=== PATIENT | female | born 1960 | race Caucasian/White ===

== ENCOUNTER → 2017-05-03 | Outpatient (REF) | payer OTHER ==
[~2017-05-03] MED LIST: ACET65TA; BACL10TA2; BACT800T; CIPR500T19; COLA100C2; FLAG500T; GLUC850T; LOPRESS50 PO; MAXIDEX; MAXZ75TA2; MAXZIDE25 PO; MAXZTAB; MELOPOW; OCEAN NASAL SPRAY; PERC5TAB8; VIBR100C
[2017-05-03 11:41] LABS: MEAN CORPUSCULAR HEMOGLOBIN 29.8 pg (27.0-33.0); MEAN CORPUSCULAR HGB CONC 32.4 g/dl (32.0-36.5); MEAN CORPUSCULAR VOLUME 91.8 fl (80.0-96.0); WHITE BLOOD COUNT 18.8 K/mm3 (4.0-10.0)
[2017-05-03 12:01] LABS: ANION GAP 10 MEQ/L (8-16); BLOOD UREA NITROGEN 11 MG/DL (7-18); CALCIUM LEVEL 8.9 MG/DL (8.5-10.1); CARBON DIOXIDE LEVEL 25 MEQ/L (21-32); CHLORIDE LEVEL 104 MEQ/L (98-107); CREATININE FOR GFR 0.58 MG/DL (0.55-1.02); GLOMERULAR FILTRATION RATE > 60.0 (>51); GLUCOSE, FASTING 158 MG/DL (70-105); MAGNESIUM LEVEL 2.2 MG/DL (1.8-2.4); POTASSIUM SERUM 4.5 MEQ/L (3.5-5.1); SODIUM LEVEL 139 MEQ/L (136-145)
== END ==
LOC: M LAB REF 09:30
PROVIDERS: ATTEND Internal Medicine
DX: D64.9 Anemia, unspecified (principal); I12.9 Hypertensive chronic kidney disease with stage 1 through stage 4 chronic kidney disease, or unspecified chronic kidney disease; R00.0 Tachycardia, unspecified

== ENCOUNTER → 2017-05-11 | Outpatient (CLI) | payer OTHER ==
[2017-05-11 19:15] LABS: MEAN CORPUSCULAR HEMOGLOBIN 29.8 pg (27.0-33.0); MEAN CORPUSCULAR HGB CONC 32.5 g/dl (32.0-36.5); MEAN CORPUSCULAR VOLUME 91.6 fl (80.0-96.0); RED CELL DISTRIBUTION WIDTH 13.5 % (11.5-14.5); WHITE BLOOD COUNT 14.9 K/mm3 (4.0-10.0)
[2017-05-11 20:13] LABS: ANION GAP 11 MEQ/L (8-16); BLOOD UREA NITROGEN 17 MG/DL (7-18); CARBON DIOXIDE LEVEL 29 MEQ/L (21-32); CHLORIDE LEVEL 103 MEQ/L (98-107); GLOMERULAR FILTRATION RATE > 60.0 (>51); GLUCOSE, FASTING 79 MG/DL (70-105); POTASSIUM SERUM 4.5 MEQ/L (3.5-5.1); SODIUM LEVEL 143 MEQ/L (136-145)
== END ==
LOC: M WUC 11:51
PROVIDERS: ATTEND Orthopaedic Surgery
DX: Z47.89 Encounter for other orthopedic aftercare (principal)

== ENCOUNTER → 2017-05-27 | Outpatient (REF) | payer OTHER | LOC: M LAB REF 16:40 | PROVIDERS: ATTEND Internal Medicine | DX: D72.829 Elevated white blood cell count, unspecified (principal) ==

== ENCOUNTER → 2018-01-14 | Outpatient (REF) | payer OTHER ==
[2018-01-14 18:24] LABS: INR 0.88
[2018-01-14 18:25] LABS: PARTIAL THROMBOPLASTIN TIME 27.9 SECONDS (26.8-37.9)
== END ==
LOC: M LAB REF 16:43
DX: M54.6 Pain in thoracic spine (principal); Z00.00 Encounter for general adult medical examination without abnormal findings; M54.5 Low back pain

== ENCOUNTER → 2018-01-20 | Outpatient (CLI) | payer OTHER ==
[~2018-01-20] MED LIST changes: -ACET65TA; +ACETAMINOPHEN 325 MG TAB As Ordered; -BACL10TA2; -BACT800T; -CIPR500T19; -COLA100C2; -FLAG500T; -GLUC850T; +ISOVUE-M 300 61% 15ML VIAL (Q9967) As Ordered; +LIDOCAINE 1% MDV 20ML VIAL As Ordered; -LOPRESS50 PO; -MAXIDEX; -MAXZ75TA2; -MAXZIDE25 PO; -MAXZTAB; -MELOPOW; -OCEAN NASAL SPRAY; -PERC5TAB8; -VIBR100C
== END ==
LOC: M RADPRO 07:23
DX: M51.04 Intervertebral disc disorders with myelopathy, thoracic region (principal); M51.06 Intervertebral disc disorders with myelopathy, lumbar region; M54.5 Low back pain; M48.061 Spinal stenosis, lumbar region without neurogenic claudication; I10 Essential (primary) hypertension; R01.1 Cardiac murmur, unspecified; N83.209 Unspecified ovarian cyst, unspecified side; M79.7 Fibromyalgia; Z79.899 Other long term (current) drug therapy; Z88.0 Allergy status to penicillin; Z88.8 Allergy status to other drugs, medicaments and biological substances
CPT/HCPCS: 62284

== ENCOUNTER → 2018-04-08 | Outpatient (REF) | payer OTHER | LOC: M LAB REF 12:03 | DX: R60.0 Localized edema (principal); M19.90 Unspecified osteoarthritis, unspecified site ==

== ENCOUNTER → 2018-04-24 | Outpatient (REF) | payer OTHER ==
[2018-04-24 13:46] LABS: C REACTIVE PROTEIN QUANTITATIV 1.27 MG/DL (0.00-0.30)
== END ==
LOC: M LAB REF 12:10
DX: M79.7 Fibromyalgia (principal)
CPT/HCPCS: 86140

== ENCOUNTER → 2018-11-10 | Outpatient (REF) | payer OTHER ==
[~2018-11-10] MED LIST changes: +ACET65TA; -ACETAMINOPHEN 325 MG TAB As Ordered; +BACL10TA2; +BACT800T; +CARD120C3 PO; +CARD40TA PO; +CIPR500T19; +COLA100C2; +CYCL10TA PO; +CYMB1CAP4 PO; +FLAG500T; +GLUC850T; -ISOVUE-M 300 61% 15ML VIAL (Q9967) As Ordered; -LIDOCAINE 1% MDV 20ML VIAL As Ordered; +LISI-542 PO; +LOPRESS50 PO; +MAXIDEX; +MAXZ75TA2; +MAXZIDE25 PO; +MAXZTAB; +MELA3TAB49 PO; +MELOPOW; +MIRA3350 PO; +OCEAN NASAL SPRAY; +PERC5TAB8; +VIBR100C; +[UNRECOGNIZED DRUG - OTHER]
[2018-11-13 00:06] LABS: Lyme Disease IgG/IgM Antibodie <0.91 ISR (0.00-0.90); Lyme Disease IgM Ab Quantitati <0.80 index (0.00-0.79)
== END ==
LOC: M LAB REF 17:51
PROVIDERS: ATTEND Internal Medicine
DX: M25.50 Pain in unspecified joint (principal)

== ENCOUNTER → 2018-11-17 | Outpatient (REF) | payer OTHER | LOC: M LAB REF 12:33 | PROVIDERS: ATTEND Internal Medicine | DX: I10 Essential (primary) hypertension (principal) ==

== ENCOUNTER 2019-04-20 10:57 | Emergency (ER) | payer OTHER ==
[~2019-04-20] VITALS: Ht 165.1 cm; Wt 103.6 kg
[2019-04-20 12:32] VITALS: BP 145/74
--- NOTE | 2019-04-20 13:51 | REP ---
REASON FOR EXAM: Pain after trauma. The examination consists of AP pelvis and two-view liver function test hip. A single AP view of the pelvis was performed. The hip joint spaces are symmetric and relatively well maintained. There is no acute fracture or destructive osseous lesion. Spinal fixation is noted including sacroiliac fixation. Two views of the left hip show the hip joint space to be symmetric and relatively well maintained with no acute fracture, dislocation, or subluxation. Electronically Signed by Gene Calabrese DO 04/20/2019 04:45 P
== END 2019-04-20 12:55 | disposition home or self-care (01) ==
LOC: M ED 10:57
DX: S70.02XA Contusion of left hip, initial encounter (principal); W19.XXXA Unspecified fall, initial encounter; Y92.099 Unspecified place in other non-institutional residence as the place of occurrence of the external cause; Y93.9 Activity, unspecified; Y99.9 Unspecified external cause status; J30.2 Other seasonal allergic rhinitis; Z79.84 Long term (current) use of oral hypoglycemic drugs; Z79.899 Other long term (current) drug therapy; Z91.013 Allergy to seafood; Z91.010 Allergy to peanuts; Z91.89 Other specified personal risk factors, not elsewhere classified; Z88.0 Allergy status to penicillin; Z88.8 Allergy status to other drugs, medicaments and biological substances

== ENCOUNTER → 2020-04-04 | Outpatient (CLI) | payer OTHER ==
[~2020-04-04] MED LIST changes: +ALBU8.5H; +BUPR15TASR; +CYCL-707 PO; -CYCL10TA PO; +E-Z-GAS II EFFERVESCENT PACKET (SODIUM BICARB./CITRIC ACID/SIMETHICONE) As Ordered ONE; +E-Z-GAS II EFFERVESCENT PACKET (SODIUM BICARB./CITRIC ACID/SIMETHICONE) ONE; +E-Z-HD 98% w/w 340GM SUSP BTL As Ordered ONE; +E-Z-HD 98% w/w 340GM SUSP BTL ONE; +E-Z-PAQUE 96% w/w SUSP 176GM BTL As Ordered ONE; +E-Z-PAQUE 96% w/w SUSP 176GM BTL ONE; +ESSE250T PO; +GNP650TA8 PO; +HYDR12.55; +HYDR200T3; +LISI-538; +METO1TAB33; +OMEP-218 PO; +ORPH100T; +SPIR-10; +TRAM50TA2
--- NOTE | 2020-05-30 08:19 | REP ---
AIR CONTRAST ESOPHAGRAM: The procedure was performed under the direct supervision of Dr. Galloway. The images were reviewed with Dr. Galloway. FINDINGS: A single view PA chest x-ray is submitted as a cattle broker film. The superior mediastinal structures are midline. The heart size is within normal limits. The lungs are clear. Liquid barium and gas-producing granules were given in the erect position as well as liquid barium in the prone oblique positions in order to perform a double contrast esophagram examination. The oral and pharyngeal stages of deglutition are unremarkable. During esophageal transport, there are tertiary waves demonstrated. There is a feline esophagus appearance which may represent early esophagitis. There is a large, fixed hiatal hernia. There is gastroesophageal reflux demonstrated to the level of the thoracic inlet. IMPRESSION: 1. There are tertiary waves demonstrated. 2. There is a feline esophagus appearance which may represent early esophagitis. There is no hilario ulcer identified. 3. There is a large fixed hiatal hernia. There is gastroesophageal reflux demonstrated to the level of the thoracic inlet. 0.8 minutes of fluoroscopy time was utilized for this procedure. [facility]
== END ==
LOC: M RAD 08:26
PROVIDERS: ATTEND Internal Medicine Gastroenterology
DX: R13.12 Dysphagia, oropharyngeal phase (principal); K44.9 Diaphragmatic hernia without obstruction or gangrene

== ENCOUNTER → 2020-06-05 | Outpatient (CLI) | payer OTHER ==
[~2020-06-05] MED LIST changes: -E-Z-GAS II EFFERVESCENT PACKET (SODIUM BICARB./CITRIC ACID/SIMETHICONE) As Ordered ONE; -E-Z-GAS II EFFERVESCENT PACKET (SODIUM BICARB./CITRIC ACID/SIMETHICONE) ONE; -E-Z-HD 98% w/w 340GM SUSP BTL As Ordered ONE; -E-Z-HD 98% w/w 340GM SUSP BTL ONE; -E-Z-PAQUE 96% w/w SUSP 176GM BTL As Ordered ONE; -E-Z-PAQUE 96% w/w SUSP 176GM BTL ONE
== END ==
LOC: M LABSMTC 09:40
PROVIDERS: ATTEND Anesthesiology
DX: Z01.812 Encounter for preprocedural laboratory examination (principal); Z20.828 Contact with and (suspected) exposure to other viral communicable diseases
CPT/HCPCS: C9803; U0003

== ENCOUNTER 2020-06-10 10:33 | Day surgery (SDC) | payer OTHER ==
[~2020-06-10] VITALS: Ht 162.6 cm; Wt 99.7 kg
[~2020-06-10 10:33] MED LIST changes: -ESSE250T PO; +NS 1,000 ML IV ONE; -OMEP-218 PO
[2020-06-10] MEDS ORDERED: ESSE250T PO (11:01)
[2020-06-10] MEDS ORDERED: OMEP-218 PO (11:01)
[2020-06-10] MEDS ORDERED: CYCL-707 PO (11:01)
[2020-06-10] MEDS ORDERED: propofoL 200 MG/20 ML VIAL As Ordered ONE (11:18)
[2020-06-10] MEDS ORDERED: LIDOCAINE 2% 100MG/5ML SDV (FOR ANES.) As Ordered ONE (11:18)
[2020-06-10] MEDS ORDERED: fentaNYL 100 MCG/2 ML INJECTION (J3010) As Ordered ONE (12:31)
--- NOTE | 2020-06-10 12:49 | ROOR ---
Patient Name: Brenda Ramirez Procedure Date: 06/10/2020 12:32 PM Date of : 1960 Age: 59 Gender: Female Note Status: Finalized Procedure: Upper GI endoscopy Indications: Oropharyngeal phase dysphagia Providers: Celestino HAMPTON MD Referring MD: Barbra HOOVER MD Requesting Provider: Medicines: Monitored Anesthesia Care Complications: No immediate complications. Procedure: Pre-Anesthesia Assessment: - The heart rate, respiratory rate, oxygen saturations, blood pressure, adequacy of pulmonary ventilation, and response to care were monitored throughout the procedure. The Endoscope was introduced through the mouth, and advanced to the second part of duodenum. The upper GI endoscopy was accomplished without difficulty. The patient tolerated the procedure well. Findings: A web was found at the cricopharyngeus. The scope was withdrawn. Dilation was performed with a Rocha dilator with mild resistance at 54 Fr. The dilation site was examined following endoscope reinsertion and showed complete resolution of luminal narrowing. A large hiatal hernia was present. A single 5 mm semi-sessile polyp was found on the anterior wall of the stomach. The polyp was removed with a cold snare. Resection and retrieval were complete. Two non-bleeding gastric ulcers with no stigmata of bleeding were found in the prepyloric region of the stomach. The largest lesion was 7 mm in largest dimension. Biopsies were taken with a cold forceps for histology. The exam was otherwise without abnormality. 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 Dilated. - Large hiatal hernia. - A single gastric polyp. Resected and retrieved. - Non-bleeding gastric ulcers with no stigmata of bleeding. Biopsied. - The examination was otherwise normal. Recommendation: - Use Prilosec (omeprazole) 40 mg PO daily. - (the script was sent to your pharmacy on file) - Telephone endoscopist for pathology results in 2 weeks. - Repeat upper endoscopy in 3 months to check healing. - My office will call you to reschedule the procedure. Celestino Hampton MD Celestino HAMPTON MD 06/10/2020 12:49:03 PM Electronically signed by Celestino HAMPTON MD Number of Addenda: 0 Note Initiated On: 06/10/2020 12:32 PM Estimated Blood Loss: Estimated blood loss: none.
[2020-06-10 13:10] VITALS: BP 125/73
== END 2020-06-10 13:19 | disposition home or self-care (01) ==
LOC: M OPP 10:33
PROVIDERS: ATTEND Internal Medicine Gastroenterology
DX: Q39.4 Esophageal web (principal); K44.9 Diaphragmatic hernia without obstruction or gangrene; K31.7 Polyp of stomach and duodenum; K25.9 Gastric ulcer, unspecified as acute or chronic, without hemorrhage or perforation; R13.12 Dysphagia, oropharyngeal phase; K57.30 Diverticulosis of large intestine without perforation or abscess without bleeding; M79.7 Fibromyalgia; Z79.891 Long term (current) use of opiate analgesic; Z79.899 Other long term (current) drug therapy; Z88.0 Allergy status to penicillin; Z88.6 Allergy status to analgesic agent; Z91.013 Allergy to seafood; Z91.018 Allergy to other foods; Z91.048 Other nonmedicinal substance allergy status
CPT/HCPCS: 43239; 43251; 43450; 88305; J3010

== ENCOUNTER → 2020-10-02 | Outpatient (CLI) | payer OTHER ==
[~2020-10-02] MED LIST changes: +BACL10TA2 PO; -BUPR15TASR; +BUPR15TASR PO; +ESSE250T PO; -HYDR12.55; +HYDR12.55 PO; -HYDR200T3; +HYDR200T3 PO; -LISI-538; -LISI-542 PO; +LISI-898 PO; +LISI20TA33 PO; -METO1TAB33; +METO1TAB33 PO; +NORT50CA PO; -NS 1,000 ML IV ONE; +OMEP-218 PO; -SPIR-10; +SPIR-10 PO; -TRAM50TA2; +TRAM50TA2 PO
== END ==
LOC: M LABSMTC 09:04
PROVIDERS: ATTEND Anesthesiology
DX: Z01.812 Encounter for preprocedural laboratory examination (principal); Z20.822 Contact with and (suspected) exposure to COVID-19

== ENCOUNTER 2020-10-07 12:47 | Day surgery (SDC) | payer OTHER ==
[~2020-10-07] VITALS: Ht 160 cm; Wt 96.1 kg
[~2020-10-07 12:47] MED LIST changes: +LIDOCAINE 2% 100MG/5ML SDV (FOR ANES.) As Ordered ONE; +LISI-538 PO; +LISI-542 PO; -LISI-898 PO; -LISI20TA33 PO; +NS 1,000 ML IV ONE; +propofoL 200 MG/20 ML VIAL As Ordered ONE
--- OUTSIDE RECORDS SUMMARY | 2020-10-07 12:53 | CCD | Continuity of Care Document ---
Author Author [facility] Organization [facility] Address Unknown Phone Unavailable Care Team Providers Care Human Resource Assistant Name Role Phone Juju Dominguez MD Unavailable Unavailable Allergies, Adverse Reactions, Alerts Substance Reaction Status Criticality tree nut Active No Information Fish Containing Products Active No Information Penicillins Active No Information aspirin Active No Information Medications Medication Instructions Dosage Effective Dates (start - stop) Sta tus Comments Plaquenil 200 mg tablet TAKE TWO TABLETS BY MOUTH EVERY DAY - Active DX: M06.09 nortriptyline 10 mg capsule take 1 - 3 Capsule by oral route ev david bedtime - Active tramadol 50 mg tablet take 1 - 2 Tablet by oral ro brigida 4 times every day as needed 50 MG - Active MDD = 6 (SIX) Lidoderm 5 % topical patch apply 1 patch by transderma l route every day (May wear up to 12hours.) 1.00 patch - Active omeprazole 40 mg capsule,delayed release take 1 capsul e by oral route every day before a meal 40 MG - Active bupropion HCl XL 150 mg 24 hr tablet, extended release take 1 tablet by oral route every day 150 MG - Active spironolactone 25 mg tablet take 0.5 tablet by oral route every day 12.5 MG - Active metoprolol succinate ER 100 mg tablet,extended release 24 hr take 1 tablet by oral route every day 100 MG - Active hydrochlorothiazide 12.5 mg capsule take 1 capsule by oral r oute every day 12.5 MG - Active Tumersaid 100 mg-100 mg-100 mg-125 mg tablet - Active lisinopril 20 mg tablet take 1 tablet by oral route every day 20 MG - Active magnesium 64 mg (magnesium chloride) tablet,delayed release 5 ti mes a week - Active vitamin B complex capsule one po every day - Acti ve flaxseed oil 1,300 mg-omega 3,6,9 845 mg-117 mg-117 mg capsu le one po every day - Active melatonin 10 mg tablet one po every hs as needed - Active Miralax 17 gram/dose Oral Powder take (17G) by oral r oute every day mixed with 8 oz. water, juice, soda, coffee or tea 17 G - Active EpiPen 0.3 mg/0.3 mL (1:1,000) IM Injector inject (0.3 MG) by intramuscular route once as needed for anaphylaxis - Active Problems Condition Type Effective Dates (start - stop) Clinical S tatus Comments Fibromyalgia Diagnosis interpretation (observable entity) Rheumatoid arthritis without rheumatoid factor, multip le sites Diagnosis interpretation (observable entity) Rheumatoid arthritis w/o rheumatoid factor, multiple s ites Diagnosis interpretation (observable entity) Fibromyalgia Diagnosis interpretation (observable entity) Rheumatoid arthritis w/o rheumatoid factor, multiple s ites Diagnosis interpretation (observable entity) - Rheumatoid arthritis w/o rheumatoid factor, multiple s ites Diagnosis interpretation (observable entity) Fibromyalgia Diagnosis interpretation (observable entity) Primary generalized (osteo)arthritis Diagnosis interpr etation (observable entity) Rheumatoid arthritis w/o rheumatoid factor, multiple s ites Diagnosis interpretation (observable entity) Fibromyalgia Diagnosis interpretation (observable entity) Rheumatoid arthritis w/o rheumatoid factor, multiple s ites Diagnosis interpretation (observable entity) Fibromyalgia Diagnosis interpretation (observable entity) Rheumatoid arthritis w/o rheumatoid factor of multiple sites Diagnosis interpretation (observable entity) Other mcfp drug therapy Diagnosis interpretation (observable e ntity) Fibromyalgia Diagnosis interpretation (observable entity) Polymyalgia rheumatica Diagnosis interpretation (observable entity) Fibromyalgia Diagnosis interpretation (observable entity) Fibromyalgia Diagnosis interpretation (observable entity) Fibromyalgia Diagnosis interpretation (observable entity) Fibromyalgia Diagnosis interpretation (observable entity) Spinal stenosis, lumbar region Diagnosis interpretation (observable entity) Fibromyalgia Diagnosis interpretation (observable entity) Primary generalized (osteo)arthritis Diagnosis interpr etation (observable entity) Fibromyalgia Diagnosis interpretation (observable entity) Primary generalized (osteo)arthritis Diagnosis interpr etation (observable entity) Fibromyositis Problem (finding) - Active Mapped from [employer] Chronic Conditions table on 12/31/2014 by the ICD9 to SNOMED Bulk Mapping Utility. The mapped diagnosis code was Fibromyalgia / Myalgia, 729.1, added by Chaka Bermudez MD, with responsible provider Chaka Bermudez MD. Onset date 11/11/2012; last addressed on 05/22/2013. Degenerative joint disease involving multiple joints Problem (finding) - Active Mapped from [facility] Chronic Cond itions table on 11/16/2014 by the ICD9 to SNOMED Bulk Mapping Utility. The mapped diagnosis code was Osteoarthritis - multiple sites, 715.09, added by Chaka Bermudez MD, with res ponsible provider Chaka Bermudez MD. Onset date 11/11/2012; last addressed on 11/11/2012. Procedures Procedure Date No Information Results Test Name Date and Time Measure Units Reference Range Abnormal Flag St atus Comments No Information Advance Directives Directive Yes / No Effective Date File Name No Information Encounters Encounter Description Practice Location Reason(s) For Visit Diagnose s Date Provider Providers Copied on Encounter [facility], [address] [place] [address], [id number], tel:[phone] [facility] No Information Alberto Matute. [address] [place] [address], [id number], [place]. tel:[phone] [facility], [address] [place] [address], [id number], [place] tel:[phone] [facility] No Information Lara Null. [address] [place] [address], [id number], [place]. tel:[phone] [facility], [address] [place] [address], [id number], [place] tel:[phone] [facility] FibromyalgiaRheumatoid arthritis without rheumatoid factor, multiple sites Lara Null. [address] [place] [address], [id number], [place]. tel:[phone] Consulting Provider: Ferny Jiménez MD, [address] [place] [address], [address]. tel:[phone] Provider: Celestino Hu, [address] [facility] [address], [place], [address]. tel:[phone] Consulting Provider: Annmarie Winchester [facility], [address] [facility] [address], [place], [address]. tel:[phone] Provider: Barbra Wilson MD, [address] [address], [place], [address]. tel:[phone] [facility], [address] [place] [address], [id number], [place] tel:[phone] [facility] No Information Lara Null. [address] [place] [address], [id number], [place]. tel:[phone] [facility], [address] [place] [address], [id number], [place] tel:[phone] [facility] Rheumatoid arthritis w/o rheumatoid factor, multiple sitesFibromyalgia Lara Null. [address] [place] [address], [id number], [place]. tel:[phone] Consulting Provider: Ferny Jiménez MD, [address] [place], [address]. tel:[phone] Provider: Celestino Hu, [address] [address], [place], [address]. tel:[phone] Provider: Barbra Wilson MD, [address], [address]. tel:[phone] [facility], [address] [place] [address], [id number], [place] tel:[phone] [facility] No Information Lara Null. [address] [place] [address], [id number], [place]. tel:[phone] [facility], [address] [place] [address], [id number], [place] tel:[phone] [facility] Rheumatoid arthritis w/o rheumatoid factor, multiple sites Lara negron. [address] [place] [address], [id number], [place]. tel:[phone] Referring Provider: Barbra Wilson MD, [address], [address]. tel:[phone] [facility], [address] [place] [address], [id number], [place] tel:[phone] [facility] Rheumatoid arthritis w/o rheumatoid factor, multiple sitesFibromyalgiaPrimary generalized (osteo)arthritis Lara Null. [address] [place] [address], [id number], [place]. tel:[phone] Consulting Provider: Ferny Jiménez MD, [address] [place] [address], [id number]. tel:[phone] Provider: Celestino Hu, [address] [place] [address], [place], [address]. tel:[phone] Provider: Barbra Wilson MD, [address], [address]. tel:[phone] [facility], [address] [place] [address], [id number], [place] tel:[phone] [facility] Rheumatoid arthritis w/o rheumatoid factor, multiple sitesFibromyalgia Lara Null. [address] [place] [address], [id number], [place]. tel:[phone] Consulting Provider: Ferny Jiménez MD, [address] [place] [address], [address]. tel:[phone] Provider: Celestino Hu, [address] [address], [place], [address]. tel:[phone] Provider: Barbra Wilson MD, [address], [address]. tel:[phone] [facility], [address] [place] [address], [id number], tel:[phone] [facility] Rheumatoid arthritis w/o rheumatoid factor, multiple sitesFibromyalgia Lara Null. [address] [place] [address], [id number], . tel:[phone] Consulting Provider: Ferny Jiménez MD, [address] [place] [address], [address]. tel:[phone] Provider: Celestino Hu, [address] [place] [address], [place], [address]. tel:[phone] Provider: Barbra Wilson MD, [address], [address]. tel:[phone] [facility], [address] [place] [address], [id number], tel:[phone] [facility] Rheumatoid arthritis w/o rheumatoid factor of multiple sitesOther mcfp drug therapy Lara Null. [address] [place] [address], [id number], . tel:[phone] Consulting Provider: Ferny Jiménez MD, [address] [place] [address], [address]. tel:[phone] Provider: Celestino Hu, [address] [place] [address], [address]. tel:[phone] Referring Provider: Barbra Wilson MD, [address], [address]. tel:[phone] [facility], [address] [place] [address], [id number], tel:[phone] [facility] FibromyalgiaPolymyalgia rheumatica Lara Null. [address] [place] [address], [id number], [place]. tel:[phone] Consulting Provider: Ferny Jiménez MD, [address] [place], [address]. tel:[phone] Provider: Barbra Wilson MD, [address] [address], [place], [address]. tel:[phone] [facility], [address] [place] [address], [id number], [place] tel:[phone] [facility] Fibromyalgia Lara Null. [address] [place], [place], [id number], [place]. tel:[phone] Consulting Provider: Ferny Jiménez MD, [address] [place], [address]. tel:[phone] Provider: Barbra Wilson MD, [address], [address]. tel:[phone] [facility], [address] [place] [address], [id number], [place] tel:[phone] [facility] Fibromyalgia Lara Null. [address] [place] [address], [id number], [place]. tel:[phone] Consulting Provider: Ferny Jiménez MD, [address] [place], [address]. tel:[phone] Provider: Barbra Wilson MD, [address], [address]. tel:[phone] [facility], [address] [place] [address], [id number], [place] tel:[phone] [facility] Fibromyalgia Lara Null. [address] [place], [place], [id number], [place]. tel:[phone] Consulting Provider: Ferny Jiménez MD, [address] [place], [address]. tel:[phone] Provider: Barbra Wilson MD, [address], [address]. tel:[phone] [facility], [address] [place] [address], [id number], [place] tel:[phone] [facility] FibromyalgiaSpinal stenosis, lumbar region Lara Null. [address] [place] [address], [id number], [place]. tel:[phone] Consulting Provider: Ferny Jiménez MD, [address] [place] [address], [address]. tel:[phone] Provider: Barbra Wilson MD, [address], [address]. tel:[phone] [facility], [address] [place] [address], [id number], [place] tel:[phone] [facility] FibromyalgiaPrimary generalized (osteo)arthritis Lara Null. [address] [place] [address], [id number], [place]. tel:[phone] Referring Provider: Barbra Wilson MD, [address], [address]. tel:[phone] [facility], [address] [place] [address], [id number], [place] tel:[phone] [facility] FibromyalgiaPrimary generalized (osteo)arthritis Lara Null. [address] [place] [address], [id number], [place]. tel:[phone] Referring Provider: Barbra Wilson MD, [address], [address]. tel:[phone] [facility], [address] [place] [address], [id number], [place] tel:[phone] [facility] No Information Lara Null. [address] [place], [place], [id number], . tel:[phone] Referring Provider: Barbra Wilson MD, [address] [address], [place], [address]. tel:[phone] Family History Family Member Type Diagnosis Age At Onset Father Problem (finding) Gout Maternal grandmother Problem (finding) arthritis Immunizations Vaccine Date Status Comments Historical Influenza Vaccine administered Not e: approx ; Source: Other Provider Influenza, injectable, MDCK, preservativ e free, 0.5 mL dosage, Flucelvax Quad administered Note: patient evie jasso ; Source: Other Provider Influenza, injectable, quadrivalent, spl it virus, 18 years or older Afluria Quad administered Note: patient evie alig e ; Source: Other Provider Influenza, injectable, trivalent, split virus, 4 years and older, Fluvirin administered Note: patient evie jasso ; Source: Other Provider Never had a PPV23 administered Source: New Im munization Record Payers Payer name Insurance type Covered alliance party ID Authorization(s ) [employer] No Referral Required [id number] Social History Type Description Quantity Date Captured Comments Sex Female Smoking Status No Information Vital Signs Date / Time: Height Weight BMI Pulse Rate Blood Pressure Temperatu re Respiratory Rate Body Surface Area Head Circumference BMI percentile Pulse Ox In haled Ox No Information Chief Complaint And Reason For Visit No Information Reason For Referral Reason For Referral No Information Plan Of Treatment Date Type Action Status Referral Referred To: [facility] Ordered: Referrals: Dermatology. [facility]. Location: [place], [place]. Evaluate and treat Appointment date/timeframe: 08/18/2020 ordered Referral Ordered: Celestino Ramos -[facility] : Ophthalmology (related to Rheumatoid arthritis w/o rheumatoid factor, multiple sites) ordered Referral Referred To: Celestino Ramos [address] [facility] [address] [place], [phone] Ordered: Referrals: [facility] Physicians : Ophthalmology. Celestino Ramos ordered Appointment Brenda Ramirez BOOKED History Of Present Illness Encounter Date Complaint History Of Present I llness No Information Functional Status Date Functional Assessment No Information Medications Administered Medication Instructions Dosage Effective Dates (start - stop) Sta tus Comments No Information Instructions Date Instruction Additional Informati on I will refer you to Saurabh FLEMING. Call if problems develop with the feet. Call if problems develop. Call if problems develop.It needs to stop getting worse before it improves. If we don't call you about the test resu lts, call us. Risks/benefits of medications discussed, handout given on DMARDs [facility] handout provided and discussed on Polymyalgia Rheumatica, Rheumatoid Arthritis Call if problems develop. Call if problems develop. Call if problems develop. Physical Examination Exam Findings Details No Information
--- OUTSIDE RECORDS SUMMARY | 2020-10-07 12:54 | CCD | Continuity of Care Document ---
Author Author Brenda RIVERA MD Organization Unknown Address [address] [place] [address] Phone [phone] Problems Active Problems Provider Date Excessive and frequent menstruation Ronna Rivera MD Onse t: 12/26/2011 Social History Type Date Description Comments Sex Unknown Tobacco Use Start: Unknown Never Smoked Cigarettes Tobacco Use Start: Unknown Non-Smoker, Non-Drinker, Non-Luis Fernando g User Smoking Status Reviewed: 08/26/20 Non-Smoker, Non-Drinker, Non- Drug User Tobacco Use Start: Unknown Patient has never smoked Exercise Type/Frequency Exercises regularly Allergies, Adverse Reactions, Alerts Active Allergies Reaction Severity Comments Date Aspirin 09/05/2007 PCN 09/05/2007 Nuts 09/05/2007 Fish 09/05/2007 Medications Active Medications SIG Qnty Indications Ordering Provide r Date Vitamin D 32638Vyaj Capsules weekly Ronna Rivera MD 03/07/2012 Lisinopril 10mg Tablets Ronna Rivera MD 02/21/2011 Tramadol HCL 50mg Tablets Unknown Melatonin 3mg Tablets 3 at hs Unknown Miralax 3350NF Powder Unknown Plaquenil 200mg Tablets Unknown Metoprolol Succinate ER 100mg Tablets ER 24HR Unknown Magnesium 400mg Tablets Unknown Prilosec 40mg Capsules DR Unknown Hydrochlorothiazide 12.5mg Capsule s 1 by mouth every morning Unknown Spironolactone 25mg Tablets one by mouth twice daily Unknown Nortriptyline 30MG AT hs Unknown Bupropion HCL ER (SR) 150mg Tablets ER 12HR 1 by mouth daily Unknown Immunizations Description No Information Available Vital Signs Date Vital Result Comment 08/26/2020 8:07am BP Systolic 128 mmHg BP Diastolic 76 mmHg Height 63.25 inches 5'3.25" Weight 207.00 lb BMI (Body Mass Index) 36.4 kg/m2 BSA (Body Surface Area) 1.97 m2 08/21/2019 2:46pm BP Systolic 128 mmHg BP Diastolic 66 mmHg Height 63.5 inches 5'3.50" Weight 225.00 lb BMI (Body Mass Index) 39.2 kg/m2 BSA (Body Surface Area) 2.04 m2 Results Test Acquired Date Facility Test Result H/L Range Note Thinprep W/Reflex HR HPV If Asc-US 08/26/2020 Propa th TP Reflex HPV ASCUS Normal Normal 1 TP Reflex HPV ASCUS SEE IMAGE 1 SPECIME N PART A. Cervical, Endocervical, ThinPrep Pap (Walking Dragline Operator) CYTOLOGY HX-------- Other Information:Previous Normal Pap: 08/21/19 Post-menopausal FINAL DIAGNOSIS---- INTERPRETATION: Negative for Intraepithelial Lesion or Malignancy. SPECIMEN ADEQUACY:Satisfactory for evaluation. Endocervical/transformation zone component present. Procedures Date Code Description Status 09/17/2018 [id number] Mammogram Completed 08/26/2015 [id number] Mammogram Completed Medical Devices Description No Information Available Encounters Type Date Location Provider Dx Diagnosis Office Visit 08/26/2020 9:00a [facility] tu[facility] hand Ronna Rivera MD Z0 1.419 Encntr for sweet dough mixer exam (general) (routine) w/o abn findings Z12.4 Encounter for screening for malignant neoplasm of cervix Z12.39 Encounter for oth screening for malignant neoplasm of breast Assessments Date Code Description Provider 08/26/2020 Z01.419 Encounter for gyneco logical examination (general) (routine) without abnormal findings Ronna Rivera MD 08/26/2020 Z12.4 Encounter for screening for vicky gnant neoplasm of cervix Ronna Rivera MD 08/26/2020 Z12.39 Encounter for other screening for malignant neoplasm of breast Ronna Rivera MD Plan of Treatment Future Appointment(s):* 09/08/2021 8:45 am - Ronna Rivera MD at [facility] tufter hand 08/26/2020 - Ronna Rivera MD* Z01.419 Encounter for gynecological examination (general) (routine) without abnormal findings * Z12.4 Encounter for screening for malignant neoplasm of cervix * Z12.39 Encounter for other screening for malignant neoplasm of breast Functional Status Description No Information Available Mental Status Description No Information Available Referrals Description No Information Available
--- OUTSIDE RECORDS SUMMARY | 2020-10-07 12:54 | CCD | Continuity of Care Document ---
Author Author Brenda RIVERA MD Organization Unknown Address [address] [place] [address] Phone [phone] Problems Active Problems Provider Date Excessive and [...] Indications Ordering Provide r Date Vitamin D 21275Nqym Capsules weekly Ronna Rivera MD 03/07/2012 Lisinopril [...] BSA (Body Surface Area) 2.04 m2 Results Description No Information Available Procedures Date Code Description Status 09/17/2018 [id number] Mammogram Completed 08/26/2015 [id number] Mammogram Completed Medical Devices Description No Information Available Encounters Type Date Location Provider Dx Diagnosis Office Visit 08/26/2020 9:00a [facility] insulation mechanic Ronna Rivera MD Z0 1.419 Encntr for roofer applicator exam (general) (routine) w/o abn findings Z12.4 [...] 8:45 am - Ronna Rivera MD at [facility] insulation mechanic 08/26/2020 - Ronna Rivera MD* Z01.419 Encounter for gynecological examination (general) (routine) without abnormal findings * Z12.4 Encounter for screening for malignant neoplasm of cervix* New Labs:* Thinprep W/Reflex HR HPV If Asc-US, Ordered: 08/26/20 * Z12.39 Encounter for other screening for malignant neoplasm of breast Functional Status Description No Information Available Mental Status Description No Information Available Referrals Description No Information Available
--- OUTSIDE RECORDS SUMMARY | 2020-10-07 12:54 | CCD | Continuity of Care Document ---
Author Author [facility] Organization [facility] Address Unknown Phone Unavailable Care Team Providers Care Compressed Air Pile Driver Operator Name Role Phone Chaka Bermudez MD Unavailable Unavailable Allergies, Adverse Reactions, Alerts [...] 1 - 2 Tablet by oral ro grindstone 4 times every day as needed 50 [...] once as needed for anaphylaxis - Active Plaquenil 200 mg tablet TAKE TWO TABLETS BY MOUTH EVERY DAY - No Longer Active Problems Condition Type Effective Dates (start [...] multiple sites Diagnosis interpretation (observable entity) Other custodial drug therapy Diagnosis interpretation (observable e ntity) [...] Fibromyositis Problem (finding) - Active Mapped from [facility] Chronic Conditions table on 12/31/2014 by the ICD9 to SNOMED Bulk Mapping Utility. The mapped diagnosis code was Fibromyalgia / Myalgia, 729.1, added by Chaka Bermudez MD, with responsible provider Chaka Bermudez MD. Onset date 11/11/2012; last addressed on 05/22/2013. Degenerative joint disease involving multiple joints Problem (finding) - Active Mapped from [facility] Chronic Cond itions table on [...] s Date Provider Providers Copied on Encounter Critical access hospital, [address] [place] [address], [id number], tel:[phone] [facility] No Information Lara Null. [address] [place] [address], [id number], [place]. tel:[phone] Critical access hospital, [address] [place] [address], [id number], [place] tel:[phone] Critical access hospital No Information Lara Null. [address] [place] [address], [id number], [place]. tel:[phone] Critical access hospital, [address] [place] [address], [id number], [place] tel:[phone] [facility] FibromyalgiaRheumatoid arthritis without rheumatoid factor, multiple sites Lara Null. [address] [place] [address], [id number], [place]. tel:[phone] Consulting Provider: Ferny Jiménez MD, [address] [place] [address], [address]. tel:[phone] Provider: Celestino Hu, [address] [facility] [address], [place], [address]. tel:[phone] Consulting Provider: Annmarie KINNEYP, [address] [facility] [address], [place], [address]. tel:[phone] Provider: Barbra Wilson MD, [address] [address], [place], [address]. tel:[phone] [facility], [address] [place] [address], [id number], [place] tel:[phone] [facility] No Information Hycalin Null. [address] [place] [address], [id number], [place]. tel:[phone] [facility], [address] [place] [address], [id number], [place] tel:[phone] [facility] No Information Hycalin Null. [address] [place] [address], [id number], [place]. tel:[phone] [facility], [address] [place] [address], [id number], [place] tel:[phone] [facility] Rheumatoid arthritis w/o rheumatoid factor, multiple sitesFibromyalgia Lara Null. [address] [place] [address], [id number], [place]. tel:[phone] Consulting Provider: Ferny Jiménez MD, [address] [facility], [place], [address]. tel:[phone] Provider: Celestino Hu, [address] [facility] [address], [place], [address]. tel:[phone] Provider: Barbra Wilson MD, [address] [facility] [address], [place], [address]. tel:[phone] [facility], [address] [place] [address], [id number], [place] tel:[phone] Critical access hospital No Information Lara Null. [address] [place] [address], [id number], [place]. tel:[phone] Critical access hospital, [address] [place] [address], [id number], [place] tel:[phone] Critical access hospital Rheumatoid arthritis w/o rheumatoid factor, multiple sites Lara negron. [address] [place] [address], [id number], [place]. tel:[phone] Referring Provider: Barbra Wilson MD, [address], [address]. tel:[phone] Critical access hospital, [address] [place] [address], [id number], [place] tel:[phone] Critical access hospital Rheumatoid arthritis w/o rheumatoid factor, multiple sitesFibromyalgiaPrimary generalized (osteo)arthritis Lara Null. [address] [place] [address], [id number], [place]. tel:[phone] Consulting Provider: Ferny Jiménez MD, [address] [facility], [place], [address]. tel:[phone] Provider: Celestino Hu, [address] [facility] [address], [place], [address]. tel:[phone] Provider: Barbra Wilson MD, [address], [address]. tel:[phone] Critical access hospital, [address] [place] [address], [id number], [place] tel:[phone] Critical access hospital Rheumatoid arthritis w/o rheumatoid factor, multiple sitesFibromyalgia Lara Null. [address] [place] [address], [id number], [place]. tel:[phone] Consulting Provider: Ferny Jiménez MD, [address] [place], [address]. tel:[phone] Provider: Celestino Hu, [address] [facility] [address], [place], [address]. tel:[phone] Provider: Barbra Wilson MD, [address] [address], [place], [address]. tel:[phone] [facility], [address] [place] [address], [id number], [place] tel:[phone] Critical access hospital Rheumatoid arthritis w/o rheumatoid factor, multiple sitesFibromyalgia Lara Null. [address] [place] [address], [id number], [place]. tel:[phone] Consulting Provider: Ferny Jiménez MD, [address] [place], [address]. tel:[phone] Provider: Celestino Hu, [address] [address], [place], [address]. tel:[phone] Provider: Barbra Wilson MD, [address] [address], [place], [address]. tel:[phone] Critical access hospital, [address] [place] [address], [id number], [place] tel:[phone] Critical access hospital Rheumatoid arthritis w/o rheumatoid factor of multiple sitesOther custodial drug therapy Lara Null. [address] [place] [address], [id number], [place]. tel:[phone] Consulting Provider: Ferny Jiménez MD, [address] [place] [address], [address]. tel:[phone] Provider: Celestino Hu, [address] [facility] [address], [place], [address]. tel:[phone] Referring Provider: Barbra Wilson MD, [address], [address]. tel:[phone] [facility], [address] [place] [address], [id number], [place] tel:[phone] Critical access hospital FibromyalgiaPolymyalgia rheumatica Lara Null. [address] [place], [place], [id number], [place]. tel:[phone] Consulting Provider: Ferny Jiménez MD, [address] [place], [address]. tel:[phone] Provider: Barbra Wilson MD, [address], [address]. tel:[phone] Critical access hospital, [address] [place] [address], [id number], [place] tel:[phone] Critical access hospital Fibromyalgia Lara Null. [address] [place], [place], [id number], [place]. tel:[phone] Consulting Provider: Ferny Jiménez MD, [address] [place], [address]. tel:[phone] Provider: Barbra Wilson MD, [address], [address]. tel:[phone] [facility], [address] [place] [address], [id number], [place] tel:[phone] Critical access hospital Fibromyalgia Lara Null. [address] [place] [address], [id number], [place]. tel:[phone] Consulting Provider: Ferny Jiménez MD, [address] [place], [address]. tel:[phone] Provider: Barbra Wilson MD, [address], [address]. tel:[phone] [facility], [address] [place] [address], [id number], [place] tel:[phone] Critical access hospital Fibromyalgia Lara Null. [address] [place] [address], [id number], [place]. tel:[phone] Consulting Provider: Ferny Jiménez MD, [address] [place], [address]. tel:[phone] Provider: Barbra Wilson MD, [address] [facility] [place] [address] [place] [address], [address]. tel:[phone] [facility], [address] [place] [address], [id number], [place] tel:[phone] Critical access hospital FibromyalgiaSpinal stenosis, lumbar region Lara Null. [address] [place] [address], [id number], [place]. tel:[phone] Consulting Provider: Ferny Jiménez MD, [address] [place], [address]. tel:[phone] Provider: Barbra Wilson MD, [address], [address]. tel:[phone] [facility], [address] [place] [address], [id number], [place] tel:[phone] [facility] FibromyalgiaPrimary generalized (osteo)arthritis Lara Null. [address] [place] [address], [id number], [place]. tel:[phone] Referring Provider: Barbra Wilson MD, [address] [facility] [place] [address] [place] [address], [address]. tel:[phone] [facility], [address] [place] [address], [id number], [place] tel:[phone] [facility] FibromyalgiaPrimary generalized (osteo)arthritis Lara Null. [address] [place], [place], [id number], [place]. tel:[phone] Referring Provider: Barbra Wilson MD, [address], [address]. tel:[phone] [facility], [address] [place], [place], [id number], [place] tel:[phone] [facility] No Information Lloydcalin Chaka. [address] [place], [place], [id number], [place]. tel:[phone] Referring Provider: Barbra Wilson MD, [address], [address]. tel:[phone] Family History Family Member Type Diagnosis Age [...] older Afluria Quad administered Note: patient evie laig e ; Source: Other Provider Influenza, injectable, trivalent, split virus, 4 years and older, Fluvirin administered Note: patient evie jasso ; Source: Other Provider Never had a PPV23 administered Source: New Im munization Record Payers Payer name Insurance type Covered democrat ID Authorization(s ) [employer] No Referral Required CI [id number] Social History Type Description Quantity Date Captured [...] Date Type Action Status Referral Referred To: [facility] Nurse [facility]ractioners Ordered: Referrals: Dermatology. [facility]. Location: [place], [place]. Evaluate and treat Appointment date/timeframe: 08/18/2020 ordered Referral Ordered: Celestino Ramos -[facility] Phys[facility] : Ophthalmology (related to Rheumatoid arthritis w/o rheumatoid factor, multiple sites) ordered Referral Referred To: Celestino Ramos [address] [facility] [address] [place], [phone] Ordered: Referrals: [facility] Physicians : Ophthalmology. Celestino Ramos ordered Appointment Brenda Ramirez BOOKED History Of Present Illness Encounter Date Complaint History Of Present I llness No Information Functional Status Date Functional Assessment No Information Medications Administered Medication Instructions Dosage Effective Dates (start - stop) Sta tus Comments No Information Instructions Date Instruction Additional Informati on I will refer you to Saurabh PUTTIER. Call if problems develop with the feet. Call if problems develop. Call if problems develop.It needs to stop getting worse before it improves. Risks/benefits of medications discussed, handout given on DMARDs If we don't call you about the test resu lts, call us. [facility] handout provided and discussed on Polymyalgia Rheumatica, Rheumatoid Arthritis Call if problems develop. Call if problems develop. Call if problems develop. Physical Examination Exam Findings Details No Information
--- OUTSIDE RECORDS SUMMARY | 2020-10-07 12:54 | CCD | Continuity of Care Document ---
Author Author [facility] Organization [facility] Address Unknown Phone Unavailable Care Team Providers Care Web Programmer Name Role Phone Luis [employer]AL [employer], Lester Unavailable Unavailable Allergies, Adverse Reactions, Alerts Substance Reaction Status Criticality tree nut Active No Information Fish Containing Products Active No Information Penicillins Active No Information aspirin Active No Information Medications Medication Instructions Dosage Effective Dates (start - stop) Sta tus Comments nortriptyline 10 mg capsule take 1 - 3 Capsule by oral route ev david bedtime - Active tramadol 50 mg tablet take 1 - 2 Tablet by oral ro pyramid [place] 4 times every day as needed 50 MG - Active MDD = 6 (SIX) Plaquenil 200 mg tablet TAKE TWO TABLETS BY MOUTH EVERY DAY - Active Lidoderm 5 % topical patch apply 1 [...] multiple sites Diagnosis interpretation (observable entity) Other terminal carman drug therapy Diagnosis interpretation (observable e ntity) [...] joints Problem (finding) - Active Mapped from [facility] Chronic Cond itions table on 11/16/2014 by [...] s Date Provider Providers Copied on Encounter [facility], [address] [place] [address], [id number], tel:[phone] [facility] No Information Luis Batista. [address] [place] [address], [id number], [place]. tel:[phone] [facility], [address] [place] [address], [id number], [place] tel:[phone] [facility] FibromyalgiaRheumatoid arthritis without rheumatoid factor, multiple sites Lara Null. [address] [place] [address], [id number], [place]. tel:[phone] Consulting Provider: Ferny Jiménez MD, [address] [facility], [place], [address]. tel:[phone] Provider: Celestino Hu, [address] [facility] [address], [place], [address]. tel:[phone] Consulting Provider: Annmarie REIS, [address] [facility] [address], [place], [address]. tel:[phone] Provider: Barbra Wilson MD, [address] [facility] [address], [place], [address]. tel:[phone] [facility], [address] [place] [address], [id number], [place] tel:[phone] [facility] No Information Lloydcalin Null. [address] [place] [address], [id number], [place]. tel:[phone] [facility], [address] [place] [address], [id number], [place] tel:[phone] [facility] No Information Lara Null. [address] [place] [address], [id number], [place]. tel:[phone] [facility], [address] [place] [address], [id number], [place] tel:[phone] [facility] Rheumatoid arthritis w/o rheumatoid factor, multiple sitesFibromyalgia Lara Null. [address] [place] [address], [id number], [place]. tel:[phone] Consulting Provider: Ferny Jiménez MD, [address] [place], [address]. tel:[phone] Provider: Celestino Hu, [address] [facility] [address], [place], [address]. tel:[phone] Provider: Barbra Wilson MD, [address] [address], [place], [address]. tel:[phone] [facility], [address] [place] [address], [id number], [place] tel:[phone] [facility] No Information Lara Null. [address] [place] [address], [id number], [place]. tel:[phone] [facility], [address] [place] [address], [id number], [place] tel:[phone] [facility] Rheumatoid arthritis w/o rheumatoid factor, multiple sites Lara negron. [address] [place] [address], [id number], [place]. tel:[phone] Referring Provider: Barbra Wilson MD, [address] [address], [place], [address]. tel:[phone] [facility], [address] [place] [address], [id number], [place] tel:[phone] [facility] Rheumatoid arthritis w/o rheumatoid factor, multiple sitesFibromyalgiaPrimary generalized (osteo)arthritis Lara Null. [address] [place] [address], [id number], [place]. tel:[phone] Consulting Provider: Ferny Jiménez MD, [address] [place] [address], [address]. tel:[phone] Provider: Celestino Hu, [address] [place] [address], [place], [address]. tel:[phone] Provider: Barbra Wilson MD, [address], [address]. tel:[phone] [facility], [address] [place] [address], [id number], [place] tel:[phone] [facility] Rheumatoid arthritis w/o rheumatoid factor, multiple sitesFibromyalgia Lara Null. [address] [place] [address], [id number], [place]. tel:[phone] Consulting Provider: Ferny Jiménez MD, [address] [place] [address], [address]. tel:[phone] Provider: Celestino Hu, [address] [address], [place], [address]. tel:[phone] Provider: Barbra Wilson MD, [address], [address]. [phone] [facility], [address] [place] [address], [id number], [place] tel:[phone] [facility] Rheumatoid arthritis w/o rheumatoid factor, multiple sitesFibromyalgia Lara Null. [address] [place], [place], [id number], [place]. tel:[phone] Consulting Provider: Ferny Jiménez MD, [address] [place] [address], [address]. tel:[phone] Provider: Celestino Hu, [address] [address], [place], [address]. tel:[phone] Provider: Barbra Wilson MD, [address], [address]. tel:[phone] [facility], [address] [place] [address], [id number], [place] tel:[phone] [facility] Rheumatoid arthritis w/o rheumatoid factor of multiple sitesOther [facility] drug therapy Lara Null. [address] [place] [address], [id number], [place]. tel:[phone] Consulting Provider: Ferny Jiménez MD, [address] [place] [address], [address]. tel:[phone] Provider: Celestino Hu, [address] [address], [place], [address]. tel:[phone] Referring Provider: Barbra Wilson MD, [address], [address]. tel:[phone] [facility], [address] [place] [address], [id number], [place] tel:[phone] [facility] FibromyalgiaPolymyalgia rheumatica Lara Null. [address] [place] [address], [id number], [place]. tel:[phone] Consulting Provider: Ferny Jiménez MD, [address] [place], [address]. tel:[phone] Provider: Barbra Wilson MD, [address], [address]. tel:[phone] [facility], [address] [place] [address], [id number], [place] tel:[phone] [facility] Fibromyalgia Lara Null. [address] [place], [place], [id number], [place]. tel:[phone] Consulting Provider: Ferny Jiménez MD, [address] [place], [address]. tel:[phone] Provider: Barbra Wilson MD, [address], [address]. tel:[phone] [facility], [address] [place] [address], [id number], [place] tel:[phone] [facility] Fibromyalgia Lara Null. [address] [place] [address], [id number], [place]. tel:[phone] Consulting Provider: Ferny Jiménez MD, [address] [place], [address]. tel:[phone] Provider: Barbra Wilson MD, [address], [address]. tel:[phone] [facility], [address] [place] [address], [id number], [place] tel:[phone] [facility] Fibromyalgia Lara Null. [address] [place] [address], [id number], [place]. tel:[phone] Consulting Provider: Ferny Jiménez MD, [address] [place], [address]. tel:[phone] Provider: Barbra Wilson MD, [address], [address]. tel:[phone] [facility], [address] [place] [address], [id number], [place] tel:[phone] [facility] FibromyalgiaSpinal stenosis, lumbar region Lara Null. [address] [place] [address], [id number], [place]. tel:[phone] Consulting Provider: Ferny Jiménez MD, [address] [place], [address]. tel:[phone] Provider: Barbra Wilson MD, [address], [address]. tel:[phone] [facility], [address] [place] [address], [id number], [place] tel:[phone] [facility] FibromyalgiaPrimary generalized (osteo)arthritis Lara Null. [address] [place] [address], [id number], [place]. tel:[phone] Referring Provider: Barbra Wilson MD, [address], [address]. tel:[phone] [facility], [address] [place] [address], [id number], [place] tel:[phone] [facility] FibromyalgiaPrimary generalized (osteo)arthritis Lara Null. [address] [place] [address], [id number], [place]. tel:[phone] Referring Provider: Barbra Wilson MD, [address], [address]. tel:[phone] [facility], [address] [place] [address], [id number], [place] tel:[phone] [facility] No Information Lara Null. [address] [place], [place], [id number], . tel:[phone] Referring Provider: Barbra Wilson MD, [address] [address], [place], [address]. tel:[phone] Family History Family Member Type Diagnosis Age [...] Record Payers Payer name Insurance type Covered constitution party ID Authorization(s ) [employer] No Referral Required CI [id number] Social History Type Description Quantity Date Captured Comments Alcohol Use Details Unknown Caffeine Use Details Unknown Tobacco Use Status No Information Smoking Status No Information Sex Female Vital Signs Date / Time: Height Weight BMI Pulse Rate Blood Pressure Temperatu re Respiratory Rate Body Surface Area Head Circumference BMI percentile Pulse Ox In haled Ox No Information Chief Complaint And Reason For Visit No Information Reason For Referral Reason For Referral No Information Plan Of Treatment Date Type Action Status Referral Referred To: [facility] Ordered: Referrals: Dermatology. [facility]. Location: [place], [place]. Evaluate and treat Appointment date/timeframe: 08/18/2020 ordered Referral Ordered: Celestino Ramos -[facility] : Ophthalmology (related to Rheumatoid arthritis w/o rheumatoid factor, multiple sites) ordered Referral Referred To: Celestino Ramos [address] [facility] [address] [place], [phone] Ordered: Referrals: [facility] : [...]
--- OUTSIDE RECORDS SUMMARY | 2020-10-07 12:54 | CCD | Continuity of Care Document ---
Author Author Brenda HAMPTON MD Organization Unknown Address [address] [place] [address] Phone [phone] Care Team Providers Care Offline Cutter Name Role Phone [facility] Cosby M.D. [facility] [phone] Problems Description No Information Available Social History Type Date Description Comments Sex Unknown ETOH Use Never used alcohol Tobacco Use Start: Unknown No Allergies, Adverse Reactions, Alerts Active Allergies Reaction Severity Comments Date Aspirin anaphylactic shoke 0 Penicillin 04/19/2010 Nuts 04/19/2010 Fish-derived Products 2009 Medications Active Medications SIG Qnty Indications Ordering Provide r Date Omeprazole 40mg Capsules DR 1 by mouth every day (gastric ulcer, gerd,difficult swallowing) 30caps Celestino Hampton MD 06/10/2020 Miralax 3350NF Powder 17 g m bid 510gm 564.00 Celestino Hampton MD 04/24/2010 Hydroxychloroquine Sulfate 200mg T ablets 400 mg od Unknown Spironolactone 25mg Tablets 1 2.5 OD Unknown Bupropion Hydrochloride ER (SR) 150mg Tablets ER 12HR 1 tab by mouth daily for first 3 days, t hen increase to twice a day and maintain that dose Unknown 0 Lisinopril 20mg Tablets daily Unknown Hydrochlorothiazide 12.5mg Tablets Unknown Metoprolol Succinate ER 100mg Tablets ER 24HR Unknown Magnesium Oxide 400 240mg Packet Unknown Melatonin 10mg Capsules as ne eded. Unknown Tramadol HCL 50mg Tablets 1-2 every 6 hours as needed for pain after surgery Unknown Nortriptyline HCL 25mg Capsules 30 mg hs Unknown Immunizations Description No Information Available Vital Signs Date Vital Result Comment 08/11/2020 10:01am BP Systolic 150 mmHg BP Diastolic 100 mmHg Height 65 inches 5'5" Weight 210.00 lb BMI (Body Mass Index) 34.9 kg/m2 [place] Body Weight 125 lb Weight 95.256 kg BSA (Body Surface Area) 2.02 m2 03/23/2020 10:07am BP Systolic 128 mmHg BP Diastolic 80 mmHg Height 65 inches 5'5" Weight 216.00 lb BMI (Body Mass Index) 35.9 kg/m2 [place] Body Weight 125 lb Weight 97.978 kg BSA (Body Surface Area) 2.04 m2 Results Test Acquired Date Facility Test Result H/L Range Note Laboratory test finding 06/10/2020 [facility] [address] [place] [address] [phone] Pathology Request For Service (SEE NOTE) 1 1 FINAL DIAGNOSIS A - Gastric ulcer, biopsy: Gastric mucosa with focal superficial erosion and scattered neutrophils. No H. pylori is noted. B - Gastric polyp, polypectomy: Hyperplastic polyp. 06/13/2020 - 1310 CLINICAL DIAGNOSIS Dysphagia, difficulty swallowing 06/10/2020 - 1435 GROSS DIAGNOSIS A - Received in formalin labeled "gastric ulcer biopsy" is a 0.6 x 0.2 cm. aggregate of mucosal fragments. All in one. B - Received in formalin labeled "gastric polyp" is a 0.7 x 0.3 x 0.2 cm. polypoid portion of mucosa as well as a 0.5 x 0.2 x 0.2 cm. portion of normal looking mucosa. All in one. - 06/10/2020 - 1435 Signed Lamar Alamo MD 06/13/2020 1315 Procedures Date Code Description Status 06/10/2020 98662 Dilate Esophagus Unguided Sound Or Bougie Completed 06/10/2020 45595 Endoscopy Upper GI Remove Tumor/ Polyp/Lesion Snare Technique Completed 06/10/2020 34727 Endoscopy Upper GI Biopsy Comple [facility] [employer] Description No Information Available Encounters Type Date Location Provider Dx Diagnosis Office Visit 08/11/2020 10:15a [facility] Celestino Hampton MD K25.9 Gastric ulcer, unsp as acute or chronic, w/o hemor or perf K44.9 Diaphragmatic hernia without obstruction or gangrene K22.4 Dyskinesia of esophagus K21.9 Gastro-esophageal reflux dis ease without esophagitis Office Visit 03/23/2020 10:00a [facility] Celestino dodge MD R13.12 Dysphagia, oropharyngeal phase Assessments Date Code Description Provider 08/11/2020 K25.9 Gastric ulcer, unspe cified as acute or chronic, without hemorrhage or perforation Celestino Hampton MD 08/11/2020 K44.9 Diaphragmatic hernia without obs truction or gangrene Celestino Hampton MD 08/11/2020 K22.4 Dyskinesia of esophagus Celestino curry MD 08/11/2020 K21.9 Gastro-esophageal reflux disease without esophagitis Celestino Hampton MD 06/10/2020 K31.7 Polyp of stomach and duodenum Da jorge Hampton MD 06/10/2020 K25.9 Gastric ulcer, unspe cified as acute or chronic, without hemorrhage or perforation Celestino Hampton MD 06/10/2020 K22.2 Esophageal obstruction Celestino christina MD 03/23/2020 R13.12 Dysphagia, oropharyngeal phase D chantal Hampton MD Plan of Treatment 08/11/2020 - Celestino Hampton MD* K25.9 Gastric ulcer, unspecified as acute or chronic, without hemorrhage or perforation * K44.9 Diaphragmatic hernia without obstruction or gangrene * K22.4 Dyskinesia of esophagus * K21.9 Gastro-esophageal reflux disease without esophagitis * * New Orders:* EGD/Surveillance, Ordered: 08/11/20 * Comments:* dysphagia is occasional and intermittent. 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 this dilations has not really improved symptoms. Taking PPI meds has improved her symptoms.I suspect her sx mainly related to GERD/Dyskinesia and her large HH. * Recommendations:* cont PPI meds indefinitely for now. surgical correction may be an option as well if PPI meds not acceptable fci. risks/benefits discussed We incidentally fouind shallow in ther stomach-path neg. needs repeat EGD to assure healing. Functional Status Description No Information Available Mental Status Description No Information Available Referrals Description No Information Available
--- OUTSIDE RECORDS SUMMARY | 2020-10-07 12:54 | CCD | Continuity of Care Document ---
Author Author Brenda Wilson M.D. Organization Unknown Address [address] [place] [address] Phone [phone] Care Team Providers Care Carton Packaging Machine Operator Name Role Phone Feed [employer] Jimmy Fairly, [employer] AUTM [phone] Duran Downing MD AUTM [phone] Barbra Wilson MD AUTM [phone] Problems Active Problems Provider Date Myalgia & Myositis Unspecified Barbra Wilson M.D. Onset : 07/01/2011 Polycystic ovaries Barbra Wilson M.D. Onset: 1 Osteoarthritis Barbra Wilson M.D. Onset: 1 Brachial neuritis Barbra Wilson M.D. Onset: 1 Diverticular disease of colon Barbra Wilson M.D. Onset: 07/01/2011 Constipation Barbra Wilson M.D. Onset: 1 Abnormal glucose level Barbra Wilson M.D. Onset: 2010 Social History Type Date Description Comments Sex Unknown Tobacco Use Start: Unknown Never Smoked Cigarettes ETOH Use Denies alcohol use Tobacco Use Start: Unknown Patient has never smoked Exercise Type/Frequency Exercises regularly Allergies, Adverse Reactions, Alerts Active Allergies Reaction Severity Comments Date Penicillin ANAPHYLAXIS 2010 Aspirin ANAPHYLAXIS 2010 Nuts ANAPHYLAXIS 09/18/2010 Fish ANAPHYLAXIS 09/18/2010 Tape bandaid ok 09/24/2014 Medications Active Medications SIG Qnty Indications Ordering Provide r Date Omeprazole 40mg Capsules DR 1 by qaelise Wilson M.D. 08/30/2020 Biotin 1000mcg Tablets 1-3/d Barbra Wilson M.D. 08/30/2020 Baclofen 10mg Tablets 1-2 po qhs 60tabs Barbra Wilson M.D. 08/30/2020 Nortriptyline HCL 50mg Capsules take one capsule by mouth every evening at bedtime 30caps Barbra Wilson M.D. 08/30/2020 Tylenol 8 Hour 650mg Tablets ER 2 po bid Barbra Wilson M.D. 12/31/2019 Vitamin D3 Ultra Strength 125mcg (5000 Ut) Capsules 1 by mouth every day Elise Waller 12/31/2019 Bupropion Hydrochloride ER (SR) 150mg Tablets ER 12HR 1 by mouth every day 30tabs Elise Waller 11/03/2019 Spironolactone 25mg Tablets 1/2 by mouth every day 45tabs Barbra Wilson M.D. 11/02/19 20 Albuterol Sulfate HFA 108(90Base) mcg/Act Aerosol inhale 2 puffs by mouth four times daily as needed 17gm Barbra Wilson M.D. 10/21/2019 Hydrochlorothiazide 12.5mg Tablets 1 by mouth every day 90tabs Lucy Islas,CHATO 10/09/2019 Metoprolol Succinate ER 100mg Tablets ER 24HR take 1 tablet at bedtime 90tabs Barbra whitney M.D. 09/23/2019 Lisinopril 20mg Tablets 1 by mouth qhs 90tabs Barbra Wilson M.D. 05/14/2019 Lidoderm 5% Patches apply 1-2 patches 12 hours on and 12 hours off as needed 180units Barbra dolan M.D. 01/23/2018 B Complex Formula 1 Form 1 Tablets qd Barbra Wilson M.D. 11/25/2017 [place] Wheels/5 Adjustment Holes/ -09/16" -09/16" Misc Use as Directed WGT 198LBS HGT 64.5 In 1units M54.16 Barbra Wilson M.D. 06/12/2017 Tramadol HCL 50mg Tablets 1 by mouth qam & twice a day as needed pain 60tabs Flavio Waller 06/12/2017 L-Lysine HCL 1000mg Tablets 1 twice a day by mouth prn Barbra Wilson M.D. 10/30/19 17 Melatonin 10mg Capsules 1 every night at bedtime as needed Barbra Wilson M.D. 2015 Miralax [id number] Packet 17 grams in liquid as directed 2x aday 1Mo Barbra Wilson M.D. 02/2011 [facility] Cervicle Unit [facility] Barbra Wilson M.D. 10/31/2010 Epipen 2-Gus 0.3mg/0 .3ML Solution Auto-Inject as directed as needed 1unblanca Wilson M.D. Calcium/Vitamin D [id number]-Iewq T ablets 1 po qd Unknown Hydroxychloroquine Sulfate 200mg T ablets 2 po qd Barbra Wilson M.D. 00 Medications Administered in Office Medication SIG Qnty Indications Ordering Provider Date Immunization Adminstration,1 Vaccine/Tox oid Injection ANN-MARIE Griffin JR Immunization Adminstration,1 Vaccine/Tox oid Injection Barbra Wilson M.D. 04/2019 Immunizations CPT Code Status Date Vaccine Lot # [id number] Given 06/30/2020 Influenza Vaccin e Quadrivalent Preser/Antibiotic Free Im Use [id number] Given 06/16/2019 Influenza Vaccin e Quadrivalent Preser/Antibiotic Free Im Use [id number] 78143 Given 06/12/2017 Influenza Vaccin e Quadrivalent Preser/Antibiotic Free Im Use [id number] Q2037 Given 07/09/2016 Fluvirin Virus Vaccine 06279 01 Q2037 Given 06/22/2013 Fluvirin Virus Vaccine 34291 01 83564 Given 12/15/2012 PPD [id number] Q2037 Given 07/02/2011 Fluvirin Virus Vaccine Vital Signs Date Vital Result Comment 08/30/2020 3:04pm BP Systolic 136 mmHg RT Arm BP Diastolic 80 mmHg RT Arm Heart Rate 76 /min Height 63.75 inches 5'3.75" Weight 208.50 lb BMI (Body Mass Index) 36.1 kg/m2 06/30/2020 8:32am BP Systolic 128 mmHg BP Diastolic 74 mmHg Heart Rate 76 /min Weight 213.00 lb O2 % BldC Oximetry 97 % Results Test Acquired Date Facility Test Result H/L Range Note Laboratory test finding 08/30/2020 [facility] Spiral Binder: Dr Pierre [place], [place] [id number] [phone] TSH <pending> Basic Metabolic Panel 04/07/2020 [facility] Spiral Binder: Dr i[place] [address] [phone] Glucose 91 mg/dL 74 - 99 1 BUN 15 mg/dL 7 - 18 Creatinine 1.0 mg/dL 0.6 - 1.3 Sodium 144 mEq/L 136 - 145 Potassium 4.9 mEq/L 3.5 - 5.1 Chloride 105 mEq/L 98 - 107 Carbon Dioxide 27 mEq/L 21 - 32 Calcium 9.1 mg/dL 8.5 - 10.1 GFR 57 mL/min Low >60 GFR >= 60 mL/min >60 2 1 100-125 mg/dL PRE-DIABET ES/FASTING >126 mg/dL DIABETES/FASTING 2 CHRONIC KIDNEY DISEASE STAGI NG PER NKF STAGE I & II GFR >= 60 NORMAL TO MILDLY DECREASED STAGE III GFR 30-59 MODERATELY DECREASED STAGE IV GFR 15-29 SEVERELY DECREASED STAGE V GFR <15 VERY LITTLE GFR LEFT ESRD GFR <15 ON PROJECT DEVELOPMENT COORDINATOR Procedures Date Code Description Status 05/12/2020 [id number] Diabetic Foot Exam Completed 09/17/2019 [id number] Mammogram Completed 09/17/2018 [id number] Mammogram Completed 08/26/2015 [id number] Mammogram Completed 06/24/2014 [id number] Mammogram Completed 08/15/2012 [id number] Mammogram Completed 02/14/2012 [id number] Colonoscopy Completed 10/10/2010 [id number] Mammogram Completed Medical Devices Description No Information Available Encounters Type Date Location Provider Dx Diagnosis [facility]2020 [facility] S80.862A Insect bite (nonvenomous), l eft lower leg, initial encounter Z23 Encounter for immunization Office Visit 04/07/2020 8:[facility]a [facility] M06.9 Rheumatoid arthritis, unspec ified M79.7 Fibromyalgia M19.90 Unspecified osteoarthritis, unspecified site I10 Essential (primary) hyperten caitlin R73.09 Other abnormal glucose F34.1 Dysthymic disorder R13.10 Dysphagia, unspecified E66.09 Other obesity due to excess calories Z68.36 Body mass index (BMI) 36.0-3 6.9, adult Assessments Date Code Description Provider 06/30/2020 S80.862A Insect bite (nonveno mous), left lower leg, initial encounter ANN-MARIE Griffin JR 06/30/2020 Z23 Encounter for immunization ANN-MARIE Cope JR 04/07/2020 M06.9 Rheumatoid arthritis, unspecifie d Barbra Wilson M.D. 04/07/2020 M79.7 Fibromyalgia Barbra whitney M.D. 04/07/2020 M19.90 Unspecified osteoarthritis, unsp ecified site Barbra Wilson M.D. 04/07/2020 I10 Essential (primary) hypertension Barbra Wilson M.D. 04/07/2020 R73.09 Other abnormal glucose Barbra Wilson M.D. 04/07/2020 F34.1 Dysthymic disorder Barbra carlson M.D. 04/07/2020 R13.10 Dysphagia, unspecified Barbra Wilson M.D. 04/07/2020 E66.09 Other obesity due to excess cecily kelley Barbra Wilson M.D. 04/07/2020 Z68.36 Body mass index (BMI) 36.0-36.9, adult Barbra Wilson M.D. Plan of Treatment No Information Available Functional Status Description No Information Available Mental Status Description No Information Available Referrals Refer to Reason for Referral Status Appt Date Chaka De Los Santos DPM CONSULT FOR DORSAL FOOT PAIN Closed 05/12/2020 [id number] [facility] [address] [place], [place] [address] [phone]
--- OUTSIDE RECORDS SUMMARY | 2020-10-07 12:54 | CCD | Continuity of Care Document ---
Author Author Brenda Wilson M.D. Organization Unknown Address [address] [place] [address] Phone [phone] Care Team Providers Care Polygraph Operator Name Role Phone Feed [employer] AUTM Duran Downing MD AUTM [phone] Barbra Wilson MD AUTM [phone] Problems Active Problems Provider Date Myalgia & [...] Hour 650mg Tablets ER 2 po bid aBrbra Wilson M.D. 12/31/2019 Vitamin D3 Ultra Strength 125mcg (5000 Ut) Capsules 1 by mouth every day Elise Waller 12/31/2019 Bupropion Hydrochloride ER (SR) 150mg Tablets ER 12HR 1 by mouth every day 30tabs Elise Waller 11/03/2019 Spironolactone 25mg Tablets 1/2 by mouth every day 45tabs Babrra Wilson M.D. 11/02/19 20 Albuterol Sulfate HFA [...] Tablets qd Barbra Wilson M.D. 11/25/2017 [place] Wheels/5 Adjustment Holes/ -09/16" -09/16" Misc Use [...] 02/2011 [facility] Cervicle [facility] Barbra Wilson M.D. 10/31/2010 Epipen 2-Gus 0.3mg/0 .3ML Solution Auto-Inject as directed as needed 1unblanca Wilson M.D. Calcium/Vitamin D [id number]-Uibt T ablets 1 po qd Unknown Hydroxychloroquine Sulfate 200mg T ablets 2 po qd Barbra Wilson M.D. 00 Medications Administered in Office Medication SIG Qnty Indications Ordering Provider Date Immunization Adminstration,1 Vaccine/Tox oid Injection ANN-MARIE Griffin JR Immunization Adminstration,1 Vaccine/Tox oid Injection Barbra Wilson M.D. 04/2019 Immunizations CPT Code Status Date Vaccine Lot # 82057 Given 06/30/2020 Influenza Vaccin e Quadrivalent Preser/Antibiotic Free Im Use [id number] 84453 Given 06/16/2019 Influenza Vaccin e Quadrivalent Preser/Antibiotic Free Im Use 249496 47231 Given 06/12/2017 Influenza Vaccin e Quadrivalent Preser/Antibiotic Free Im Use [id number] Q2037 Given 07/09/2016 Fluvirin Virus Vaccine 06714 01 Q2037 Given 06/22/2013 Fluvirin Virus Vaccine 03252 01 03078 Given 12/15/2012 PPD [id number] Q2037 Given 07/02/2011 Fluvirin Virus Vaccine Vital [...] Date Facility Test Result H/L Range Note Complete Blood Count 08/30/2020 [facility] Parts Washer: [place] [address] [phone] WBC 12.4 x10*3/UL High 4.1 - 10.9 1 RBC 4.62 x10*6/UL 4.20 - 6.30 Hemoglobin 12.6 g/dL 12.0 - 18.0 Hematocrit 37.2 % 37.0 - 51.0 MCV 80.4 fL 80.0 - 97.0 MCH 27.4 pg 26.0 - 32.0 MCHC 34.1 g/dL 31.0 - 38.0 RDW 13.1 % 11.6 - 13.7 PLT 422 x10*3/UL 140 - 440 MPV 7.1 FL Low 7.8 - 11.0 Lymph % 16.4 % 10.0 - 58.5 Mid % 5.0 % 1.7 - 9.3 Neut % 78.6 % 37.0 - 92.0 Lymph # 2.1 x10*3/UL 0.6 - 4.1 Mid # 0.7 x10*3/UL High 0.1 - 0.6 Neut # 10.1 x10*3/UL High 2.0 - 7.8 Comprehensive Chem Profile 08/30/2020 [facility] Parts Washer: [place] [address] [phone] Glucose 88 mg/dL 74 - 99 2 BUN 16 mg/dL 7 - 18 Creatinine 1.0 mg/dL 0.6 - 1.3 Sodium 134 mEq/L Low 136 - 145 Potassium 3.8 mEq/L 3.5 - 5.1 Chloride 96 mEq/L Low 98 - 107 Carbon Dioxide 31 mEq/L 21 - 32 Calcium 9.0 mg/dL 8.5 - 10.1 Alk. Phosphatase 84 mg/dL 46 - 116 Total Bilirubin 0.2 mg/dL 0.2 - 1.0 Ast (Sgot) 18 U/L 15 - 37 Alt (SGPT) 22 U/L 12 - 78 Albumin 3.5 g/dL 3.4 - 5.0 Total Protein 7.8 g/dL 6.4 - 8.2 A/G Ratio 0.81 CALC Low 1.00 - 1.90 GFR 57 mL/min Low >60 GFR >= 60 mL/min >60 3 Laboratory test finding 08/30/2020 [place] [facility] Parts Washer: [place] [address] [phone] Thyroid Stimulating Hormone 1.64 uIU/mL 0.3 6 - 3.74 Basic Metabolic Panel 04/07/2020 [facility] Parts Washer: Dr Pierre [place] [address] [phone] Glucose 91 mg/dL 74 - 99 4 BUN 15 mg/dL 7 - 18 Creatinine 1.0 mg/dL 0.6 - 1.3 Sodium 144 mEq/L 136 - 145 Potassium 4.9 mEq/L 3.5 - 5.1 Chloride 105 mEq/L 98 - 107 Carbon Dioxide 27 mEq/L 21 - 32 Calcium 9.1 mg/dL 8.5 - 10.1 GFR 57 mL/min Low >60 GFR >= 60 mL/min >60 5 1 NOTE: RESULT VERIFIED. 2 100-125 mg/dL PRE-DIABET ES/FASTING >126 mg/dL DIABETES/FASTING 3 CHRONIC KIDNEY DISEASE STAGI NG PER NKF STAGE I & II GFR >= 60 NORMAL TO MILDLY DECREASED STAGE III GFR 30-59 MODERATELY DECREASED STAGE IV GFR 15-29 SEVERELY DECREASED STAGE V GFR <15 VERY LITTLE GFR LEFT ESRD GFR <15 ON BIOINFORMATICIAN 4 100-125 mg/dL PRE-DIABET ES/FASTING >126 mg/dL DIABETES/FASTING 5 CHRONIC KIDNEY DISEASE STAGI NG PER NKF STAGE I & II GFR >= 60 NORMAL TO MILDLY DECREASED STAGE III GFR 30-59 MODERATELY DECREASED STAGE IV GFR 15-29 SEVERELY DECREASED STAGE V GFR <15 VERY LITTLE GFR LEFT ESRD GFR <15 ON BIOINFORMATICIAN Procedures Date Code Description Status 05/12/2020 [id number] Diabetic Foot Exam Completed 09/17/2019 [id number] Mammogram Completed 09/17/2018 [id number] Mammogram Completed 08/26/2015 [id number] Mammogram Completed 06/24/2014 [id number] Mammogram Completed 08/15/2012 [id number] Mammogram Completed 02/14/2012 [id number] Colonoscopy Completed 10/10/2010 [id number] Mammogram Completed Medical Devices Description No Information Available Encounters Type Date Location Provider Dx Diagnosis Office Visit 06/30/2020 8:40a [facility] S80.862A Insect bite (nonvenomous), l eft lower leg, initial encounter Z23 Encounter for immunization Office Visit 04/07/2020 8:45a [facility] M.[facility] M06.9 Rheumatoid [...] adult Barbra Wilson M.D. Plan of Treatment Future Appointment(s):* 10/20/2020 8:30 am - Barbra Wilson M.D. at [facility] 06/30/2020 - Alonzo Pittman JR, PA* S80.862A Insect bite (nonvenomous), left lower leg, initial encounter * Z23 Encounter for immunization Functional Status Description No Information Available Mental Status Description No Information Available Referrals Refer to Reason for Referral Status Appt Date Chaka De Los Santos DPElise CONSULT FOR DORSAL FOOT PAIN Closed 05/12/2020 [id number] [address] [place] [address] [phone]
--- OUTSIDE RECORDS SUMMARY | 2020-10-07 12:54 | CCD | Continuity of Care Document ---
Author Author Brenda RIVERA MD Organization Unknown Address [address] [place] [address] Phone [phone] Problems Active Problems Provider Date Excessive and [...] Indications Ordering Provide r Date Vitamin D 96377Huss Capsules weekly Ronna Rivera MD 03/07/2012 Lisinopril [...] Available Procedures Date Code Description Status 09/17/2018 [id number] Mammogram Completed 08/26/2015 [id number] Mammogram Completed Medical Devices Description No Information Available Encounters Type Date Location Provider Dx Diagnosis Office Visit 08/26/2020 9:00a [facility] wirer Ronna Rivera MD Z0 1.419 Encntr for financial reporting accountant exam (general) (routine) w/o abn findings Z12.4 [...] 8:45 am - Ronna Rivera MD at [facility] inside wirer 08/26/2020 - Ronna Rivera MD* Z01.419 Encounter [...]
--- OUTSIDE RECORDS SUMMARY | 2020-10-07 12:55 | CCD ---
Author Author [facility] Organization [facility] Address Unknown Phone Unavailable Care Team Providers Care Scratcher Tender Name Role Phone Boyd Hu, Brunilda Triado MD, FACS Unavailable Unavailable Nix Hu, Brunilda Tirado MD, FACS Unavailable Unavailable Nix Hu, Brunilda Tirado MD, FACS Unavailable Unavailable Nix Hu, Brunilda Tirado MD, FACS Unavailable Unavailable Nix Hu, Brunilda Tirado MD, FACS Unavailable Unavailable Nix Hu, Brunilda Tirado MD, FACS Unavailable Unavailable Nix Hu, Brunilda Tirado MD, FACS Unavailable Unavailable Nix Hu, Brunilda Tirado MD, FACS Unavailable Unavailable Nix Hu, Brunilda Tirado MD, FACS Unavailable Unavailable Nix Hu, Brunilda Tirado MD, FACS Unavailable Unavailable Nix Hu, Brunilda Tirado MD, FACS Unavailable Unavailable Nix Hu, Brunilda Tirado MD, FACS Unavailable Unavailable Nix Hu, Brunilda Tirado MD, FACS Unavailable Unavailable Nix Hu, Brunilda Tirado MD, FACS Unavailable Unavailable Nix Hu, Brunilda Tirado MD, FACS Unavailable Unavailable Nix Hu, Brunilda Tirado MD, FACS Unavailable Unavailable Nix Hu, Brunilda iTrado MD, FACS Unavailable Unavailable Nix Hu, Brunilda Tirado MD, FACS Unavailable Unavailable Nix Hu, Brunilda Tirado MD, FACS Unavailable Unavailable Nix Fritz, Brunilda Tirado MD, FACS Unavailable Unavailable Nix Hu, Brunilda Tirado MD, FACS Unavailable Unavailable Nix Hu, Brunilda Tirado MD, FACS Unavailable Unavailable Nix Hu, Brunilda Tirado MD, FACS Unavailable Unavailable Nix Hu, Brunilda Tirado MD, FACS Unavailable Unavailable Nix Hu, Brunlida Tirado MD, FACS Unavailable Unavailable Nix Hu, Brunilda Tirado MD, FACS Unavailable Unavailable Nix Hu, Brunilda Tirado MD, FACS Unavailable Unavailable Nix Hu, Brunilda Tirado MD, FACS Unavailable Unavailable Nix Hu, Brunilda Tirado MD, FACS Unavailable Unavailable Nix Hu, Brunilda Tirado MD, FACS Unavailable Unavailable Nix Hu, Brunilda Tirado MD, FACS Unavailable Unavailable Nix Hu, Brunilda Tirado MD, FACS Unavailable Unavailable Nix Hu, Brunilda Tirado MD, FACS Unavailable Unavailable Nix Hu, Brunilda Tirado MD, FACS Unavailable Unavailable Jayce Bermudez MD Unavailable Unavailable Jayce Bermudez MD Unavailable Unavailable Jayce Bermudez MD Unavailable Unavailable Jayce Bermudez MD Unavailable Unavailable Jayce Bermudez MD Unavailable Unavailable Jayce Bermudez MD Unavailable Unavailable Jayce Bermudez MD Unavailable Unavailable Jayce Bermudez MD Unavailable Unavailable Jayce Bermudez MD Unavailable Unavailable Jayce Bermudez MD Unavailable Unavailable Jayce Bermudez MD Unavailable Unavailable Jayce Bermudez MD Unavailable Unavailable Jayce Bermudez MD Unavailable Unavailable Jayce Bermudez MD Unavailable Unavailable Jayce Bermudez MD Unavailable Unavailable Jayce Bermudez MD Unavailable Unavailable Jayce Bermudez MD Unavailable Unavailable Jayce Bermudez MD Unavailable Unavailable Jayce Bermudez MD Unavailable Unavailable Jayce Bermudez MD Unavailable Unavailable Jayce Bermudez MD Unavailable Unavailable Jayce Bermudez MD Unavailable Unavailable Jayce Bermudez MD Unavailable Unavailable Jayce Bermudez MD Unavailable Unavailable Jayce Bermudez MD Unavailable Unavailable Jayce Bermudez MD Unavailable Unavailable Jayce Bermudez MD Unavailable Unavailable Jayce Bermudez MD Unavailable Unavailable Jayce Bermudez MD Unavailable Unavailable Jayce Bermudez MD Unavailable Unavailable Jayce Bermudez MD Unavailable Unavailable Jayce Bermudez MD Unavailable Unavailable Jayce Bermudez MD Unavailable Unavailable Jayce Bermudez MD Unavailable Unavailable Jayce Bermudez MD Unavailable Unavailable Jayce Bermudez MD Unavailable Unavailable Jayce Bermudez MD Unavailable Unavailable Jayce Bermudez MD Unavailable Unavailable Jayce Bermudez MD Unavailable Unavailable Jayce Bermudez MD Unavailable Unavailable Jayce Bermudez MD Unavailable Unavailable Jayce Bermudez MD Unavailable Unavailable Jayce Bermudez MD Unavailable Unavailable Jayce Bermudez MD Unavailable Unavailable Jayce Bermudez MD Unavailable Unavailable Jayce Bermudez MD Unavailable Unavailable Jayce Bermudez MD Unavailable Unavailable Jayce Bermudez MD Unavailable Unavailable Jayce Bermudez MD Unavailable Unavailable Jayce Bermudez MD Unavailable Unavailable Jayce Bermudez MD Unavailable Unavailable Jayce Bermudez MD Unavailable Unavailable Jayce Bermudez MD Unavailable Unavailable Jayce Bermudez MD Unavailable Unavailable Jayce Bermudez MD Unavailable Unavailable Jayce Bermudez MD Unavailable Unavailable Jayce Bermudez MD Unavailable Unavailable Jayce Bermudez MD Unavailable Unavailable Jayce Bermudez MD Unavailable Unavailable Jayce Bermudez MD Unavailable Unavailable Jayce Bermudez MD Unavailable Unavailable Jayce Bermudez MD Unavailable Unavailable Jayce Bermudez MD Unavailable Unavailable Jayce Bermudez MD Unavailable Unavailable Jayce Bermudez MD Unavailable Unavailable Jayce Bermudez MD Unavailable Unavailable Jayce Bermudez MD Unavailable Unavailable Jayce Bermudez MD Unavailable Unavailable Jayce Bermudez MD Unavailable Unavailable Jayce Bermudez MD Unavailable Unavailable Jayce Bermudez MD Unavailable Unavailable Jayce Bermudez MD Unavailable Unavailable Jayce Bermudez MD Unavailable Unavailable Jayce Bermudez MD Unavailable Unavailable Jayce Bermudez MD Unavailable Unavailable Jayce Bermudez MD Unavailable Unavailable Jayce Bermudez MD Unavailable Unavailable Jayce Bermudez MD Unavailable Unavailable Jayce Bermudez MD Unavailable Unavailable Jayce Bermudez MD Unavailable Unavailable Jayce Bermudez MD Unavailable Unavailable Jayce Bermudez MD Unavailable Unavailable Jayce Bermudez MD Unavailable Unavailable Jayce Bermudez MD Unavailable Unavailable Jayce Bermudez MD Unavailable Unavailable Jayce Bermudez MD Unavailable Unavailable Jayce Bermudez MD Unavailable Unavailable YAJAIRA MURPHY MD Unavailable Unavailable YAJAIRA MURPHY MD Unavailable Unavailable YAJAIRA MURPHY MD Unavailable Unavailable YAJAIRA MURPHY MD Unavailable Unavailable YAJAIRA MURPHY MD Unavailable Unavailable YAJAIRA MURPHY MD Unavailable Unavailable YAJAIRA MURPHY MD Unavailable Unavailable YAJAIRA MURPHY MD Unavailable Unavailable YAJAIRA MURPHY MD Unavailable Unavailable YAJAIRA MURPHY MD Unavailable Unavailable YAJAIRA MURPHY MD Unavailable Unavailable YAJAIRA MURPHY MD Unavailable Unavailable YAJAIRA MURPHY MD Unavailable Unavailable YAJAIRA MURPHY MD Unavailable Unavailable YAJAIRA MURPHY MD Unavailable Unavailable YAJAIRA MURPHY MD Unavailable Unavailable YAJAIRA MURPHY MD Unavailable Unavailable YAJAIRA MURPHY MD Unavailable Unavailable KHAIRALLAH, RAMZI MD Unavailable Unavailable KHAIRALLAH, RAMZI MD Unavailable Unavailable KHAIRALLAH, RAMZI MD Unavailable Unavailable KHAIRALLAH, RAMZI MD Unavailable Unavailable KHAIRALLAH, RAMZI MD Unavailable Unavailable KHAIRALLAH, RAMZI MD Unavailable Unavailable KHAIRALLAH, RAMZI MD Unavailable Unavailable KHAIRALLAH, RAMZI MD Unavailable Unavailable KHAIRALLAH, RAMZI MD Unavailable Unavailable KHAIRALLAH, RAMZI MD Unavailable Unavailable KHAIRALLAH, RAMZI MD Unavailable Unavailable KHAIRALLAH, RAMZI MD Unavailable Unavailable KHAIRALLAH, RAMZI MD Unavailable Unavailable KHAIRALLAH, RAMZI MD Unavailable Unavailable KHAIRALLAH, RAMZI MD Unavailable Unavailable KHAIRALLAH, RAMZI MD Unavailable Unavailable KHAIRALLAH, RAMZI MD Unavailable Unavailable KHAIRALLAH, RAMZI MD Unavailable Unavailable KHAIRALLAH, RAMZI MD Unavailable Unavailable KHAIRALLAH, RAMZI MD Unavailable Unavailable KHAIRALLAH, RAMZI MD Unavailable Unavailable KHAIRALLAH, RAMZI MD Unavailable Unavailable KHAIRALLAH, RAMZI MD Unavailable Unavailable KHAIRALLAH, RAMZI MD Unavailable Unavailable KHAIRALLAH, RAMZI MD Unavailable Unavailable KHAIRALLAH, RAMZI MD Unavailable Unavailable KHAIRALLAH, RAMZI MD Unavailable Unavailable KHAIRALLAH, RAMZI MD Unavailable Unavailable KHAIRALLAH, RAMZI MD Unavailable Unavailable KHAIRALLAH, RAMZI MD Unavailable Unavailable KHAIRALLAH, RAMZI MD Unavailable Unavailable KHAIRALLAH, RAMZI MD Unavailable Unavailable KHAIRALLAH, RAMZI MD Unavailable Unavailable KHAIRALLAH, RAMZI MD Unavailable Unavailable KHAIRALLAH, RAMZI MD Unavailable Unavailable KHAIRALLAH, RAMZI MD Unavailable Unavailable KHAIRALLAH, RAMZI MD Unavailable Unavailable KHAIRALLAH, RAMZI MD Unavailable Unavailable KHAIRALLAH, RAMZI MD Unavailable Unavailable KHAIRALLAH, RAMZI MD Unavailable Unavailable KHAIRALLAH, RAMZI MD Unavailable Unavailable KHAIRALLAH, RAMZI MD Unavailable Unavailable KHAIRALLAH, RAMZI MD Unavailable Unavailable KHAIRALLAH, RAMZI MD Unavailable Unavailable KHAIRALLAH, RAMZI MD Unavailable Unavailable KHAIRALLAH, RAMZI MD Unavailable Unavailable KHAIRALLAH, RAMZI MD Unavailable Unavailable KHAIRALLAH, RAMZI MD Unavailable Unavailable KHAIRALLAH, RAMZI MD Unavailable Unavailable KHAIRALLAH, RAMZI MD Unavailable Unavailable KHAIRALLAH, RAMZI MD Unavailable Unavailable KHAIRALLAH, RAMZI MD Unavailable Unavailable YAJAIRA MURPHY MD Unavailable Unavailable YAJAIRA MURPHY MD Unavailable Unavailable YAJAIRA MURPHY MD Unavailable Unavailable YAJAIRA MURPHY MD Unavailable Unavailable YAJAIRA MURPHY MD Unavailable Unavailable YAJAIRA MURPHY MD Unavailable Unavailable YAJAIRA MURPHY MD Unavailable Unavailable YAJAIRA MURPHY MD Unavailable Unavailable YAJAIRA MURPHY MD Unavailable Unavailable YAJAIRA MURPHY MD Unavailable Unavailable YAJAIRA MURPHY MD Unavailable Unavailable YAJAIRA MURPHY MD Unavailable Unavailable YAJAIRA MURPHY MD Unavailable Unavailable YAJAIRA MURPHY MD Unavailable Unavailable YAJAIRA MURPHY MD Unavailable Unavailable YAJAIRA MURPHY MD Unavailable Unavailable Steve Wilson MD Unavailable Unavailable Steve Wilson MD Unavailable Unavailable Steve Wilson MD Unavailable Unavailable Steve Wilson MD Unavailable Unavailable Steve Wilson MD Unavailable Unavailable Steve Wilson MD Unavailable Unavailable Steve Wilson MD Unavailable Unavailable Stvee Wilson MD Unavailable Unavailable Steve Wilson MD Unavailable Unavailable Steve Wilson MD Unavailable Unavailable Steve Wilson MD Unavailable Unavailable Steve Wilson MD Unavailable Unavailable Steve Wilson MD Unavailable Unavailable Steve Wilson MD Unavailable Unavailable Steve Wilson MD Unavailable Unavailable Steve Wilson MD Unavailable Unavailable Steve Wilson MD Unavailable Unavailable Steve Wilson MD Unavailable Unavailable Steve Wilson MD Unavailable Unavailable Steve Wilson MD Unavailable Unavailable Steve Wilson MD Unavailable Unavailable Steve Wilson MD Unavailable Unavailable Steve Wilson MD Unavailable Unavailable Steve Wilson MD Unavailable Unavailable Steve Wilson MD Unavailable Unavailable Steve Wilson MD Unavailable Unavailable Steve Wilson MD Unavailable Unavailable Steve Wilson MD Unavailable Unavailable Steve Wilson MD Unavailable Unavailable Steve Wislon MD Unavailable Unavailable Steve Wilson MD Unavailable Unavailable Steve Wilson MD Unavailable Unavailable Steve Wilson MD Unavailable Unavailable SteveSteve MD Unavailable Unavailable SteveSteve MD Unavailable Unavailable SteveSteve MD Unavailable Unavailable SteveSteve MD Unavailable Unavailable SteveSteve MD Unavailable Unavailable SteveSteve MD Unavailable Unavailable SteveSteve MD Unavailable Unavailable SteveSteve dolan MD Unavailable Unavailable SteveSteve MD Unavailable Unavailable Steve Wilson MD Unavailable Unavailable SteveSteve MD Unavailable Unavailable SteveSteve MD Unavailable Unavailable SteveSteve MD Unavailable Unavailable SteveSteve MD Unavailable Unavailable SteveSteve MD Unavailable Unavailable SteveSteve MD Unavailable Unavailable SteveSteve MD Unavailable Unavailable SteveSteve MD Unavailable Unavailable SteveSteve MD Unavailable Unavailable SteveSteve MD Unavailable Unavailable Steve Wilson MD Unavailable Unavailable Steve Wilson MD Unavailable Unavailable Steve Wilson MD Unavailable Unavailable Steve Wilson MD Unavailable Unavailable Steve Wilson MD Unavailable Unavailable Steve Wilson MD Unavailable Unavailable Steve Wilson MD Unavailable Unavailable Steve Wilson MD Unavailable Unavailable Steve Wilson MD Unavailable Unavailable Steve Wilson MD Unavailable Unavailable Steve Wilson MD Unavailable Unavailable Steve Wilson MD Unavailable Unavailable Steve iWlson MD Unavailable Unavailable Steve Wilson MD Unavailable Unavailable Steve Wilson MD Unavailable Unavailable Steve Wilson MD Unavailable Unavailable Steve Wilson MD Unavailable Unavailable Steve Wilson MD Unavailable Unavailable Steve Wilson MD Unavailable Unavailable Steve Wilson MD Unavailable Unavailable Steve Wilson MD Unavailable Unavailable Steve Wilson MD Unavailable Unavailable Steve Wilson MD Unavailable Unavailable Steve Wilson MD Unavailable Unavailable Steve Wilson MD Unavailable Unavailable Wall SURFACING TECHNICIAN, A Lester Unavailable [phone] Wall SURFACING TECHNICIAN, A Lester Unavailable [phone] Wall SURFACING TECHNICIAN, A Lester Unavailable [phone] Wall SURFACING TECHNICIAN, A Lester Unavailable [phone] Wall SURFACING TECHNICIAN, A Lester Unavailable [phone] Willie RIVERA MD Unavailable Unavailable RIVERA, L HANK CARDENAS Unavailable Unavailable RIVERA, L HANK CARDENAS Unavailable Unavailable RIVERA, L HANK CARDENAS Unavailable Unavailable RIVERA, L HANK CARDENAS Unavailable Unavailable RIVERA, L HANK CARDENAS Unavailable Unavailable RIVERA, L HANK CARDENAS Unavailable Unavailable RIVERA, L HANK CARDENAS Unavailable Unavailable RIVERA, L HANK CARDENAS Unavailable Unavailable RIVERA, L HANK CARDENAS Unavailable Unavailable RIVERA, L HANK CARDENAS Unavailable Unavailable RIVERA, L HANK CARDENAS Unavailable Unavailable RIVERA, L HANK CARDENAS Unavailable Unavailable RIVERA, L HANK CARDENAS Unavailable Unavailable RIVERA, L HANK CAREDNAS Unavailable Unavailable RIVERA, L HANK CARDENAS Unavailable Unavailable RIVERA, L HANK CARDENAS Unavailable Unavailable RIVERA, L HANK CARDENAS Unavailable Unavailable RIVERA, L HANK CARDENAS Unavailable Unavailable RIVERA, L HANK CARDENAS Unavailable Unavailable RIVERA, L HANK CARDENAS Unavailable Unavailable RIVERA, L HANK CARDENAS Unavailable Unavailable RIVERA, L HANK CARDENAS Unavailable Unavailable RIVERA, L HANK CARDENAS Unavailable Unavailable RIVERA, L HANK CARDENAS Unavailable Unavailable RIVERA, L AHNK CARDENAS Unavailable Unavailable RIVERA, L HANK CARDENAS Unavailable Unavailable RIVERA, L HANK CARDENAS Unavailable Unavailable RIVERA, L HANK CARDENAS Unavailable Unavailable RIVERA, L HANK CARDENAS Unavailable Unavailable RIVERA, L HANK CARDENAS Unavailable Unavailable RIVERA, L HANK CARDENAS Unavailable Unavailable RIVERA, L HANK CARDENAS Unavailable Unavailable RIVERA, L HANK CARDENAS Unavailable Unavailable RIVERA, L HANK CARDENAS Unavailable Unavailable RIVERA, L HANK CARDENAS Unavailable Unavailable RIVERA, L HANK CARDENAS Unavailable Unavailable RIVERA, L HANK CARDENAS Unavailable Unavailable RIVERA, L HANK CARDENAS Unavailable Unavailable RIVERA, L HANK CARDENAS Unavailable Unavailable RIVERA, L HNAK CARDENAS Unavailable Unavailable RIVERA, L HANK CARDENAS Unavailable Unavailable RIVERA, L HANK CARDENAS Unavailable Unavailable PICKERAL JR, J ALIYAH PA-C Unavailable Unavailable PICKERAL JR, J ALIYAH PA-C Unavailable Unavailable PICKERAL JR, J ALIYAH PA-C Unavailable Unavailable PICKERAL JR, J ALIYAH PA-C Unavailable Unavailable PICKERAL JR, J ALIYAH PA-C Unavailable Unavailable PICKERAL JR, J ALIYAH PA-C Unavailable Unavailable PICKERAL JR, J ALIYAH PA-C Unavailable Unavailable PICKERAL JR, J ALIYAH PA-C Unavailable Unavailable PICKERAL JR, J ALIYAH PA-C Unavailable Unavailable PICKERAL JR, J ALIYAH PA-C Unavailable Unavailable PICKERAL JR, J ALIYAH PA-C Unavailable Unavailable PICKERAL JR, J ALIYAH PA-C Unavailable Unavailable PICKERAL JR, J ALIYAH PA-C Unavailable Unavailable PICKERAL JR, J ALIYAH PA-C Unavailable Unavailable PICKERAL JR, J ALIYAH PA-C Unavailable Unavailable PICKERAL JR, J ALIYAH PA-C Unavailable Unavailable PICKERAL JR, J ALIYAH PA-C Unavailable Unavailable PICKERAL JR, J ALIYAH PA-C Unavailable Unavailable PICKERAL JR, J ALIYAH PA-C Unavailable Unavailable PICKERAL JR, J ALIYAH PA-C Unavailable Unavailable REINDL, REYNA CARDENAS Unavailable Unavailable REINDL, REYNA CARDENAS Unavailable Unavailable REINDL, REYNA CARDENAS Unavailable Unavailable REINDL, REYNA CARDENAS Unavailable Unavailable REINDL, REYNA CARDENAS Unavailable Unavailable REINDL, REYNA CARDENAS Unavailable Unavailable REINDL, REYNA CARDENAS Unavailable Unavailable REINDL, REYNA CARDENAS Unavailable Unavailable REINDL, REYNA CARDENAS Unavailable Unavailable REINDL, REYNA CARDENAS Unavailable Unavailable REINDL, REYNA CARDENAS Unavailable Unavailable REINDL, REYNA CARDENAS Unavailable Unavailable REINDL, REYNA CARDENAS Unavailable Unavailable REINDL, REYNA CARDENAS Unavailable Unavailable REINDL, REYNA CARDENAS Unavailable Unavailable REINDL, REYNA CARDENAS Unavailable Unavailable REINDL, REYNA CARDENAS Unavailable Unavailable REINDL, REYNA CARDENAS Unavailable Unavailable REINDL, REYNA CARDENAS Unavailable Unavailable REINDL, REYNA CARDENAS Unavailable Unavailable REINDL, REYNA CARDENAS Unavailable Unavailable REINDL, REYNA CARDENAS Unavailable Unavailable REINDL, REYNA CARDENAS Unavailable Unavailable REINDL, REYNA CARDENAS Unavailable Unavailable REINDL, REYNA CARDENAS Unavailable Unavailable REINDL, REYNA CARDENAS Unavailable Unavailable REINDL, REYNA CARDENAS Unavailable Unavailable REINDL, REYNA CARDENAS Unavailable Unavailable REINDL, REYNA CARDENAS Unavailable Unavailable REINDL, REYNA CARDENAS Unavailable Unavailable REINDL, REYNA ACRDENAS Unavailable Unavailable REINDL, REYNA CARDENAS Unavailable Unavailable REINDL, REYNA CARDENAS Unavailable Unavailable REINDL, REYNA CARDENAS Unavailable Unavailable REINDL, REYNA CARDENAS Unavailable Unavailable REINDL, REYNA CARDENAS Unavailable Unavailable REINDL, REYNA CARDENAS Unavailable Unavailable REINDL, REYNA CARDENAS Unavailable Unavailable REINDL, REYNA CARDENAS Unavailable Unavailable REINDL, REYNA CARDENAS Unavailable Unavailable REINDL, REYNA CARDENAS Unavailable Unavailable REINDL, REYNA CARDENAS Unavailable Unavailable REINDL, REYNA CARDENAS Unavailable Unavailable REINDL, REYNA CARDENAS Unavailable Unavailable Re-disclosure Warning The records that you are about to access may contain information from federally-assisted alcohol or drug abuse programs. If such information is present, then the following federally mandated warning applies: This information has been disclosed to you from records protected by federal confidentiality rules (42 CFR part 2). The federal rules prohibit you from making any further disclosure of this information unless further disclosure is expressly permitted by the written consent of the person to whom it pertains or as otherwise permitted by 42 CFR part 2. A general authorization for the release of medical or other information is NOT sufficient for this purpose. The Federal rules restrict any use of the information to criminally investigate or prosecute any alcohol or drug abuse patient.The records that you are about to access may contain highly sensitive health information, the redisclosure of which is protected by Article 27-F of the [facility] Public Health law. If you continue you may have access to information: Regarding HIV / AIDS; Provided by facilities licensed or operated by the [facility] Office of Mental Health; or Provided by the [facility] Office for People With Developmental Disabilities. If such information is present, then the following [facility] mandated warning applies: This information has been disclosed to you from confidential records which are protected by state law. State law prohibits you from making any further disclosure of this information without the specific written consent of the person to whom it pertains, or as otherwise permitted by law. Any unauthorized further disclosure in violation of state law may result in a fine or long term sentence or both. A general authorization for the release of medical or other information is NOT sufficient authorization for further disc losure. Family History Family Member Name Family Member Gender Family Member Status Date o f Status Description Data Source(s) Unknown Unknown Problem [facility] ([facility] [employer] [facility]) Unknown Male Problem (finding) 11/11/2012 12:00:00 AM EST [facility] ([facility]) Unknown Female Problem [facility] ([facility]) Encounters Encounter Providers Location Date Indications Data Source(s ) Attender: YAJAIRA MURPHY [facility] 09/20/2020 07:08:00 PM EST - 09/20/2020 07:08:00 PM EST [facility] ( [facility]) Attender: Chaka Bermudez MD [facility] 09/08/2020 10:47:00 AM EST - 09/08/2020 10:47:00 AM EST [facility] ([facility]) Attender: Chaka Bermudez MD [facility] 09/08/2020 10:46:00 AM EST - 09/08/2020 10:46:00 AM EST [facility] ([facility]) Outpatient Attender: HANK RIVERA MD [facility] 08:00:00 AM EST [facility] ([facility]) Attender: Lester KINNEYP [facility] 08/12/2020 11:34:00 AM EST - 08/12/2020 11:34:00 AM EST [facility] ([facility]) Outpatient Attender: REYNA [facility] 08/11/2020 09:15:00 AM EST [facility] ([facility] Attender: Chaka Bermudez MD [facility] 07/26/2020 09:40:00 AM EST - 07/26/2020 09:40:00 AM EST Rheumatoid arthritis without rheumatoid factor, multiple sitesFibromyalgia [facility] ([facility]) Rheumatoid arthritis without rheumatoid factor, multiple sites Fibromyalgia Attender: Chaka Bermudez MD [facility] 07/20/2020 10:32:00 AM EST - 07/20/2020 10:32:00 AM EST [facility] ([facility]) Outpatient Attender: ALIYAH Hines 1 08:40:00 AM EDT [facility] ([facility] ) Attender: Chaka Bermudez MD [facility] 05/24/2020 08:54:00 AM EDT - 05/24/2020 08:54:00 AM EDT [facility] ([facility]) Attender: Chaka Bermudez MD [facility] 04/28/2020 02:46:00 PM EDT - 04/28/2020 02:46:00 PM EDT [facility] ([facility]) OutpatientOFFICE/OUTPATIENT VISIT, EST Attender: Chaka Bermudez MD [facility] 04/26/2020 09:40:00 AM EDT - 04/26/2020 09:40:00 AM ED T FibromyalgiaRheumatoid arthritis w/o rheumatoid factor, multiple sites [facility] ([facility]) Fibromyalgia Rheumatoid arthritis w/o rheumatoid fact or, multiple sites Outpatient Attender: Barbra Hines 08:45:00 AM EDT [facility] ([facility] ) Outpatient Attender: REYNA Cook/Lv[facility] 03/23/2020 10:00:00 AM EDT [facility] ([facility], ) Attender: Chaka Bermudez MD [facility] 02/25/2020 08:29:00 AM EDT - 02/25/2020 08:29:00 AM EDT [facility] ([facility]) Attender: [facility] 01/19/2020 08:05:00 AM EDT - 01/19/2020 08:05:00 AM EDT [facility] ([facility]) PHONE E/M BY PHYS 5-10 MIN Attender: Chaka Bermudez MD [facility] 01/18/2020 11:02:00 AM EDT - 01/18/2020 11:02:00 AM ED T Rheumatoid arthritis w/o rheumatoid factor, multiple sites [facility] ([facility]) Rheumatoid arthritis w/o rheumatoid fact or, multiple sites Outpatient Att[facility]: [facility] 08:00:00 AM EDT [facility] ([facility] ) 11/16/2019 12:45:00 PM EDT - 020 12:45:00 PM EDT [facility] ([facility]) Attender: Chaka Bermudez MD [facility] 11/09/2019 01:12:00 PM EST - 11/09/2019 01:12:00 PM EST [facility] ([facility]) Outpatient<[id number] ID="[id number]">[id number] Month follow up with testing</td><td>Reyna Ramos MD, FACS</td><td>Reyna Ramos MD [facility]</td><td>10/21/2019</td><td><content ID="[email or web address]">Rheumatoid Arthritis Rf Negative</content>, <content ID="encounterDiagnosisID0-1">Mcc Use of Other Medications</content>, <content ID="encounterDiagnosisID0- 2">Retinopathy Hypertensive Both Eyes</content>, <content ID="encounterDiagnosisID0-3">Essential Hypertension</content>, <content ID="encounterDiagnosisID0-4">Dry Eye Syndrome Both Eyes</content></td> Attender: Reyna Hu MD, FACS Reyan Ramos MD [facility] 10/21/2019 09:01:00 AM EST - 10/21/2019 10:34:00 AM EST Dry Eye Syndrome Both EyesEssential HypertensionRetinopathy Hypertensive Both EyesLong Term Use of Other MedicationsRheumatoid Arthritis Rf Negative JESSICA (Reyna Hu MD [facility]) Dry Eye Syndrome Both Eyes Essential Hypertension Retinopathy Hypertensive Both Eyes Mcc Use of Other Medications Rheumatoid Arthritis Rf Negative Outpatient Attender: Barbra Hines 07:30:00 AM EST [facility] ([facility] ) OutpatientOFFICE/OUTPATIENT VISIT, EST Attender: Chaka Bermudez MD [facility] 10/12/2019 11:40:00 AM EST - 10/12/2019 11:40:00 AM ES T Primary generalized (osteo)arthritisFibromyalgiaRheumatoid arthritis w/o rheumatoid factor, multiple sites [facility] ([facility]) Primary generalized (osteo)arthritis Fibromyalgia Rheumatoid arthritis w/o rheumatoid fact or, multiple sites Outpatient Attender: Barbra Hines 07:45:00 AM EST [facility] ([facility] ) Attender: Chaka Bermudez MD [facility] 08/27/2019 09:22:00 AM EST - 08/27/2019 09:22:00 AM EST [facility] ([facility]) Attender: Chaka Bermudez MD [facility] 08/24/2019 11:03:00 AM EST - 08/24/2019 11:03:00 AM EST [facility] ([facility]) Outpatient Attender: HANK [facility] rn transplant 01:45:00 PM EST [facility] ([facility]) Attender: Chaka Bermudez MD [facility] 08/21/2019 08:28:00 AM EST - 08/21/2019 08:28:00 AM EST [facility] ([facility]) Immunizations Vaccine Date Status Description Data Source(s) Influenza, injectable, MDCK, preservative free, oneyda valent 06/30/2020 08:48:00 AM EDT completed [facility]) IIV3. This is one of two codes replacing CVX 15, which is being retired. 06/08/2020 12:00:00 AM EDT completed Historical Influenza Vaccine [facility] ([facility]) Note: approx ; Source: Other Provider Medications Medication Brand Name Start Date Product Form Dose Route Admi nistrative Instructions Pharmacy Instructions Status Indications Reaction Description Data Source(s) 20 mg 09/27/2020 12:00:00 AM EST tablet 30 TAKE ONE TABLET BY MOUTH AT BEDTIME TAKE ONE TABLET BY MOUTH AT BEDTIME SOLD: 09/28/2020 [facility] 24 HR Bupropion Hydrochloride 150 MG Extended Release Oral T ablet BUPROPION HCL 09/23/2020 12:00:00 AM EST tablet extended release 24 hr 30 TAKE ONE TABLET BY MOUTH EVERY DAY TAKE ONE TABLET BY MOUTH EVERY DAY SOLD: 09/26/2020 [facility] Hydroxychloroquine Sulfate 200 MG Oral Tablet HYDROXYCHLOROQ UINE SULFATE 09/12/2020 12:00:00 AM EST tablet 60 TAKE TWO TABLE TS BY MOUTH EVERY DAY TAKE TWO TABLETS BY MOUTH EVERY DAY SOLD: 09/14/2020 [facility] 100 mg 09/12/2020 12:00:00 AM EST tablet extended release 24 hr 30 TAKE ONE TABLET BY MOUTH AT BEDTIME TAKE ONE TABLET BY MOUTH AT BEDTIME SOLD: 09/14/2020 [facility] Hydroxychloroquine Sulfate 200 MG Oral T ablet [Plaquenil] Plaquenil 200 mg tablet Plaquenil 200 mg tablet 09/08/2020 12:00:00 AM EST active hydroxychloroquine sulfate 200 MG Oral Tablet [Plaquenil] [facility] ([facility]) DX: M06.09 Nortriptyline 50 MG Oral Capsule NORTRIPTYLINE HCL 08/31/2020 12 :00:00 AM EST capsule 30 TAKE 1 CAPSULE BY MOUTH EVERY EV ENING AT BEDTIME TAKE 1 CAPSULE BY MOUTH EVERY EVENING AT BEDTIME SOLD: 09/05/2020 [facility] 10 mg 08/31/2020 12:00:00 AM EST tablet 60 TAKE 1-2 TABLETS BY MOUTH AT BEDTIME TAKE 1-2 TABLETS BY MOUTH AT BEDTIME SOLD: 09/05/2020 [facility] Nortriptyline 50 MG Oral Capsule Nortriptyline HCL 08/30/2020 12:00 :00 AM EST ORAL active [facility] ([facility]) Baclofen 10 MG Oral Tablet Baclofen 08/30/2020 12:00:00 AM EST ORAL active [facility] ([facility]) Biotin 1 MG Oral Tablet Biotin 08/30/2020 12:00:00 AM EST active [facility] ([facility]) Omeprazole 40 MG Delayed Release Oral Capsule Omeprazole 08/30/2020 12:00:00 AM EST active [facility] ([facility]) 0.05 % 08/29/2020 12:00:00 AM EST ointment 30 APPLY TO LOWER BACK SPARINGLY TWICE A DAY FOR 2 WEEKS THEN NEEDED FOR FLARES APPLY TO LOWER BACK SPARINGLY TWICE A DAY FOR 2 WEEKS THEN NEEDED FOR FLARES SOLD: 08/30/2020 [facility] 2 % 08/18/2020 12:00:00 AM EST ointment 22 APPLY TO LEFT ANKLE SPARINGLY TWO TIMES A DAY FOR 10 DAYS APPLY TO LEFT ANKLE SPARINGLY TWO TIMES A DAY FOR 10 DAYS SOLD: 08/18/2020 [facility] doxycycline hyclate 100 MG Oral Tablet DOXYCYCLINE HYCLATE 1 10/19/2019 12:00:00 AM EST tablet 28 TAKE ONE TABLET BY MOUTH TWI CE A DAY FOR 14 DAYS TAKE ONE TABLET BY MOUTH TWICE A DAY FOR 14 DAYS SOLD: 08/18/2020 [facility] 10 mg 07/26/2020 12:00:00 AM EST capsule 60 TAKE 1-3 CAPSULES BY MOUTH ONCE DAILY AT BEDTIME TAKE 1-3 CAPSULES BY MOUTH ONCE DAILY AT BEDTIME SOLD: 08/20/2020 [facility] 10 mg 07/26/2020 12:00:00 AM EST capsule 60 TAKE 1-3 CAPSULES BY MOUTH ONCE DAILY AT BEDTIME TAKE 1-3 CAPSULES BY MOUTH ONCE DAILY AT BEDTIME SOLD: 07/28/2020 [facility] Nortriptyline 10 MG Oral Capsule nortriptyline 10 mg c apsule nortriptyline 10 mg capsule 07/26/2020 12:00:00 AM EST active take 1 - 3 Capsule by oral route every bedtime [facility] ([facility]) Cyclobenzaprine hydrochloride 10 MG Oral Tablet CYCLOBENZAPR INE HCL 07/26/2020 12:00:00 AM EST tablet 120 TAKE 3-4 TABLETS BY MOUTH ONCE DAILY AT BEDTIME TAKE 3-4 TABLETS BY MOUTH ONCE DAILY AT BEDTIME SOLD: 07/28/2020 [facility] tramadol hydrochloride 50 MG Oral Tablet tramadol 50 m g tablet tramadol 50 mg tablet 07/20/2020 12:00:00 AM EST 1 {tbl} ORAL active take 1 - 2 Tablet by oral route 4 times every day as needed [facility] ([facility]) MDD = 6 (SIX) 50 mg 07/20/2020 12:00:00 AM EST tablet 60 TAKE 1-2 TABLETS BY MOUTH FOUR TIMES A DAY NEEDED MAXIMUM DAILY DOSE = 6 TABLETS TAKE 1-2 TABLETS BY MOUTH FOUR TIMES A DAY NEEDED MAXIMUM DAILY DOSE = 6 TABLETS SOLD: 07/24/2020 [facility] Immunization Adminstration,1 Vaccine/Toxoid 06/30/2020 12:00 :00 AM EDT completed [facility] ([facility]) Medication administered onsite 40 mg 06/10/2020 12:00:00 AM EDT capsule,delayed release (DR/EC) 30 TAKE ONE CAPSULE BY MOUTH EVERY DAY TAKE ONE CAPSULE BY MOUTH EVERY DAY SOLD: 06/15/2020 [facility] 40 mg 06/10/2020 12:00:00 AM EDT capsule,delayed release (DR/EC) 30 TAKE ONE CAPSULE BY MOUTH EVERY DAY TAKE ONE CAPSULE BY MOUTH EVERY DAY SOLD: 09/14/2020 [facility] 40 mg 06/10/2020 12:00:00 AM EDT capsule,delayed release (DR/EC) 30 TAKE ONE CAPSULE BY MOUTH EVERY DAY TAKE ONE CAPSULE BY MOUTH EVERY DAY SOLD: 08/20/2020 [facility] Omeprazole 40 MG Delayed Release Oral Capsule Omeprazole 06/10/2020 12:00:00 AM EDT ORAL active [facility] ([facility]) 40 mg 06/10/2020 12:00:00 AM EDT capsule,delayed release (DR/EC) 30 TAKE ONE CAPSULE BY MOUTH EVERY DAY TAKE ONE CAPSULE BY MOUTH EVERY DAY SOLD: 07/24/2020 [facility] Hydroxychloroquine Sulfate 200 MG Oral Tablet HYDROXYCHLOROQ UINE SULFATE 05/24/2020 12:00:00 AM EDT tablet 60 TAKE TWO TABLE TS BY MOUTH EVERY DAY TAKE TWO TABLETS BY MOUTH EVERY DAY SOLD: 05/25/2020 [facility] Hydroxychloroquine Sulfate 200 MG Oral Tablet HYDROXYCHLOROQ UINE SULFATE 05/24/2020 12:00:00 AM EDT tablet 60 TAKE TWO TABLE TS BY MOUTH EVERY DAY TAKE TWO TABLETS BY MOUTH EVERY DAY SOLD: 06/25/2020 [facility] Hydroxychloroquine Sulfate 200 MG Oral T ablet [Plaquenil] Plaquenil 200 mg tablet Plaquenil 200 mg tablet 05/24/2020 12:00:00 AM EDT completed hydroxychloroquine sulfate 200 MG Oral Tablet [Plaquen il] [facility] Hydroxychloroquine Sulfate 200 MG Oral Tablet HYDROXYCHLOROQ UINE SULFATE 05/24/2020 12:00:00 AM EDT tablet 60 TAKE TWO TABLE TS BY MOUTH EVERY DAY TAKE TWO TABLETS BY MOUTH EVERY DAY SOLD: 07/24/2020 [facility] Hydroxychloroquine Sulfate 200 MG Oral Tablet HYDROXYCHLOROQ UINE SULFATE 05/24/2020 12:00:00 AM EDT tablet 60 TAKE TWO TABLE TS BY MOUTH EVERY DAY TAKE TWO TABLETS BY MOUTH EVERY DAY SOLD: 08/20/2020 [facility] 50 mg 04/29/2020 12:00:00 AM EDT tablet 60 TAKE 1-2 TABLETS BY MOUTH FOUR TIMES A DAY NEEDED MAXIMUM DAILY DOSE = 6 TAKE 1-2 TABLETS BY MOUTH FOUR TIMES A DAY NEEDED MAXIMUM DAILY DOSE = 6 SOLD: 05/08/2020 [facility] tramadol hydrochloride 50 MG Oral Tablet tramadol 50 m g tablet tramadol 50 mg tablet 04/28/2020 12:00:00 AM EDT 1 {tbl} ORAL active take 1 - 2 Tablet by oral route 4 times every day as needed [facility]) MDD = 6 (SIX) tramadol hydrochloride 50 MG Oral Tablet tramadol 50 m g tablet tramadol 50 mg tablet 04/26/2020 12:00:00 AM EDT 1 {tbl} ORAL completed take 1 - 2 Tablet by oral route 4 times every day as needed [facility]) MDD = 6 (SIX) 100 mg 04/26/2020 12:00:00 AM EDT tablet extended release 60 TAKE 1-2 TABLETS BY MOUTH EVERY NIGHT AT BEDTIME TAKE 1-2 TABLETS BY MOUTH EVERY NIGHT AT BEDTIME SOLD: 04/26/2020 [facility] 12 HR Orphenadrine Citrate 100 MG Extend ed Release Oral Tablet orphenadrine citrate ER 100 mg tablet,extended release orphenadrine citrate ER 100 mg tablet,extended release 04/26/2020 12:00:00 AM EDT ORAL active take 1 - 2 Tablet by oral route every bedtime [facility] ([facility]) 100 mg 04/26/2020 12:00:00 AM EDT tablet extended release 60 TAKE 1-2 TABLETS BY MOUTH EVERY NIGHT AT BEDTIME TAKE 1-2 TABLETS BY MOUTH EVERY NIGHT AT BEDTIME SOLD: 05/25/2020 [facility] 150 mg 04/25/2020 12:00:00 AM EDT tablet extended release 12 hr 30 TAKE ONE TABLET BY MOUTH EVERY DAY TAKE ONE TABLET BY MOUTH EVERY DAY SOLD: 04/26/2020 [facility] 150 mg 04/25/2020 12:00:00 AM EDT tablet extended release 12 hr 30 TAKE ONE TABLET BY MOUTH EVERY DAY TAKE ONE TABLET BY MOUTH EVERY DAY SOLD: 06/25/2020 [facility] 150 mg 04/25/2020 12:00:00 AM EDT tablet extended release 12 hr 30 TAKE ONE TABLET BY MOUTH EVERY DAY TAKE ONE TABLET BY MOUTH EVERY DAY SOLD: 08/20/2020 [facility] 150 mg 04/25/2020 12:00:00 AM EDT tablet extended release 12 hr 30 TAKE ONE TABLET BY MOUTH EVERY DAY TAKE ONE TABLET BY MOUTH EVERY DAY SOLD: 05/25/2020 [facility] 150 mg 04/25/2020 12:00:00 AM EDT tablet extended release 12 hr 30 TAKE ONE TABLET BY MOUTH EVERY DAY TAKE ONE TABLET BY MOUTH EVERY DAY SOLD: 07/24/2020 [facility] 25 mg 04/15/2020 12:00:00 AM EDT tablet 15 TAKE ONE-HALF TABLET BY MOUTH EVERY DAY TAKE ONE-HALF TABLET BY MOUTH EVERY DAY SOLD: 06/25/2020 [facility] 25 mg 04/15/2020 12:00:00 AM EDT tablet 15 TAKE ONE-HALF TABLET BY MOUTH EVERY DAY TAKE ONE-HALF TABLET BY MOUTH EVERY DAY SOLD: 08/20/2020 [facility] 25 mg 04/15/2020 12:00:00 AM EDT tablet 15 TAKE ONE-HALF TABLET BY MOUTH EVERY DAY TAKE ONE-HALF TABLET BY MOUTH EVERY DAY SOLD: 04/21/2020 [facility] 25 mg 04/15/2020 12:00:00 AM EDT tablet 15 TAKE ONE-HALF TABLET BY MOUTH EVERY DAY TAKE ONE-HALF TABLET BY MOUTH EVERY DAY SOLD: 09/14/2020 [facility] 25 mg 04/15/2020 12:00:00 AM EDT tablet 15 TAKE ONE-HALF TABLET BY MOUTH EVERY DAY TAKE ONE-HALF TABLET BY MOUTH EVERY DAY SOLD: 05/25/2020 [facility] 25 mg 04/15/2020 12:00:00 AM EDT tablet 15 TAKE ONE-HALF TABLET BY MOUTH EVERY DAY TAKE ONE-HALF TABLET BY MOUTH EVERY DAY SOLD: 07/24/2020 [facility] 5 % 04/03/2020 12:00:00 AM EDT adhesive patch,medicate d 60 APPLY 1-2 PATCHES 12 HOURS ON 12 HOURS OFF NEEDED APPLY 1-2 PATCHES 12 HOURS ON 12 HOURS O FF NEEDED SOLD: 2020 [facility] 5 % 04/03/2020 12:00:00 AM EDT adhesive patch,medicate d 60 APPLY 1-2 PATCHES 12 HOURS ON 12 HOURS OFF NEEDED APPLY 1-2 PATCHES 12 HOURS ON 12 HOURS O FF NEEDED SOLD: 04/06/2020 [facility] 100 mg 03/17/2020 12:00:00 AM EDT tablet extended release 24 hr 30 TAKE ONE TABLET BY MOUTH AT BEDTIME TAKE ONE TABLET BY MOUTH AT BEDTIME SOLD: 05/25/2020 [facility] 100 mg 03/17/2020 12:00:00 AM EDT tablet extended release 24 hr 30 TAKE ONE TABLET BY MOUTH AT BEDTIME TAKE ONE TABLET BY MOUTH AT BEDTIME SOLD: 04/26/2020 [facility] 100 mg 03/17/2020 12:00:00 AM EDT tablet extended release 24 hr 30 TAKE ONE TABLET BY MOUTH AT BEDTIME TAKE ONE TABLET BY MOUTH AT BEDTIME SOLD: 03/27/2020 [facility] 100 mg 03/17/2020 12:00:00 AM EDT tablet extended release 24 hr 30 TAKE ONE TABLET BY MOUTH AT BEDTIME TAKE ONE TABLET BY MOUTH AT BEDTIME SOLD: 08/20/2020 [facility] 100 mg 03/17/2020 12:00:00 AM EDT tablet extended release 24 hr 30 TAKE ONE TABLET BY MOUTH AT BEDTIME TAKE ONE TABLET BY MOUTH AT BEDTIME SOLD: 07/24/2020 [facility] 100 mg 03/17/2020 12:00:00 AM EDT tablet extended release 24 hr 30 TAKE ONE TABLET BY MOUTH AT BEDTIME TAKE ONE TABLET BY MOUTH AT BEDTIME SOLD: 06/25/2020 [facility] Lidocaine Hydrochloride 0.05 MG/MG Trans dermal Patch [Lidoderm] [facility] 5 % topical patch [facility] 5 % topical patch 02/25/2020 12:00:00 AM EDT 1.00 patch TRANSDERMAL active lidocaine 0.05 MG/MG Medicated Patch [Lidoderm] [facility] ([facility]) 5 % 02/25/2020 12:00:00 AM EDT adhesive patch,medicate d 30 APPLY ONE PATCH TO SKIN ONCE DAILY. MAY WEAR UP TO 12 HOURS APPLY ONE PATCH TO SKIN ONCE DAILY. MAY WEAR UP TO 12 HOURS SOLD: 03/27/2020 [facility] 5 % 02/25/2020 12:00:00 AM EDT adhesive patch,medicate d 30 APPLY ONE PATCH TO SKIN ONCE DAILY. MAY WEAR UP TO 12 HOURS APPLY ONE PATCH TO SKIN ONCE DAILY. MAY WEAR UP TO 12 HOURS SOLD: 02/27/2020 [facility] Cyclobenzaprine hydrochloride 10 MG Oral Tablet CYCLOBENZAPR INE HCL 01/29/2020 12:00:00 AM EDT tablet 120 TAKE 3-4 TABLETS BY MOUTH AT BEDTIME TAKE 3-4 TABLETS BY MOUTH AT BEDTIME SOLD: 06/25/2020 [facility] Cyclobenzaprine hydrochloride 10 MG Oral Tablet CYCLOBENZAPR INE HCL 01/29/2020 12:00:00 AM EDT tablet 120 TAKE 3-4 TABLETS BY MOUTH AT BEDTIME TAKE 3-4 TABLETS BY MOUTH AT BEDTIME SOLD: 04/06/2020 [facility] Cyclobenzaprine hydrochloride 10 MG Oral Tablet CYCLOBENZAPR INE HCL 01/29/2020 12:00:00 AM EDT tablet 120 TAKE 3-4 TABLETS BY MOUTH AT BEDTIME TAKE 3-4 TABLETS BY MOUTH AT BEDTIME SOLD: 03/08/2020 [facility] 10 mg 01/29/2020 12:00:00 AM EDT tablet 120 TAKE 3-4 TABLETS BY MOUTH AT BEDTIME TAKE 3-4 TABLETS BY MOUTH AT BEDTIME SOLD: 02/07/2020 [facility] Hydroxychloroquine Sulfate 200 MG Oral Tablet HYDROXYCHLOROQ UINE SULFATE 01/24/2020 12:00:00 AM EDT tablet 60 TAKE TWO TABLE TS BY MOUTH EVERY DAY TAKE TWO TABLETS BY MOUTH EVERY DAY SOLD: 01/27/2020 [facility] Hydroxychloroquine Sulfate 200 MG Oral Tablet HYDROXYCHLOROQ UINE SULFATE 01/24/2020 12:00:00 AM EDT tablet 60 TAKE TWO TABLE TS BY MOUTH EVERY DAY TAKE TWO TABLETS BY MOUTH EVERY DAY SOLD: 02/21/2020 [facility] Hydroxychloroquine Sulfate 200 MG Oral Tablet HYDROXYCHLOROQ UINE SULFATE 01/24/2020 12:00:00 AM EDT tablet 60 TAKE TWO TABLE TS BY MOUTH EVERY DAY TAKE TWO TABLETS BY MOUTH EVERY DAY SOLD: 03/27/2020 [facility] Hydroxychloroquine Sulfate 200 MG Oral Tablet HYDROXYCHLOROQ UINE SULFATE 01/24/2020 12:00:00 AM EDT tablet 60 TAKE TWO TABLE TS BY MOUTH EVERY DAY TAKE TWO TABLETS BY MOUTH EVERY DAY SOLD: 04/26/2020 [facility] Hydroxychloroquine Sulfate 200 MG Oral T ablet [Plaquenil] Plaquenil 200 mg tablet Plaquenil 200 mg tablet 01/19/2020 12:00:00 AM EDT completed hydroxychloroquine sulfate 200 MG Oral Tablet [Plaquen il] [facility] tramadol hydrochloride 50 MG Oral Tablet TRAMADOL HCL 01/19/2020 12:00:00 AM EDT tablet 60 TAKE 1-2 TABLETS BY MOUTH FOUR TIMES A DAY NEEDED MAXIMUM DAILY DOSE = 6 TAKE 1-2 TABLETS BY MOUTH FOUR TIMES A D AY NEEDED MAXIMUM DAILY DOSE = 6 SOLD: 01/27/2020 [facility] Cyclobenzaprine hydrochloride 10 MG Oral Tablet cyclob enzaprine 10 mg tablet cyclobenzaprine 10 mg tablet 01/19/2020 12:00:00 AM EDT ORAL active take 3 - 4 Tablet by oral route every bedtime [facility] tramadol hydrochloride 50 MG Oral Tablet tramadol 50 m g tablet tramadol 50 mg tablet 01/19/2020 12:00:00 AM EDT 1 {tbl} ORAL completed take 1 - 2 Tablet by oral route 4 times every day as needed [facility] ([facility]) MDD = 6 (SIX) 20 mg 01/01/2020 12:00:00 AM EDT tablet 30 TAKE ONE TABLET BY MOUTH AT BEDTIME TAKE ONE TABLET BY MOUTH AT BEDTIME SOLD: 2020 [facility] 20 mg 01/01/2020 12:00:00 AM EDT tablet 30 TAKE ONE TABLET BY MOUTH AT BEDTIME TAKE ONE TABLET BY MOUTH AT BEDTIME SOLD: 03/27/2020 [facility] 20 mg 01/01/2020 12:00:00 AM EDT tablet 30 TAKE ONE TABLET BY MOUTH AT BEDTIME TAKE ONE TABLET BY MOUTH AT BEDTIME SOLD: 01/27/2020 [facility] 20 mg 01/01/2020 12:00:00 AM EDT tablet 30 TAKE ONE TABLET BY MOUTH AT BEDTIME TAKE ONE TABLET BY MOUTH AT BEDTIME SOLD: 04/21/2020 [facility] 20 mg 01/01/2020 12:00:00 AM EDT tablet 30 TAKE ONE TABLET BY MOUTH AT BEDTIME TAKE ONE TABLET BY MOUTH AT BEDTIME SOLD: 06/15/2020 [facility] 20 mg 01/01/2020 12:00:00 AM EDT tablet 30 TAKE ONE TABLET BY MOUTH AT BEDTIME TAKE ONE TABLET BY MOUTH AT BEDTIME SOLD: 01/01/2020 [facility] [id number] 0.3 ML Epinephrine 1 MG/ML Auto-Injector EPINEPHRI NE 12/31/2019 12:00:00 AM EDT auto-injector 2 INJECT DIRECTED NE EDED INJECT DIRECTED NEEDED SOLD: 01/01/2020 [facility] Cholecalciferol 5000 UNT Oral Capsule Vitamin D3 Ultra Stren gth 12/31/2019 12:00:00 AM EDT ORAL active M EDENT ([facility]) 8 HR Acetaminophen 650 MG Extended Release Oral Tablet [Tyle nol] Tylenol 8 Hour 12/31/2019 12:00:00 AM EDT ORAL active [facility] ([facility]) 50 mg 11/10/2019 12:00:00 AM EST tablet 60 TAKE 1-2 TABLETS BY MOUTH FOUR TIMES A DAY NEEDED MAXIMUM DAILY DOSE = 6 TAKE 1-2 TABLETS BY MOUTH FOUR TIMES A DAY NEEDED MAXIMUM DAILY DOSE = 6 SOLD: 11/14/2019 [facility] 20 mg 11/09/2019 12:00:00 AM EST tablet 30 TAKE ONE TABLET BY MOUTH EVERY DAY TAKE ONE TABLET BY MOUTH EVERY DAY SOLD: 11/14/2019 [facility] 20 mg 11/09/2019 12:00:00 AM EST tablet 30 TAKE ONE TABLET BY MOUTH EVERY DAY TAKE ONE TABLET BY MOUTH EVERY DAY SOLD: 02/21/2020 [facility] 20 mg 11/09/2019 12:00:00 AM EST tablet 30 TAKE ONE TABLET BY MOUTH EVERY DAY TAKE ONE TABLET BY MOUTH EVERY DAY SOLD: 12/10/2019 [facility] 20 mg 11/09/2019 12:00:00 AM EST tablet 30 TAKE ONE TABLET BY MOUTH EVERY DAY TAKE ONE TABLET BY MOUTH EVERY DAY SOLD: 07/10/2020 [facility] tramadol hydrochloride 50 MG Oral Tablet tramadol 50 m g tablet tramadol 50 mg tablet 11/09/2019 12:00:00 AM EST 1 {tbl} ORAL completed take 1 - 2 Tablet by oral route 4 times every day as needed [facility] ([facility]) MDD = 6 (SIX) 20 mg 11/09/2019 12:00:00 AM EST tablet 30 TAKE ONE TABLET BY MOUTH EVERY DAY TAKE ONE TABLET BY MOUTH EVERY DAY SOLD: 08/27/2020 [facility] 20 mg 11/09/2019 12:00:00 AM EST tablet 30 TAKE ONE TABLET BY MOUTH EVERY DAY TAKE ONE TABLET BY MOUTH EVERY DAY SOLD: 05/25/2020 [facility] 150 mg 11/04/2019 12:00:00 AM EST tablet sustained-releas e 12 hr 30 TAKE ONE TABLET BY MOUTH EVERY DAY TAKE ONE TABLET BY MOUTH EVERY DAY SOLD: 11/08/2019 [facility] 150 mg 11/04/2019 12:00:00 AM EST tablet sustained-releas e 12 hr 30 TAKE ONE TABLET BY MOUTH EVERY DAY TAKE ONE TABLET BY MOUTH EVERY DAY SOLD: 01/27/2020 [facility] 150 mg 11/04/2019 12:00:00 AM EST tablet sustained-releas e 12 hr 30 TAKE ONE TABLET BY MOUTH EVERY DAY TAKE ONE TABLET BY MOUTH EVERY DAY SOLD: 03/27/2020 [facility] 150 mg 11/04/2019 12:00:00 AM EST tablet sustained-releas e 12 hr 30 TAKE ONE TABLET BY MOUTH EVERY DAY TAKE ONE TABLET BY MOUTH EVERY DAY SOLD: 01/01/2020 [facility] 150 mg 11/04/2019 12:00:00 AM EST tablet sustained-releas e 12 hr 30 TAKE ONE TABLET BY MOUTH EVERY DAY TAKE ONE TABLET BY MOUTH EVERY DAY SOLD: 12/04/2019 [facility] 150 mg 11/04/2019 12:00:00 AM EST tablet sustained-releas e 12 hr 30 TAKE ONE TABLET BY MOUTH EVERY DAY TAKE ONE TABLET BY MOUTH EVERY DAY SOLD: 02/21/2020 [facility] Bupropion Hydrochloride ER (SR) Bupropion Hydrochloride ER ( SR) 11/03/2019 12:00:00 AM EST ORAL active M DORA ([facility]) 25 mg 11/03/2019 12:00:00 AM EST tablet 15 TAKE ONE-HALF TABLET BY MOUTH EVERY DAY TAKE ONE-HALF TABLET BY MOUTH EVERY DAY SOLD: 02/21/2020 [facility] 25 mg 11/03/2019 12:00:00 AM EST tablet 15 TAKE ONE-HALF TABLET BY MOUTH EVERY DAY TAKE ONE-HALF TABLET BY MOUTH EVERY DAY SOLD: 01/27/2020 [facility] 25 mg 11/03/2019 12:00:00 AM EST tablet 15 TAKE ONE-HALF TABLET BY MOUTH EVERY DAY TAKE ONE-HALF TABLET BY MOUTH EVERY DAY SOLD: 12/01/2019 [facility] 25 mg 11/03/2019 12:00:00 AM EST tablet 15 TAKE ONE-HALF TABLET BY MOUTH EVERY DAY TAKE ONE-HALF TABLET BY MOUTH EVERY DAY SOLD: 03/27/2020 [facility] 25 mg 11/03/2019 12:00:00 AM EST tablet 15 TAKE ONE-HALF TABLET BY MOUTH EVERY DAY TAKE ONE-HALF TABLET BY MOUTH EVERY DAY SOLD: 11/04/2019 [facility] 25 mg 11/03/2019 12:00:00 AM EST tablet 15 TAKE ONE-HALF TABLET BY MOUTH EVERY DAY TAKE ONE-HALF TABLET BY MOUTH EVERY DAY SOLD: 01/01/2020 [facility] Spironolactone 25 MG Oral Tablet Spironolactone 11/02/2019 12:00:00 A M EST ORAL active [facility] ([facility]) 90 mcg/actuation 10/21/2019 12:00:00 AM EST HFA aerosol inha ler 8 INHALE TWO PUFFS BY MOUTH FOUR TIMES A DAY NEEDED INHALE TWO PUFFS BY MOUTH FOUR TIMES A DAY NEEDED SOLD: 10/22/2019 [facility] 60 ACTUAT Albuterol 0.09 MG/ACTUAT Metered Dose Inhaler Albu terol Sulfate HFA 10/21/2019 12:00:00 AM EST ORAL active [facility] ([facility]) 90 mcg/actuation 10/21/2019 12:00:00 AM EST HFA aerosol inha ler 8 INHALE TWO PUFFS BY MOUTH FOUR TIMES A DAY NEEDED INHALE TWO PUFFS BY MOUTH FOUR TIMES A DAY NEEDED SOLD: 01/27/2020 [facility] Cyclobenzaprine hydrochloride 10 MG Oral Tablet cyclob enzaprine 10 mg tablet cyclobenzaprine 10 mg tablet 10/12/2019 12:00:00 AM EST ORAL completed take 3 - 4 Tablet by oral route every b edtime [facility] 10 mg 10/12/2019 12:00:00 AM EST tablet 120 TAKE 3-4 TABLETS BY MOUTH AT BEDTIME TAKE 3-4 TABLETS BY MOUTH AT BEDTIME SOLD: 10/17/2019 [facility] Hydroxychloroquine Sulfate 200 MG Oral T ablet [Plaquenil] Plaquenil 200 mg tablet Plaquenil 200 mg tablet 10/12/2019 12:00:00 AM EST completed Hydroxychloroquine Sulfate 200 MG Oral Tablet [Plaquen il] [facility] ([facility]) 10 mg 10/12/2019 12:00:00 AM EST tablet 120 TAKE 3-4 TABLETS BY MOUTH AT BEDTIME TAKE 3-4 TABLETS BY MOUTH AT BEDTIME SOLD: 12/10/2019 [facility] 200 mg 10/12/2019 12:00:00 AM EST tablet 60 TAKE TWO TABLETS BY MOUTH EVERY DAY TAKE TWO TABLETS BY MOUTH EVERY DAY SOLD: 11/14/2019 [facility] 200 mg 10/12/2019 12:00:00 AM EST tablet 60 TAKE TWO TABLETS BY MOUTH EVERY DAY TAKE TWO TABLETS BY MOUTH EVERY DAY SOLD: 10/17/2019 [facility] 10 mg 10/12/2019 12:00:00 AM EST tablet 120 TAKE 3-4 TABLETS BY MOUTH AT BEDTIME TAKE 3-4 TABLETS BY MOUTH AT BEDTIME SOLD: 01/09/2020 [facility] 200 mg 10/12/2019 12:00:00 AM EST tablet 60 TAKE TWO TABLETS BY MOUTH EVERY DAY TAKE TWO TABLETS BY MOUTH EVERY DAY SOLD: 01/01/2020 [facility] 10 mg 10/12/2019 12:00:00 AM EST tablet 120 TAKE 3-4 TABLETS BY MOUTH AT BEDTIME TAKE 3-4 TABLETS BY MOUTH AT BEDTIME SOLD: 11/14/2019 [facility] Hydroxychloroquine Sulfate 200 MG Oral Tablet HYDROXYCHLOROQ UINE SULFATE 10/12/2019 12:00:00 AM EST tablet 60 TAKE TWO TABLE TS BY MOUTH EVERY DAY TAKE TWO TABLETS BY MOUTH EVERY DAY SOLD: 12/01/2019 [facility] Hydrochlorothiazide 12.5 MG Oral Tablet HYDROCHLOROTHIAZIDE 10/10/2019 12:00:00 AM EST tablet 30 TAKE ONE TABLET BY MOUTH JEFF RY DAY TAKE ONE TABLET BY MOUTH EVERY DAY SOLD: 03/08/2020 [facility] 12.5 mg 10/10/2019 12:00:00 AM EST tablet 30 TAKE ONE TABLET BY MOUTH EVERY DAY TAKE ONE TABLET BY MOUTH EVERY DAY SOLD: 10/10/2019 [facility] Hydrochlorothiazide 12.5 MG Oral Tablet HYDROCHLOROTHIAZIDE 10/10/2019 12:00:00 AM EST tablet 30 TAKE ONE TABLET BY MOUTH JEFF DAY TAKE ONE TABLET BY MOUTH EVERY DAY SOLD: 09/10/2020 [facility] 12.5 mg 10/10/2019 12:00:00 AM EST tablet 30 TAKE ONE TABLET BY MOUTH EVERY DAY TAKE ONE TABLET BY MOUTH EVERY DAY SOLD: 11/08/2019 [facility] Hydrochlorothiazide 12.5 MG Oral Tablet HYDROCHLOROTHIAZIDE 10/10/2019 12:00:00 AM EST tablet 30 TAKE ONE TABLET BY MOUTH JEFF TAKE ONE TABLET BY MOUTH EVERY DAY SOLD: 05/08/2020 [facility] 12.5 mg 10/10/2019 12:00:00 AM EST tablet 30 TAKE ONE TABLET BY MOUTH EVERY DAY TAKE ONE TABLET BY MOUTH EVERY DAY SOLD: 02/07/2020 [facility] 12.5 mg 10/10/2019 12:00:00 AM EST tablet 30 TAKE ONE TABLET BY MOUTH EVERY DAY TAKE ONE TABLET BY MOUTH EVERY DAY SOLD: 12/10/2019 [facility] Hydrochlorothiazide 12.5 MG Oral Tablet HYDROCHLOROTHIAZIDE 10/10/2019 12:00:00 AM EST tablet 30 TAKE ONE TABLET BY MOUTH JEFF TAKE ONE TABLET BY MOUTH EVERY DAY SOLD: 06/08/2020 [facility] 12.5 mg 10/10/2019 12:00:00 AM EST tablet 30 TAKE ONE TABLET BY MOUTH EVERY DAY TAKE ONE TABLET BY MOUTH EVERY DAY SOLD: 01/09/2020 [facility] Hydrochlorothiazide 12.5 MG Oral Tablet HYDROCHLOROTHIAZIDE 10/10/2019 12:00:00 AM EST tablet 30 TAKE ONE TABLET BY MOUTH JEFF TAKE ONE TABLET BY MOUTH EVERY DAY SOLD: 07/10/2020 [facility] Hydrochlorothiazide 12.5 MG Oral Tablet HYDROCHLOROTHIAZIDE 10/10/2019 12:00:00 AM EST tablet 30 TAKE ONE TABLET BY MOUTH JEFF DAY TAKE ONE TABLET BY MOUTH EVERY DAY SOLD: 2020 [facility] Hydrochlorothiazide 12.5 MG Oral Tablet HYDROCHLOROTHIAZIDE 10/10/2019 12:00:00 AM EST tablet 30 TAKE ONE TABLET BY MOUTH JEFF DAY TAKE ONE TABLET BY MOUTH EVERY DAY SOLD: 04/06/2020 [facility] Hydrochlorothiazide 12.5 MG Oral Tablet Hydrochlorothiazide 10/09/2019 12:00:00 AM EST ORAL active [facility] ([facility]) 100 mg 10/07/2019 12:00:00 AM EST tablet extended release 24 hr 30 TAKE ONE TABLET BY MOUTH AT BEDTIME TAKE ONE TABLET BY MOUTH AT BEDTIME SOLD: 10/07/2019 [facility] 100 mg 10/07/2019 12:00:00 AM EST tablet extended release 24 hr 30 TAKE ONE TABLET BY MOUTH AT BEDTIME TAKE ONE TABLET BY MOUTH AT BEDTIME SOLD: 11/08/2019 [facility] 100 mg 10/07/2019 12:00:00 AM EST tablet extended release 24 hr 30 TAKE ONE TABLET BY MOUTH AT BEDTIME TAKE ONE TABLET BY MOUTH AT BEDTIME SOLD: 01/01/2020 [facility] 100 mg 10/07/2019 12:00:00 AM EST tablet extended release 24 hr 30 TAKE ONE TABLET BY MOUTH AT BEDTIME TAKE ONE TABLET BY MOUTH AT BEDTIME SOLD: 02/21/2020 [facility] 100 mg 10/07/2019 12:00:00 AM EST tablet extended release 24 hr 30 TAKE ONE TABLET BY MOUTH AT BEDTIME TAKE ONE TABLET BY MOUTH AT BEDTIME SOLD: 01/27/2020 [facility] 100 mg 10/07/2019 12:00:00 AM EST tablet extended release 24 hr 30 TAKE ONE TABLET BY MOUTH AT BEDTIME TAKE ONE TABLET BY MOUTH AT BEDTIME SOLD: 12/04/2019 [facility] 25 mg 10/06/2019 12:00:00 AM EST tablet 7 TAKE ONE-HALF TABLET BY MOUTH EVERY OTHER DAY TAKE ONE-HALF TABLET BY MOUTH EVERY OTHER DAY SOLD: 10/07/19 20 [facility] Chlorthalidone 25 MG Oral Tablet Chlorthalidone 09/30/2019 12:00:00 A M EST completed [facility] ([facility]) 24 HR metoprolol succinate 100 MG Extended Release Ora l Tablet Metoprolol Succinate ER 09/23/2019 12:00:00 AM EST active [facility] ([facility]) 200 mg 09/11/2019 12:00:00 AM EST tablet 60 TAKE TWO TABLETS BY MOUTH EVERY DAY TAKE TWO TABLETS BY MOUTH EVERY DAY SOLD: 09/16/2019 [facility] 50 mg 09/06/2019 12:00:00 AM EST tablet 60 TAKE 1-2 TABLETS BY MOUTH FOUR TIMES A DAY NEEDED MAXIMUM DAILY DOSE = 6 TAKE 1-2 TABLETS BY MOUTH FOUR TIMES A DAY NEEDED MAXIMUM DAILY DOSE = 6 SOLD: 09/06/2019 [facility] Cyclobenzaprine hydrochloride 10 MG Oral Tablet CYCLOBENZAPR INE HCL 08/24/2019 12:00:00 AM EST tablet 120 TAKE 3-4 TABLETS BY MOUTH AT BEDTIME TAKE 3-4 TABLETS BY MOUTH AT BEDTIME SOLD: 09/06/2019 [facility] Hydroxychloroquine Sulfate 200 MG Oral T ablet [Plaquenil] Plaquenil 200 mg tablet Plaquenil 200 mg tablet 08/24/2019 12:00:00 AM EST completed Hydroxychloroquine Sulfate 200 MG Oral Tablet [Plaquen il] [facility] ([facility]) Hydroxychloroquine Sulfate 200 MG Oral T ablet [Plaquenil] HYDROXYCHLOROQUINE 200 MG TAB HYDROXYCHLOROQUINE 200 MG TAB 08/24/2019 12:00:00 AM EST completed Hydroxychloroquine Sulfate 200 M G Oral Tablet [Plaquenil] [facility] ([facility]) tramadol hydrochloride 50 MG Oral Tablet tramadol 50 m g tablet tramadol 50 mg tablet 08/21/2019 12:00:00 AM EST 1 {tbl} ORAL completed take 1 - 2 Tablet by oral route 4 times every day as needed [facility] ([facility]) MDD = 6 (SIX) 200 mg 07/21/2019 12:00:00 AM EST tablet 60 TAKE TWO TABLETS BY MOUTH EVERY DAY TAKE TWO TABLETS BY MOUTH EVERY DAY SOLD: 08/19/2019 [facility] Hydroxychloroquine Sulfate 200 MG Oral T ablet [Plaquenil] Plaquenil 200 mg tablet Plaquenil 200 mg tablet 07/14/2019 12:00:00 AM EST 2.00 {tbl} OR AL completed Hydroxychloroquine Sulfate 200 M G Oral Tablet [Plaquenil] [facility] ([facility]) Cyclobenzaprine hydrochloride 10 MG Oral Tablet cyclob enzaprine 10 mg tablet cyclobenzaprine 10 mg tablet 07/13/2019 12:00:00 AM EST ORAL completed take 3 - 4 Tablet by oral route every b edtime [facility] ([facility]) 50 mg 07/02/2019 12:00:00 AM EDT tablet extended release 24 hr 45 TAKE ONE AND ONE HALF TABLETS BY MOUTH AT BEDTIME TAKE ONE AND ONE HALF TABLETS BY MOUTH AT BEDTIME SOLD: 09/10/2019 [facility] 50 mg 07/02/2019 12:00:00 AM EDT tablet extended release 24 hr 45 TAKE ONE AND ONE HALF TABLETS BY MOUTH AT BEDTIME TAKE ONE AND ONE HALF TABLETS BY MOUTH AT BEDTIME SOLD: 2019 [facility] 24 HR metoprolol succinate 50 MG Extended Release Oral Tablet Metoprolol Succinate ER 06/30/2019 12:00:00 AM EDT ORAL completed [facility] ([facility]) 50 mg 06/17/2019 12:00:00 AM EDT tablet extended release 24 hr 30 TAKE ONE TABLET BY MOUTH EVERY DAY TAKE ONE TABLET BY MOUTH EVERY DAY SOLD: 03/08/2020 [facility] Escitalopram 5 MG Oral Tablet Escitalopram Oxalate 06/16/2019 12:00 :00 AM EDT ORAL completed [facility] ([facility]) Chlorthalidone 25 MG Oral Tablet Chlorthalidone 06/16/2019 12:00:00 A M EDT ORAL completed [facility] ([facility]) tramadol hydrochloride 50 MG Oral Tablet tramadol 50 m g tablet tramadol 50 mg tablet 06/08/2019 12:00:00 AM EDT 1 {tbl} ORAL completed take 1 - 2 Tablet by oral route 4 times every day as needed [facility] ([facility]) MDD = 6 (SIX) 20 mg 05/14/2019 12:00:00 AM EDT tablet 30 TAKE ONE TABLET BY MOUTH EVERY DAY TAKE ONE TABLET BY MOUTH EVERY DAY SOLD: 08/19/2019 [facility] 20 mg 05/14/2019 12:00:00 AM EDT tablet 30 TAKE ONE TABLET BY MOUTH EVERY DAY TAKE ONE TABLET BY MOUTH EVERY DAY SOLD: 10/17/2019 [facility] 20 mg 05/14/2019 12:00:00 AM EDT tablet 30 TAKE ONE TABLET BY MOUTH EVERY DAY TAKE ONE TABLET BY MOUTH EVERY DAY SOLD: 09/16/2019 [facility] 25 mg 04/21/2019 12:00:00 AM EDT tablet 30 TAKE ONE TABLET BY MOUTH EVERY MORNING TAKE ONE TABLET BY MOUTH EVERY MORNING SOLD: 08/19/2019 [facility] 25 mg 04/21/2019 12:00:00 AM EDT tablet 30 TAKE ONE TABLET BY MOUTH EVERY MORNING TAKE ONE TABLET BY MOUTH EVERY MORNING SOLD: 12/01/2019 [facility] 25 mg 04/21/2019 12:00:00 AM EDT tablet 30 TAKE ONE TABLET BY MOUTH EVERY MORNING TAKE ONE TABLET BY MOUTH EVERY MORNING SOLD: 09/16/2019 [facility] Lidocaine Hydrochloride 0.05 MG/MG Trans dermal Patch [Lidoderm] Lidoderm 5 % topical patch Lidoderm 5 % topical patch 09/30/2017 12:00:00 AM EST 1.00 patch TRANSDERMAL completed Lidocaine 0.05 MG/ MG Medicated Patch [[facility]oderm] [facility] 24 HR Diltiazem Hydrochloride 120 MG Ext ended Release Oral Capsule [Cartia] Cartia XT 120 mg capsule,extended release Cartia XT 120 mg capsule,extended release 1.00 {capsule} ORAL completed 24 HR Diltiazem Hydrochloride 120 MG Extended Release Oral Capsule [Cartia] [facility] ([facility]) Chlorthalidone 25 MG Oral Tablet chlorthalidone 25 mg tablet chlorthalidone 25 mg tablet completed take 1/2 tab let by oral route every day [facility] ([facility]) Escitalopram 5 MG Oral Tablet escitalopram 5 mg tablet escit alopram 5 mg tablet 1.00 {tbl} ORAL completed take 1 tab let by oral route every day [facility] ([facility]) 24 HR metoprolol succinate 50 MG Extende d Release Oral Tablet metoprolol succinate ER 50 mg tablet,extended release 24 hr metoprolol succinate ER 50 mg tablet,extended release 24 hr 1.00 {tbl} ORAL comp leted take 1 tablet by oral route every day [facility]) Insurance Providers Payer name Policy type / Coverage type Policy ID Covered green party ID Covered green party's relationship to hull Policy [place] Plan Information [employer] [place] [id number] HU2 [id number] [employer] HE[employer] [place] O [id number] S [id number] Aetna Other 0 Family Dependent Evaristo Frali ck 0 Aetna Other 0 Family Dependent Evaristo Frali ck 0 [employer] HE[employer]ARE [place] [id number] SP [id number] STATE INSURANCE FUND [id number] SP [id number] [facility] Trad/MX Medigap Part B [id number] Self [id number] [facility] P[facility] Health Maintenance Organization (HMO) [id number] Self [id number] [facility] Trad/MX Medigap Part B [id number] Self [id number] [place] Trad/MX Medigap Part B [id number] Self [id number] State Insurance Fund Workers Compensation [id number] Self [id number] [place] Trad/MX Medigap Part B [id number] Self [id number] [place] Trad/MX Medigap Part B [id number] Self [id number] [employer] Commercial [id number] Family Dependent W [id number] [employer] Healthcare F [id number] SPOUSE [id number] [employer] Commercial [id number] Family Dependent [id number] [employer] HEALTHCARE [place] [id number] HU2 [id number] [employer]ET[employer] HEALTHC[employer] [place] O [id number] P [id number] [employer] F [id number] SPOUSE [id number] [employer] F [id number] SPOUSE [id number] [employer] F [id number] SPOUSE [id number] AETNA [id number] Spo [id number] AETNA PI PI AETNA [id number] Spo [id number] [place] Trad/MX Commercial 802 Self 802 Excell Blue Ppo Health Maintenance Organization (HMO) 802 Self 802 [place] Trad/MX Commercial 802 Self 802 [place] Trad/MX Commercial 802 Self 802 State Insurance Fund Workers Compensation Self [place] Trad/MX Commercial 802 Self 802 [place] Trad/MX Commercial 802 Self 802 [employer]et[employer] Commercial Open Choice Pos II Family Dependent Open Choice Pos II [employer] F [id number] SPOUSE [id number] [employer] F [id number] SPOUSE [id number] AETNA US HEALTHCARE [place] [id number] SP [id number] AETNA US HEALTHCARE [place] O UNAVAILABLE P UNAVAILABLE [place]/307 [id number] SP [id number] EXCELLUS BCBS P [id number] S [id number] [place]/307 [id number] SP [id number] [employer] [place] PPO 302/307 [id number] Surgeries/Procedures Procedure Description Date Indications Data Source(s) Endoscopy Upper GI Biopsy 06/10/2020 12:00:00 AM EDT [facility] ([facility], ) Endoscopy Upper GI Remove Tumor/Polyp/Lesion Snare Technique 06/10/2020 12:00:00 AM EDT [facility] ([facility], ) Dilate Esophagus Unguided Sound Or Bougie 06/10/2020 1 2:00:00 AM EDT [facility] ([facility]) Diabetic Foot Exam 05/12/2020 12:00:00 AM EDT [facility] ([facility]) OFFICE/OUTPATIENT VISIT, EST 04/26/2020 12:00:00 AM EDT - 04/26/2020 12:00:00 AM EDT [facility] ([facility]) PHONE E/M BY PEBBLES 5-10 MIN 01/18/2020 12 :00:00 AM EDT - 01/18/2020 12:00:00 AM EDT [facility] ([facility]) No recent change in medical history No recent change in medi carla history 10/21/2019 12:00:00 AM EST JESSICA (Reyna jimenez MD [facility]) COMPUTERIZED OPHTHALMIC IMAGING RETINA Scodi Retina, w ith interpretation and report ([place]) 10/21/2019 12:00:00 AM EST JESSICA (Samir Hu MD [facility]) Comprehensive eye exam established patient (25) Compre hensive eye exam established patient (25) 10/21/2019 12:00:00 AM EST JESSICA (Reyna Hu MD [facility]) OFFICE/OUTPATIENT VISIT, EST 10/12/2019 12:00:00 AM EST - 10/12/2019 12:00:00 AM EST [facility] ([facility]) Mammogram 09/17/2019 12:00:00 AM EST Steve JOHN ([facility]) Results ID Date Data Source [id number] 10/02/2020 09:00:00 AM EST [facility] Name Value Range Interpretation Code Description Data Bety rce(s) Supporting Document(s) SARS coronavirus 2 RNA Not Detected [facility] This lab was ordered by [facility] and reported by [facility]. ID Date Data Source [id number] 08/30/2020 02:54:00 PM EST [facility] ([facility]) Name Value Range Interpretation Code Description Data Bety rce(s) Supporting Document(s) Thyrotropin [Units/volume] in Serum or Plasma by Detec tion limit <= 0.05 mIU/L 1.64 uIU/mL 0.36-3.74 [facility] ([facility] ) ID Date Data Source [id number] 08/30/2020 02:54:00 PM EST [facility] ([facility]) Name Value Range Interpretation Code Description Data Bety rce(s) Supporting Document(s) Glucose [Mass/volume] in Serum or Plasma 88 mg/dL 74-99 [facility] ([facility]) 100-125 mg/dL PRE-DIABETES/FASTING >126 mg/dL DIABETES/FASTING Urea nitrogen [Mass/volume] in Serum or Plasma 16 mg/dL 7-18 [facility] ([facility]) Potassium [Moles/volume] in Serum or Plasma 3.8 meq/L 3.5-5.1 [facility] ([facility]) Sodium [Moles/volume] in Serum or Plasma 134 meq/L 136-145 [facility] ([facility]) Creatinine 1.0 mg/dL 0.6-1.3 [facility] ([facility]) Chloride [Moles/volume] in Serum or Plasma 96 meq/L 98-107 [facility] ([facility]) Calcium [Mass/volume] in Serum or Plasma 9.0 mg/dL 8.5-10.1 [facility] ([facility]) Carbon dioxide, total [Moles/volume] in Serum or Plasma 31 meq/L 21 -32 [facility] ([facility]) Alkaline phosphatase isoenzyme [Units/volume] in Serum or Pl asma 84 mg/dL 46-116 [facility] ([facility]) Total Bilirubin 0.2 mg/dL 0.2-1.0 [facility] ([facility]) Aspartate aminotransferase [Enzymatic activity/volume] in Serum or Plasma 18 U/L 15-37 [facility] Proteinase 3 Ab [Units/volume] in Serum 7.8 g/dL 6.4-8.2 [facility] ([facility]) Albumin [Mass/volume] in Serum or Plasma 3.5 g/dL 3.4-5.0 [facility] Alanine aminotransferase [Enzymatic activity/volume] in Seru m or Plasma 22 U/L 12-78 [facility] A/G Ratio 0.81 CALC 1.00-1.90 [facility] Glomerular filtration rate/1.73 sq M pre dicted among blacks [Volume Rate/Area] in Serum or Plasma by Creatinine-based formula (MDRD) Laboratory test result [facility] ([facility]) <content>CHRONIC KIDNEY DISEASE STAGING PER NKF</content>
<content></content>
<content>STAGE I & II GFR >= 60 NORMAL TO MILDLY DECREASED</content>
<content>STAGE III GFR 30-59 MODERATELY DECREASED</content>
<content>STAGE IV GFR 15-29 SEVERELY DECREASED</content>
<content>STAGE V GFR <15 VERY LITTLE GFR LEFT</content>
<content>ESRD GFR <15 ON CUSTODIAL LABORER</content>
<content></content> Glomerular filtration rate/1.73 sq M pre dicted among non-blacks [Volume Rate/Area] in Serum or Plasma by Creatinine-based formula (MDRD) 57 mL/min [facility] ID Date Data Source [id number] 08/30/2020 02:54:00 PM EST [facility] Name Value Range Interpretation Code Description Data Bety rce(s) Supporting Document(s) Leukocytes [#/volume] in Blood by Automated count 12.4 x10*3/UL 4.1-1 0.9 [facility] NOTE: RESULT VERIFIED. Hemoglobin [Mass/volume] in Blood 12.6 g/dL 12.0-18.0 [facility] Hematocrit [Volume Fraction] of Blood by Automated count 37.2 % 3 7.0-51.0 [facility] ([facility]) Erythrocytes [#/volume] in Blood by Automated count 4.62 x10*6/UL 4.2 0-6.30 [facility] ([facility]) MCHC 34.1 g/dL 31.0-38.0 [facility] MCH 27.4 pg 26.0-32.0 [facility] MCV 80.4 fL 80.0-97.0 [facility]) Platelets [#/volume] in Blood by Automated count 422 x10*3/UL 140-440 [facility] ([facility]) Erythrocyte distribution width [Ratio] by Automated count 13.1 % 11.6-13.7 [facility] ([facility]) MPV 7.1 FL 7.8-11.0 [facility] ([facility]) Lymph % 16.4 % 10.0-58.5 [facility] ([facility]) Mid % 5.0 % 1.7-9.3 [facility] Neut % 78.6 % 37.0-92.0 [facility] Lymph # 2.1 x10*3/UL 0.6-4.1 [facility] ([facility]) Mid # 0.7 x10*3/UL 0.1-0.6 [facility] ([facility]) Neut # 10.1 x10*3/UL 2.0-7.8 [facility] ([facility]) ID Date Data Source [id number] 08/26/2020 12:00:00 PM EST [facility] ([facility] Name Value Range Interpretation Code Description Data Bety rce(s) Supporting Document(s) TP Reflex HPV ASCUS Laboratory test result [facility] ([facility]) SPECIMEN PART------ A. Cervical, Endocervical, ThinPrep Pap ([employer]) CYTOLOGY HX-------- Other Information:Previous Normal Pap: 08/21/19 Post-menopausal FINAL DIAGNOSIS---- INTERPRETATION: Negative for Intraepithelial Lesion or Malignancy. SPECIMEN ADEQUACY:Satisfactory for evaluation. Endocervical/transformation zone component present. TP Reflex HPV ASCUS Laboratory test result [facility] ([facility]) ID Date Data Source [id number] 06/10/2020 12:43:00 PM EDT [facility]) Name Value Range Interpretation Code Description Data Bety rce(s) Supporting Document(s) Surgical pathology study Laboratory test result [facility] ([facility]) FINAL DIAGNOSIS A - Gastric ulcer, biopsy: Gastric mucosa with focal superficial erosion and scattered neutrophils. No H. pylori is noted. B - Gastric polyp, polypectomy: Hyperplastic polyp. 06/13/2020 - 1309 CLINICAL DIAGNOSIS Dysphagia, difficulty swallowing 06/10/2020 - 1434 GROSS DIAGNOSIS A - Received in formalin labeled "gastric ulcer biopsy" is a 0.6 x 0.2 cm. aggregate of mucosal fragments. All in one. B - Received in formalin labeled "gastric polyp" is a 0.7 x 0.3 x 0.2 cm. polypoid portion of mucosa as well as a 0.5 x 0.2 x 0.2 cm. portion of normal looking mucosa. All in one. -CRISTO 06/10/20201434 Signed Lamar Alamo MD 06/13/2020 1315 ID Date Data Source [id number] 06/05/2020 10:00:00 AM EDT [facility] Name Value Range Interpretation Code Description Data Bety rce(s) Supporting Document(s) SARS coronavirus 2 RNA [facility] This lab was ordered by [facility] and reported by [facility]. ID Date Data Source [id number] 04/07/2020 08:01:00 AM EDT [facility] ([facility]) Name Value Range Interpretation Code Description Data Bety rce(s) Supporting Document(s) Glucose [Mass/volume] in Serum or Plasma 91 mg/dL 74-99 [facility] ([facility]) 100-125 mg/dL PRE-DIABETES/FASTING >126 mg/dL DIABETES/FASTING Creatinine 1.0 mg/dL 0.6-1.3 [facility] ([facility]) Urea nitrogen [Mass/volume] in Serum or Plasma 15 mg/dL 7-18 [facility] ([facility]) Potassium [Moles/volume] in Serum or Plasma 4.9 meq/L 3.5-5.1 [facility] ([facility]) Sodium [Moles/volume] in Serum or Plasma 144 meq/L 136-145 [facility] ([facility]) Chloride [Moles/volume] in Serum or Plasma 105 meq/L 98-107 [facility] ([facility]) Calcium [Mass/volume] in Serum or Plasma 9.1 mg/dL 8.5-10.1 [facility] ([facility]) Carbon dioxide, total [Moles/volume] in Serum or Plasma 27 meq/L 21 -32 [facility] Glomerular filtration rate/1.73 sq M pre dicted among non-blacks [Volume Rate/Area] in Serum or Plasma by Creatinine-based formula (MDRD) 57 mL/min [facility] Glomerular filtration rate/1.73 sq M pre dicted among blacks [Volume Rate/Area] in Serum or Plasma by Creatinine-based formula (MDRD) Laboratory test result [facility] <content>CHRONIC KIDNEY DISEASE STAGING PER NKF</content>
<content></content>
<content>STAGE I & II GFR >= 60 NORMAL TO MILDLY DECREASED</content>
<content>STAGE III GFR 30-59 MODERATELY DECREASED</content>
<content>STAGE IV GFR 15-29 SEVERELY DECREASED</content>
<content>STAGE V GFR <15 VERY LITTLE GFR LEFT</content>
<content>ESRD GFR <15 ON CUSTODIAL LABORER</content>
<content></content> ID Date Data Source [id number] 12/31/2019 07:54:00 AM EDT [facility] ([facility]) Name Value Range Interpretation Code Description Data Bety rce(s) Supporting Document(s) Urine Color Laboratory test result [facility] Specific gravity of Urine 1.010 1.005-1.030 [facility] Urine Appearance Laboratory test result Abnormal (applies to non-numeric results) [facility] ([facility]) Urine PH 7.5 units 5.0-9.0 [facility]) Urine Leukocytes Laboratory test result Abnormal (applies to non-numeric results) [facility] ([facility]) Urine Blood Laboratory test result [facility] ([facility]) Urine Protein Laboratory test result 0-0 [facility] ([facility]) Urine Ketone Laboratory test result [facility] Urine Nitrite Laboratory test result [facility] Glucose [Presence] in Urine [facility] Urine Urobilinogen 0.2 mg/dL 0.2-1.0 [facility] ([facility]) Bilirubin.total [Mass/volume] in Serum or Plasma Laboratory test resu lt [facility] ([facility]) ID Date Data Source [id number] 12/31/2019 07:54:00 AM EDT [facility] ([facility]) Name Value Range Interpretation Code Description Data Bety rce(s) Supporting Document(s) Thyrotropin [Units/volume] in Serum or Plasma by Detec tion limit <= 0.05 mIU/L 1.93 uIU/mL 0.36-3.74 [facility] ID Date Data Source [id number] 12/31/2019 07:54:00 AM EDT [facility] ([facility]) Name Value Range Interpretation Code Description Data Bety rce(s) Supporting Document(s) Triglyceride [Mass/volume] in Serum or Plasma 40 mg/dL 30-150 [facility] ([facility]) Cholesterol [Mass/volume] in Serum or Plasma 194 mg/dL 131-200 [facility] ([facility]) Cholesterol in LDL [Mass/volume] in Serum or Plasma by calcu lation 109 CALC 50-159 [facility] ([facility]) Cholesterol in HDL [Mass/volume] in Serum or Plasma 77 mg/dL 35-60 [facility] ([facility]) ID Date Data Source [id number] 12/31/2019 07:54:00 AM EDT [facility] ([facility]) Name Value Range Interpretation Code Description Data Bety rce(s) Supporting Document(s) Glucose [Mass/volume] in Serum or Plasma 86 mg/dL 74-99 [facility] ([facility]) 100-125 mg/dL PRE-DIABETES/FASTING >126 mg/dL DIABETES/FASTING Urea nitrogen [Mass/volume] in Serum or Plasma 13 mg/dL 7-18 [facility] ([facility]) Sodium [Moles/volume] in Serum or Plasma 138 meq/L 136-145 [facility] ([facility]) Creatinine 0.8 mg/dL 0.6-1.3 [facility] ([facility]) Potassium [Moles/volume] in Serum or Plasma 4.8 meq/L 3.5-5.1 [facility] ([facility]) Chloride [Moles/volume] in Serum or Plasma 101 meq/L 98-107 [facility] ([facility]) Carbon dioxide, total [Moles/volume] in Serum or Plasma 30 meq/L 21 -32 [facility] ([facility]) Calcium [Mass/volume] in Serum or Plasma 8.9 mg/dL 8.5-10.1 [facility] ([facility]) Alkaline phosphatase isoenzyme [Units/volume] in Serum or Pl asma 96 mg/dL 46-116 [facility] ([facility]) Total Bilirubin 0.2 mg/dL 0.2-1.0 [facility] ([facility]) Aspartate aminotransferase [Enzymatic activity/volume] in Serum or Plasma 12 U/L 15-37 [facility] ([facility] ) Alanine aminotransferase [Enzymatic activity/volume] in Seru m or Plasma 23 U/L 12-78 [facility] ([facility]) Proteinase 3 Ab [Units/volume] in Serum 7.3 g/dL 6.4-8.2 [facility] ([facility]) Albumin [Mass/volume] in Serum or Plasma 3.3 g/dL 3.4-5.0 [facility] NOTE: RESULT VERIFIED. Glomerular filtration rate/1.73 sq M pre dicted among non-blacks [Volume Rate/Area] in Serum or Plasma by Creatinine-based formula (MDRD) Laboratory test result [facility] Glomerular filtration rate/1.73 sq M pre dicted among blacks [Volume Rate/Area] in Serum or Plasma by Creatinine-based formula (MDRD) Laboratory test result [facility] ([facility]) <content>CHRONIC KIDNEY DISEASE STAGING PER NKF</content>
<content></content>
<content>STAGE I & II GFR >= 60 NORMAL TO MILDLY DECREASED</content>
<content>STAGE III GFR 30-59 MODERATELY DECREASED</content>
<content>STAGE IV GFR 15-29 SEVERELY DECREASED</content>
<content>STAGE V GFR <15 VERY LITTLE GFR LEFT</content>
<content>ESRD GFR <15 ON CUSTODIAL LABORER</content>
<content></content> A/G Ratio 0.83 CALC 1.00-1.90 [facility] ([facility]) ID Date Data Source [id number] 12/31/2019 07:54:00 AM EDT [facility] Name Value Range Interpretation Code Description Data Bety rce(s) Supporting Document(s) Creatine kinase [Enzymatic activity/volume] in Serum or Plasma 38 U /L 26-192 [facility] Magnesium 1.9 mg/dL 1.8-2.4 [facility] ([facility]) ID Date Data Source [id number] 12/31/2019 07:54:00 AM EDT [facility] Name Value Range Interpretation Code Description Data Bety rce(s) Supporting Document(s) Leukocytes [#/volume] in Blood by Automated count 9.1 x10*3/UL 4.1-10 .9 [facility] Erythrocytes [#/volume] in Blood by Automated count 4.92 x10*6/UL 4.2 0-6.30 [facility] ([facility]) Hemoglobin [Mass/volume] in Blood 12.8 g/dL 12.0-18.0 [facility] Hematocrit [Volume Fraction] of Blood by Automated count 38.9 % 3 7.0-51.0 [facility] MCV 79.0 fL 80.0-97.0 [facility] MCH 26.0 pg 26.0-32.0 [facility] ([facility]) MCHC 32.9 g/dL 31.0-38.0 [facility] ([facility]) Platelets [#/volume] in Blood by Automated count 411 x10*3/UL 140-440 [facility] MPV 6.8 FL 7.8-11.0 [facility] ([facility]) Erythrocyte distribution width [Ratio] by Automated count 13.5 % 11.6-13.7 [facility] ([facility]) Lymph % 13.9 % 10.0-58.5 [facility] ([facility]) Mid % 4.9 % 1.7-9.3 [facility] ([facility]) Neut % 81.2 % 37.0-92.0 [facility] ([facility]) Neut # 7.4 x10*3/UL 2.0-7.8 [facility] ([facility]) Lymph # 1.2 x10*3/UL 0.6-4.1 [facility] ([facility]) Mid # 0.5 x10*3/UL 0.1-0.6 [facility] ([facility]) ID Date Data Source [id number] 11/23/2019 07:36:00 AM EDT [facility] ([facility]) Name Value Range Interpretation Code Description Data Bety rce(s) Supporting Document(s) Glucose [Mass/volume] in Serum or Plasma 89 mg/dL 74-99 [facility] ([facility]) 100-125 mg/dL PRE-DIABETES/FASTING >126 mg/dL DIABETES/FASTING Urea nitrogen [Mass/volume] in Serum or Plasma 14 mg/dL 7-18 [facility] ([facility]) Creatinine 0.9 mg/dL 0.6-1.3 [facility] ([facility]) Potassium [Moles/volume] in Serum or Plasma 5.2 meq/L 3.5-5.1 [facility] ([facility]) NOTE: RESULT VERIFIED. NO VISIBLE HEMOLYSIS. Chloride [Moles/volume] in Serum or Plasma 100 meq/L 98-107 [facility] ([facility]) Sodium [Moles/volume] in Serum or Plasma 137 meq/L 136-145 [facility] ([facility]) Calcium [Mass/volume] in Serum or Plasma 9.3 mg/dL 8.5-10.1 [facility] Glomerular filtration rate/1.73 sq M pre dicted among non-blacks [Volume Rate/Area] in Serum or Plasma by Creatinine-based formula (MDRD) Laboratory test result [facility] Carbon dioxide, total [Moles/volume] in Serum or Plasma 30 meq/L 21 -32 [facility] Glomerular filtration rate/1.73 sq M pre dicted among blacks [Volume Rate/Area] in Serum or Plasma by Creatinine-based formula (MDRD) Laboratory test result [facility] <content>CHRONIC KIDNEY DISEASE STAGING PER NKF</content>
<content></content>
<content>STAGE I & II GFR >= 60 NORMAL TO MILDLY DECREASED</content>
<content>STAGE III GFR 30-59 MODERATELY DECREASED</content>
<content>STAGE IV GFR 15-29 SEVERELY DECREASED</content>
<content>STAGE V GFR <15 VERY LITTLE GFR LEFT</content>
<content>ESRD GFR <15 ON CUSTODIAL LABORER</content>
<content></content> ID Date Data Source [id number] 11/23/2019 07:36:00 AM EDT [facility] ([facility]) Name Value Range Interpretation Code Description Data Bety rce(s) Supporting Document(s) Magnesium 1.8 mg/dL 1.8-2.4 [facility] ID Date Data Source [id number] 10/21/2019 07:43:00 AM EST [facility] ([facility]) Name Value Range Interpretation Code Description Data Bety rce(s) Supporting Document(s) Glucose [Mass/volume] in Serum or Plasma 88 mg/dL 74-99 [facility] ([facility]) 100-125 mg/dL PRE-DIABETES/FASTING >126 mg/dL DIABETES/FASTING Urea nitrogen [Mass/volume] in Serum or Plasma 12 mg/dL 7-18 [facility] ([facility]) Creatinine 0.8 mg/dL 0.6-1.3 [facility] ([facility]) Sodium [Moles/volume] in Serum or Plasma 138 meq/L 136-145 [facility] ([facility]) Potassium [Moles/volume] in Serum or Plasma 4.8 meq/L 3.5-5.1 [facility] ([facility]) Chloride [Moles/volume] in Serum or Plasma 101 meq/L 98-107 [facility] ([facility]) Calcium [Mass/volume] in Serum or Plasma 9.1 mg/dL 8.5-10.1 [facility] ([facility]) Carbon dioxide, total [Moles/volume] in Serum or Plasma 31 meq/L 21 -32 [facility] ([facility]) Glomerular filtration rate/1.73 sq M pre dicted among blacks [Volume Rate/Area] in Serum or Plasma by Creatinine-based formula (MDRD) Laboratory test result [facility] ([facility]) <content>CHRONIC KIDNEY DISEASE STAGING PER NKF</content>
<content></content>
<content>STAGE I & II GFR >= 60 NORMAL TO MILDLY DECREASED</content>
<content>STAGE III GFR 30-59 MODERATELY DECREASED</content>
<content>STAGE IV GFR 15-29 SEVERELY DECREASED</content>
<content>STAGE V GFR <15 VERY LITTLE GFR LEFT</content>
<content>ESRD GFR <15 ON CUSTODIAL LABORER</content>
<content></content> Glomerular filtration rate/1.73 sq M pre dicted among non-blacks [Volume Rate/Area] in Serum or Plasma by Creatinine-based formula (MDRD) Laboratory test result [facility] ([facility] ) ID Date Data Source [id number] 10/08/2019 07:40:00 AM EST [facility] ([facility]) Name Value Range Interpretation Code Description Data Bety rce(s) Supporting Document(s) Glucose [Mass/volume] in Serum or Plasma 97 mg/dL 74-99 [facility] ([facility]) 100-125 mg/dL PRE-DIABETES/FASTING >126 mg/dL DIABETES/FASTING Urea nitrogen [Mass/volume] in Serum or Plasma 16 mg/dL 7-18 [facility] ([facility]) Creatinine 0.9 mg/dL 0.6-1.3 [facility] ([facility]) Potassium [Moles/volume] in Serum or Plasma 4.5 meq/L 3.5-5.1 [facility] ([facility]) Sodium [Moles/volume] in Serum or Plasma 136 meq/L 136-145 [facility] ([facility]) Chloride [Moles/volume] in Serum or Plasma 100 meq/L 98-107 [facility] ([facility]) Carbon dioxide, total [Moles/volume] in Serum or Plasma 30 meq/L 21 -32 [facility] ([facility]) Calcium [Mass/volume] in Serum or Plasma 9.2 mg/dL 8.5-10.1 [facility] Glomerular filtration rate/1.73 sq M pre dicted among non-blacks [Volume Rate/Area] in Serum or Plasma by Creatinine-based formula (MDRD) Laboratory test result [facility] Glomerular filtration rate/1.73 sq M pre dicted among blacks [Volume Rate/Area] in Serum or Plasma by Creatinine-based formula (MDRD) Laboratory test result [facility] <content>CHRONIC KIDNEY DISEASE STAGING PER NKF</content>
<content></content>
<content>STAGE I & II GFR >= 60 NORMAL TO MILDLY DECREASED</content>
<content>STAGE III GFR 30-59 MODERATELY DECREASED</content>
<content>STAGE IV GFR 15-29 SEVERELY DECREASED</content>
<content>STAGE V GFR <15 VERY LITTLE GFR LEFT</content>
<content>ESRD GFR <15 ON CUSTODIAL LABORER</content>
<content></content> ID Date Data Source [id number] 09/30/2019 07:40:00 AM EST [facility] ([facility]) Name Value Range Interpretation Code Description Data Bety rce(s) Supporting Document(s) Glucose [Mass/volume] in Serum or Plasma 90 mg/dL 74-99 [facility] ([facility]) 100-125 mg/dL PRE-DIABETES/FASTING >126 mg/dL DIABETES/FASTING Sodium [Moles/volume] in Serum or Plasma 139 meq/L 136-145 [facility] ([facility]) Creatinine 0.8 mg/dL 0.6-1.3 [facility] ([facility]) Urea nitrogen [Mass/volume] in Serum or Plasma 10 mg/dL 7-18 [facility] ([facility]) Potassium [Moles/volume] in Serum or Plasma 4.8 meq/L 3.5-5.1 [facility] ([facility]) Chloride [Moles/volume] in Serum or Plasma 103 meq/L 98-107 [facility] ([facility]) Carbon dioxide, total [Moles/volume] in Serum or Plasma 30 meq/L 21 -32 [facility] ([facility]) Glomerular filtration rate/1.73 sq M pre dicted among non-blacks [Volume Rate/Area] in Serum or Plasma by Creatinine-based formula (MDRD) Laboratory test result [facility] ([facility] ) Calcium [Mass/volume] in Serum or Plasma 9.2 mg/dL 8.5-10.1 [facility] ([facility]) Glomerular filtration rate/1.73 sq M pre dicted among blacks [Volume Rate/Area] in Serum or Plasma by Creatinine-based formula (MDRD) Laboratory test result [facility] ([facility]) <content>CHRONIC KIDNEY DISEASE STAGING PER NKF</content>
<content></content>
<content>STAGE I & II GFR >= 60 NORMAL TO MILDLY DECREASED</content>
<content>STAGE III GFR 30-59 MODERATELY DECREASED</content>
<content>STAGE IV GFR 15-29 SEVERELY DECREASED</content>
<content>STAGE V GFR <15 VERY LITTLE GFR LEFT</content>
<content>ESRD GFR <15 ON CUSTODIAL LABORER</content>
<content></content> ID Date Data Source [id number] 09/23/2019 08:11:00 AM EST [facility] ([facility]) Name Value Range Interpretation Code Description Data Bety rce(s) Supporting Document(s) Glucose [Mass/volume] in Serum or Plasma 88 mg/dL 74-99 [facility] ([facility]) 100-125 mg/dL PRE-DIABETES/FASTING >126 mg/dL DIABETES/FASTING Creatinine 0.9 mg/dL 0.6-1.3 [facility] ([facility]) Urea nitrogen [Mass/volume] in Serum or Plasma 11 mg/dL 7-18 [facility] ([facility]) Sodium [Moles/volume] in Serum or Plasma 130 meq/L 136-145 [facility] ([facility]) NOTE: RESULT VERIFIED. Chloride [Moles/volume] in Serum or Plasma 94 meq/L 98-107 [facility] ([facility]) Potassium [Moles/volume] in Serum or Plasma 4.6 meq/L 3.5-5.1 [facility] ([facility]) Carbon dioxide, total [Moles/volume] in Serum or Plasma 31 meq/L 21 -32 [facility] ([facility]) Glomerular filtration rate/1.73 sq M pre dicted among blacks [Volume Rate/Area] in Serum or Plasma by Creatinine-based formula (MDRD) Laboratory test result [facility] <content>CHRONIC KIDNEY DISEASE STAGING PER NKF</content>
<content></content>
<content>STAGE I & II GFR >= 60 NORMAL TO MILDLY DECREASED</content>
<content>STAGE III GFR 30-59 MODERATELY DECREASED</content>
<content>STAGE IV GFR 15-29 SEVERELY DECREASED</content>
<content>STAGE V GFR <15 VERY LITTLE GFR LEFT</content>
<content>ESRD GFR <15 ON CUSTODIAL LABORER</content>
<content></content> Glomerular filtration rate/1.73 sq M pre dicted among non-blacks [Volume Rate/Area] in Serum or Plasma by Creatinine-based formula (MDRD) Laboratory test result [facility] ([facility] ) Calcium [Mass/volume] in Serum or Plasma 9.2 mg/dL 8.5-10.1 [facility] ([facility]) ID Date Data Source [id number] 09/23/2019 08:11:00 AM EST [facility] ([facility]) Name Value Range Interpretation Code Description Data Bety rce(s) Supporting Document(s) Magnesium 1.8 mg/dL 1.8-2.4 [facility] ID Date Data Source [id number] 09/23/2019 08:11:00 AM EST [facility] ([facility]) Name Value Range Interpretation Code Description Data Bety rce(s) Supporting Document(s) Glucose mean value [Mass/volume] in Blood Estimated fr om glycated hemoglobin 134 mg/dL 60-110 [facility] ([facility] ) Hemoglobin A1c/Hemoglobin.total in Blood 6.3 g/dL 4.8-5.6 [facility] Lab Result Notes: Pre-Diabetes 5.7 - 6.4 % Diabetes = or > 6.5% Procedure Social History Code Duration Value Status Description Data Source(s ) Smoking 08/26/2020 12:00:00 AM EST Non-Smoker, Non-Drink er, Non-Drug User completed Non-Smoker, Non-Drinker, Non-Drug User [facility] ([facility]) Caffeine Use Details 08/12/2020 12:00:00 AM EST completed [facility] ([facility]) Smoking 08/12/2020 12:00:00 AM EST Unknown if ever smoked comp leted Unknown if ever smoked [facility] ([facility]) Caffeine Use Details 11/09/2019 12:00:00 AM EST completed coffee, 2 cups [facility] ([facility]) Smoking 10/21/2019 10:37:16 AM EST Never smoked tobacco (findi ng) completed Never smoked tobacco (finding) JESSICA (Reyna Hu MD [facility]) 10/12/2019 12:00:00 AM EST Never smoked tobacco comple andreea Never smoked tobacco [facility] ([facility]) Vital Signs ID Date Data Source [id number] Name Value Range Interpretation Code Description Data Source(s) Body mass index (BMI) [Ratio] 36.1 kg/m2 36.1 k g/m2 [facility] ([facility]) Body weight 208.50 [lb_av] 208.50 [lb_av] [facility] T ([facility]) Body height 63.75 [in_i] 63.75 [in_i] [facility] 5'3.75" Heart rate 76 /min 76 /min [facility] ([facility]) Diastolic blood pressure 80 mm[Hg] 80 mm[Hg] [facility] ([facility]) RT Arm Systolic blood pressure 136 mm[Hg] 136 mm[Hg] M [facility] ([facility]) RT Arm Body surface area Derived from formula 1.97 m2 1.97 m2 [facility] ([place] [facility]) Body mass index (BMI) [Ratio] 36.4 kg/m2 36.4 k g/m2 [facility] ([place] [facility]) Body weight 207.00 [lb_av] 207.00 [lb_av] [facility] ([place] [facility]) Body height 63.25 [in_i] 63.25 [in_i] [facility] ([facility]) 5'3.25" Diastolic blood pressure 76 mm[Hg] 76 mm[Hg] [facility] ([place] [facility]) Systolic blood pressure 128 mm[Hg] 128 [facility]Hg] [facility] [facility]) Body surface area Derived from formula 2.02 m2 2.02 m2 [facility] ([facility], ) Body weight 95.256 kg 95.256 kg [facility] ([facility], ) [place] body weight 125 [lb_av] 125 [lb_av] [facility] ([facility], ) Body mass index (BMI) [Ratio] 34.9 kg/m2 34.9 k g/m2 [facility] ([facility]) Body weight 210.00 [lb_av] 210.00 [lb_av] [facility] ([facility]) Body height 65 [in_i] 65 [in_i] [facility] ([facility]) 5'5" Diastolic blood pressure 100 mm[Hg] 100 mm[Hg] [facility] ([facility]) Systolic blood pressure 150 mm[Hg] 150 mm[Hg] [facility] ([facility]) Oxygen saturation in Arterial blood by Pulse oximetry 97 % 97 % [facility] ([facility]) Body weight 213.00 [lb_av] 213.00 [lb_av] [facility] ([facility]) Heart rate 76 /min 76 /min [facility] ([facility]) Diastolic blood pressure 74 mm[Hg] 74 mm[Hg] [facility] ([facility]) Systolic blood pressure 128 mm[Hg] 128 mm[Hg] [facility] ([facility]) Body mass index (BMI) [Ratio] 35.26 kg/m2 Overweight 35.26 kg/m2 [facility] ([facility]) Diastolic blood pressure 70 mm[Hg] 70 mm[Hg] [facility] ([facility]) Systolic blood pressure 108 mm[Hg] 108 mm[Hg] N [facility] ([facility]) Body weight 90.265 kg 90.265 kg [facility] Body height 159.99 cm 159.99 [facility] Body mass index (BMI) [Ratio] 36.5 kg/m2 36.5 k g/m2 [facility] ([facility]) Body weight 216.00 [lb_av] 216.00 [lb_av] [facility] ([facility]) Body height 64.50 [in_i] 64.50 [in_i] [facility] 5'4.50" Heart rate 80 /min 80 /min [facility] ([facility]) Diastolic blood pressure 80 mm[Hg] 80 mm[Hg] [facility] ([facility]) RT Arm Systolic blood pressure 122 mm[Hg] 122 mm[Hg] [facility] ([facility]) RT Arm Body surface area Derived from formula 2.04 m2 2.04 m2 [facility] ([facility]) Body weight 97.978 kg 97.978 kg [facility] ([facility]) [place] body weight 125 [lb_av] 125 [lb_av] [facility] ([facility]) Body mass index (BMI) [Ratio] 35.9 kg/m2 35.9 k g/m2 [facility] ([facility]) Body weight 216.00 [lb_av] 216.00 [lb_av] [facility] ([facility]) Body height 65 [in_i] 65 [in_i] [facility] ([facility]) 5'5" Diastolic blood pressure 80 mm[Hg] 80 mm[Hg] [facility] ([facility]) Systolic blood pressure 128 mm[Hg] 128 mm[Hg] [facility] ([facility]) Body mass index (BMI) [Ratio] 37.7 kg/m2 37.7 k g/m2 [facility] ([facility]) Body weight 223.00 [lb_av] 223.00 [lb_av] [facility] ([facility]) Body height 64.50 [in_i] 64.50 [in_i] [facility] 5'4.50" Heart rate 76 /min 76 /min [facility] Diastolic blood pressure 82 mm[Hg] 82 mm[Hg] [facility] ([facility]) RT Arm Systolic blood pressure 126 mm[Hg] 126 mm[Hg] [facility] ([facility]) RT Arm Body mass index (BMI) [Ratio] 38.0 kg/m2 38.0 k g/m2 [facility] ([facility]) Body weight 225.00 [lb_av] 225.00 [lb_av] [facility] ([facility]) Body height 64.50 [in_i] 64.50 [in_i] [facility] 5'4.50" Heart rate 88 /min 88 /min [facility] ([facility]) Diastolic blood pressure 78 mm[Hg] 78 mm[Hg] [facility] ([facility]) RT Arm Systolic blood pressure 116 mm[Hg] 116 mm[Hg] M [facility] ([facility]) RT Arm Body mass index (BMI) [Ratio] 39.69 kg/m2 Overweight 39.69 kg/m2 [facility] ([facility]) Diastolic blood pressure 70 mm[Hg] 70 mm[Hg] [facility] ([facility]) Systolic blood pressure 120 mm[Hg] 120 mm[Hg] N [facility] ([facility]) Body weight 101.605 kg 101.605 kg [facility] Body height 159.99 cm 159.99 cm [facility] ([facility] Body mass index (BMI) [Ratio] 37.5 kg/m2 37.5 k g/m2 [facility] ([facility]) Body weight 222.00 [lb_av] 222.00 [lb_av] [facility] ([facility]) Body height 64.50 [in_i] 64.50 [in_i] [facility] 5'4.50" Heart rate 88 /min 88 /min [facility] ([facility]) Diastolic blood pressure 84 mm[Hg] 84 mm[Hg] [facility] ([facility]) RT Arm Systolic blood pressure 122 mm[Hg] 122 mm[Hg] M [facility] ([facility]) RT Arm Body surface area Derived from formula 2.04 m2 2.04 m2 [facility] ([place] [facility]) Body mass index (BMI) [Ratio] 39.2 kg/m2 39.2 k g/m2 [facility] ([place] [facility]) Body weight 225.00 [lb_av] 225.00 [lb_av] [facility] ([place] [facility]) Body height 63.5 [in_i] 63.5 [in_i] [facility] ([facility]) 5'3.50" Diastolic blood pressure 66 mm[Hg] 66 mm[Hg] [facility] ([place] [facility]) Systolic blood pressure 128 mm[Hg] 128 mm[Hg] M [facility] ([place] [facility]) Body surface area 2.04 m2 2.04 m2 [facility] ([place] [facility]) Patient Treatment Plan of Care Planned Activity Planned Date Details Description Data Source (s) Hydroxychloroquine Sulfate 200 MG Oral Tablet [[place]] 09/08/2020 12:00:00 AM EST [facility] Nortriptyline 10 MG Oral Capsule 07/26/2020 12:00:00 AM EST [facility] ([facility]) tramadol hydrochloride 50 MG Oral Tablet 07/20/2020 12:00:00 AM EST [facility] ([facility]) Hydroxychloroquine Sulfate 200 MG Oral Tablet [[place]] 05/24/2020 12:00:00 AM EDT [facility] ([facility]) tramadol hydrochloride 50 MG Oral Tablet 04/28/2020 12:00:00 AM EDT [facility] ([facility]) 12 HR Orphenadrine Citrate 100 MG Extended Release Ora l Tablet 04/26/2020 12:00:00 AM EDT [facility] ([facility]) tramadol hydrochloride 50 MG Oral Tablet 04/26/2020 12:00:00 AM EDT [facility] ([facility]) Lidocaine Hydrochloride 0.05 MG/MG Transdermal Patch [ Lidoderm] 02/25/2020 12:00:00 AM EDT [facility] Hydroxychloroquine Sulfate 200 MG Oral Tablet [[place] [place]] 01/19/2020 12:00:00 AM EDT [facility] ([facility]) Cyclobenzaprine hydrochloride 10 MG Oral Tablet 01/19/2020 12:00:00 AM EDT [facility] ([facility]) tramadol hydrochloride 50 MG Oral Tablet 01/19/2020 12:00:00 AM EDT [facility] ([facility]) tramadol hydrochloride 50 MG Oral Tablet 11/09/2019 12:00:00 AM EST [facility] ([facility]) Cyclobenzaprine hydrochloride 10 MG Oral Tablet 10/12/2019 12:00:00 AM EST [facility] ([facility]) Hydroxychloroquine Sulfate 200 MG Oral Tablet [[place]] 10/12/2019 12:00:00 AM EST [facility] ([facility]) Hydroxychloroquine Sulfate 200 MG Oral Tablet [[place]] 08/24/2019 12:00:00 AM EST [facility] ([facility]) Hydroxychloroquine Sulfate 200 MG Oral Tablet [[place]] 08/24/2019 12:00:00 AM EST [facility] ([facility]) tramadol hydrochloride 50 MG Oral Tablet 08/21/2019 12:00:00 AM EST [facility] ([facility]) Hydroxychloroquine Sulfate 200 MG Oral Tablet [[place]] 07/14/2019 12:00:00 AM EST [facility] ([facility]) Cyclobenzaprine hydrochloride 10 MG Oral Tablet 07/13/2019 12:00:00 AM EST [facility] ([facility]) tramadol hydrochloride 50 MG Oral Tablet 06/08/2019 12:00:00 AM EDT [facility] ([facility]) Lidocaine Hydrochloride 0.05 MG/MG Transdermal Patch [ Lidoderm] 09/30/2017 12:00:00 AM EST [facility] ([facility]) 24 HR Diltiazem Hydrochloride 120 MG Extended Release Oral Capsu le [Cartia] [facility] ([facility]) Escitalopram 5 MG Oral Tablet [facility] ([facility]) 24 HR metoprolol succinate 50 MG Extended Release Oral Tablet [facility] ([facility]) Chlorthalidone 25 MG Oral Tablet [facility] ([facility])
--- NOTE | 2020-10-07 15:12 | ROOR ---
Patient Name: Brenda Ramirez Procedure Date: 10/07/2020 2:54 PM Date of : 1960 Age: 60 Room: [id number] Gender: Female Note Status: Finalized Procedure: Upper GI endoscopy Indications: Follow-up of gastric ulcer Providers: Celestino HAMPTON MD Referring MD: Barbra HOOVER MD Requesting Provider: Medicines: Monitored Anesthesia Care Complications: No immediate complications. Procedure: Pre-Anesthesia Assessment: - The heart rate, respiratory rate, oxygen saturations, blood pressure, adequacy of pulmonary ventilation, and response to care were monitored throughout the procedure. The Endoscope was introduced through the mouth, and advanced to the second part of duodenum. The upper GI endoscopy was accomplished without difficulty. The patient tolerated the procedure well. Findings: The examined esophagus was normal. A large hiatal hernia was present. The entire examined stomach was normal. The examined duodenum was normal. There is no endoscopic evidence of ulceration in the stomach. Impression: - Normal esophagus. - Large hiatal hernia. - Normal stomach. (prepyloric ulcers have healed) - Normal examined duodenum. - No specimens collected. Recommendation: - Continue present medications. - Return to my office PRN. Procedure Code(s): --- Professional --- 53563, Esophagogastroduodenoscopy, flexible, transoral; diagnostic, including collection of specimen(s) by brushing or washing, when performed (separate procedure) Diagnosis Code(s): --- Professional --- K44.9, Diaphragmatic hernia without obstruction or gangrene K25.9, Gastric ulcer, unspecified as acute or chronic, without hemorrhage or perforation CPT copyright 2019 [employer]. All rights reserved. The codes documented in this report are preliminary and upon silversmith apprentice review may be revised to meet current compliance requirements. Celestino Hampton MD Celestino HAMPTON MD 10/07/2020 3:12:10 PM Electronically signed by Celestino HAMPTON MD Number of Addenda: 0 Note Initiated On: 10/07/2020 2:54 PM Estimated Blood Loss: Estimated blood loss: none.
[2020-10-07 15:40] VITALS: BP 129/72
== END 2020-10-07 15:42 | disposition home or self-care (01) ==
LOC: M OPP 12:47
PROVIDERS: ATTEND Internal Medicine Gastroenterology
DX: K25.9 Gastric ulcer, unspecified as acute or chronic, without hemorrhage or perforation (principal); K44.9 Diaphragmatic hernia without obstruction or gangrene; I10 Essential (primary) hypertension; E78.5 Hyperlipidemia, unspecified; R12 Heartburn; M19.90 Unspecified osteoarthritis, unspecified site; L30.9 Dermatitis, unspecified; M79.7 Fibromyalgia; K57.92 Diverticulitis of intestine, part unspecified, without perforation or abscess without bleeding; F41.9 Anxiety disorder, unspecified; Z88.0 Allergy status to penicillin; Z88.6 Allergy status to analgesic agent; Z91.010 Allergy to peanuts; Z91.013 Allergy to seafood; Z91.018 Allergy to other foods; Z91.09 Other allergy status, other than to drugs and biological substances; Z79.899 Other long term (current) drug therapy; Z82.49 Family history of ischemic heart disease and other diseases of the circulatory system; Z80.3 Family history of malignant neoplasm of breast; Z83.3 Family history of diabetes mellitus

== ENCOUNTER → 2021-01-20 | Outpatient (REF) | payer OTHER ==
[~2021-01-20] MED LIST changes: -LIDOCAINE 2% 100MG/5ML SDV (FOR ANES.) As Ordered ONE; -LISI-538 PO; -LISI-542 PO; +LISI-898 PO; +LISI20TA33 PO; -NS 1,000 ML IV ONE; -propofoL 200 MG/20 ML VIAL As Ordered ONE
[2021-01-20 17:50] LABS: INR 0.95; PROTHROMBIN TIME 12.9 SECONDS (12.5-14.3)
[2021-01-20 17:51] LABS: PARTIAL THROMBOPLASTIN TIME 28.5 SECONDS (24.2-38.5)
== END ==
LOC: M LAB REF 16:55
PROVIDERS: ATTEND Internal Medicine
DX: M54.5 Low back pain (principal); M54.6 Pain in thoracic spine

== ENCOUNTER → 2022-01-16 | Outpatient (REF) | payer BC ==
[~2022-01-16] MED LIST changes: -LISI-898 PO; +LISI5TAB11 PO; +OMEP-173 PO; -OMEP-218 PO
== END ==
LOC: M LAB REF 12:11
PROVIDERS: ATTEND Internal Medicine
DX: M06.9 Rheumatoid arthritis, unspecified (principal)

== ENCOUNTER → 2022-03-15 | Outpatient (REF) | payer BC | LOC: M LAB REF 16:05 | PROVIDERS: ATTEND Internal Medicine | DX: M06.9 Rheumatoid arthritis, unspecified (principal) ==

== ENCOUNTER 2023-07-12 09:53 | Day surgery (SDC) | payer BC ==
[~2023-07-12] VITALS: Ht 162.6 cm; Wt 90.4 kg
[~2023-07-12 09:53] MED LIST changes: +FURO20TA2 PO; -HYDR200T3 PO; +HYDR200T46 PO; +NS 1,000 ML IV ONE; -ORPH100T; +ORPH1TAB6
[2023-07-12] MEDS ORDERED: LIDOCAINE 2% 100MG/5ML SDV (FOR ANES.) As Ordered ONE (10:59)
[2023-07-12] MEDS ORDERED: fentaNYL 100 MCG/2 ML INJECTION As Ordered ONE (10:59)
[2023-07-12] MEDS ORDERED: propofoL 200 MG/20 ML VIAL As Ordered ONE ×2 (10:59→11:19)
[2023-07-12 11:29] VITALS: TEMP 97.9
[2023-07-12 11:50] VITALS: BP 103/54; O2SAT 98
== END 2023-07-12 11:57 | disposition home or self-care (01) ==
LOC: M OPP 09:53
PROVIDERS: ATTEND Internal Medicine Gastroenterology
DX: D12.2 Benign neoplasm of ascending colon (principal); K64.8 Other hemorrhoids; K57.30 Diverticulosis of large intestine without perforation or abscess without bleeding; K63.89 Other specified diseases of intestine; D50.9 Iron deficiency anemia, unspecified; K44.9 Diaphragmatic hernia without obstruction or gangrene; Z79.1 Long term (current) use of non-steroidal anti-inflammatories (NSAID); Z79.51 Long term (current) use of inhaled steroids; Z79.891 Long term (current) use of opiate analgesic; Z79.899 Other long term (current) drug therapy; Z91.013 Allergy to seafood; Z91.048 Other nonmedicinal substance allergy status
CPT/HCPCS: 43239; 45380; 88305; J3010

== ENCOUNTER → 2023-09-11 | Outpatient (REF) | payer BC ==
[~2023-09-11] MED LIST changes: -NS 1,000 ML IV ONE
== END ==
LOC: M LAB REF 16:31
PROVIDERS: ATTEND Internal Medicine
DX: N39.0 Urinary tract infection, site not specified (principal)

== ENCOUNTER → 2023-10-03 | Outpatient (REF) | payer BC ==
[2023-10-03 12:36] LABS: APPEARANCE, URINE CLEAR (CLEAR); BACTERIA, URINE AUTO NEGATIVE (NEGATIVE); BILIRUBIN, URINE AUTO NEGATIVE (NEGATIVE); BLOOD, URINE BLOOD NEGATIVE (NEGATIVE); COLOR, URINE YELLOW (YELLOW); GLUCOSE, URINE (UA) AUTO NEGATIVE (NEGATIVE); KETONE, URINE AUTO NEGATIVE (NEGATIVE); LEUKOCYTE ESTERASE, URINE AUTO 3+ (NEGATIVE); MUCUS, URINE SMALL (NEGATIVE); NITRITE, URINE AUTO NEGATIVE (NEGATIVE); PROTEIN, URINE AUTO NEGATIVE (NEGATIVE); RBC, URINE AUTO 0 /HPF (0-3); SPECIFIC GRAVITY URINE AUTO 1.011 (1.002-1.035); SQUAMOUS EPITHELIAL CELL UR AU 4 /HPF (0-6); UROBILINOGEN, URINE AUTO 0.2 mg/dL (0.0-2.0); WBC, URINE AUTO 3 /HPF (0-3)
== END ==
LOC: M LAB REF 11:50
PROVIDERS: ATTEND Internal Medicine
DX: R31.0 Gross hematuria (principal)

== ENCOUNTER → 2023-10-25 | Outpatient (CLI) | payer BC | LOC: M PLAIMG 09:48 | PROVIDERS: ATTEND Internal Medicine | DX: R31.0 Gross hematuria (principal); K44.9 Diaphragmatic hernia without obstruction or gangrene ==

== ENCOUNTER → 2023-11-15 | Outpatient (REF) | payer BC ==
[2023-11-15 18:59] LABS: APPEARANCE, URINE HAZY (CLEAR); BACTERIA, URINE AUTO NEGATIVE (NEGATIVE); BILIRUBIN, URINE AUTO NEGATIVE (NEGATIVE); BLOOD, URINE BLOOD NEGATIVE (NEGATIVE); COLOR, URINE YELLOW (YELLOW); GLUCOSE, URINE (UA) AUTO NEGATIVE (NEGATIVE); KETONE, URINE AUTO NEGATIVE (NEGATIVE); LEUKOCYTE ESTERASE, URINE AUTO 3+ (NEGATIVE); MUCUS, URINE SMALL (NEGATIVE); NITRITE, URINE AUTO NEGATIVE (NEGATIVE); PROTEIN, URINE AUTO NEGATIVE (NEGATIVE); RBC, URINE AUTO 0 /HPF (0-3); SPECIFIC GRAVITY URINE AUTO 1.013 (1.002-1.035); SQUAMOUS EPITHELIAL CELL UR AU 2 /HPF (0-6); UROBILINOGEN, URINE AUTO 0.2 mg/dL (0.0-2.0); WBC, URINE AUTO 16 /HPF (0-3)
== END ==
LOC: M SMT 17:08
PROVIDERS: ATTEND Urology
DX: R31.0 Gross hematuria (principal)

== ENCOUNTER → 2023-11-21 | Outpatient (CLI) | payer BC ==
[~2023-11-21] MED LIST changes: +ISOVUE-370 76% 100ML VIAL ONE
== END ==
LOC: M PLAIMG 09:17
PROVIDERS: ATTEND Urology
DX: R31.0 Gross hematuria (principal); N28.89 Other specified disorders of kidney and ureter
CPT/HCPCS: 74178; Q9967

== ENCOUNTER → 2023-12-19 | Outpatient (CLI) | payer BC ==
[~2023-12-19] MED LIST changes: -ISOVUE-370 76% 100ML VIAL ONE; +PROHANCE 279.3MG/ML 15ML VIAL ONE; +PROHANCE 279.3MG/ML 5ML VIAL ONE
== END ==
LOC: M PLAIMG 08:15
PROVIDERS: ATTEND Urology
DX: N28.89 Other specified disorders of kidney and ureter (principal); K80.20 Calculus of gallbladder without cholecystitis without obstruction; K44.9 Diaphragmatic hernia without obstruction or gangrene
CPT/HCPCS: 74183; A9576

== ENCOUNTER 2024-10-21 14:14 | Inpatient (IN) | payer BC ==
[~2024-10-21] VITALS: Ht 162.6 cm; Wt 92.7 kg
[~2024-10-21 14:14] MED LIST changes: -PROHANCE 279.3MG/ML 15ML VIAL ONE; -PROHANCE 279.3MG/ML 5ML VIAL ONE
[2024-10-21] MEDS ORDERED: ISOVUE-370 76% 100ML VIAL As Ordered ONE (15:15)
[2024-10-21] MEDS: ONDANSETRON 4MG 2ML VIAL IV ONE (15:20)
[2024-10-21] MEDS: MORPHINE 4 MG/ML 1ML VIAL IV PRN (15:22)
[2024-10-21 15:56] LABS: BASO # 0.1 10^3/uL (0.0-0.2); BASO % 0.4 % (0.0-1.0); EOS # 1.2 10^3/uL (0.0-0.5); EOS % 8.5 % (0.0-3.0); HEMATOCRIT 36.9 % (36.0-47.0); LYMPH # 1.2 10^3/uL (1.5-5.0); LYMPH % 8.3 % (24.0-44.0); MEAN CORPUSCULAR HEMOGLOBIN 28.4 pg (27.0-33.0); MEAN CORPUSCULAR HGB CONC 32.5 g/dl (32.0-36.5); MEAN CORPUSCULAR VOLUME 87.2 fl (80.0-96.0); MONO # 0.9 10^3/uL (0.0-0.8); MONO % 6.7 % (2.0-8.0); NEUTROPHILS # 10.6 10^3/uL (1.5-8.5); NEUTROPHILS % 75.7 % (36.0-66.0); PLATELET COUNT, AUTOMATED 359 10^3/uL (150-450); RED BLOOD COUNT 4.23 10^6/uL (4.00-5.40); WHITE BLOOD COUNT 13.9 10^3/uL (4.0-10.0)
[2024-10-21 16:05] LABS: LIPASE 66 U/L (12-53)
[2024-10-21 16:08] LABS: ALBUMIN 3.7 G/DL (3.2-5.2); ALKALINE PHOSPHATASE 69 U/L (35-104); ALT/SGPT 21 U/L (7.0-40); AST/SGOT 20 U/L (<34); BILIRUBIN,DIRECT < 0.1 MG/DL (<0.4); BILIRUBIN,TOTAL 0.2 MG/DL (0.3-1.2); BLOOD UREA NITROGEN 18 MG/DL (9-23); CARBON DIOXIDE LEVEL 26 MMOL/L (20-31); CHLORIDE LEVEL 98 MMOL/L (98-107); CK-MB VALUE MASS < 1.0 NG/ML (<3.6); CREATININE FOR GFR 0.74 MG/DL (0.55-1.30); GLOMERULAR FILTRATION RATE > 60.0 (>45); GLUCOSE, FASTING 149 MG/DL (74-106); POTASSIUM SERUM 4.6 MMOL/L (3.5-5.1); SODIUM LEVEL 136 MMOL/L (136-145); TOTAL PROTEIN 6.9 G/DL (5.7-8.2)
[2024-10-21 16:12] LABS: CPK CREATINE PHOSPHOKINASE 98 U/L (34-145); MB/CK RELATIVE INDEX 1.02 (< OR =4)
[2024-10-21 16:25] LABS: CK-MB VALUE MASS < 1.0 NG/ML (<3.6)
[2024-10-21 16:29] LABS: CPK CREATINE PHOSPHOKINASE 88 U/L (34-145); MB/CK RELATIVE INDEX 1.13 (< OR =4)
[2024-10-21] MEDS: SUCRALFATE SUSP 1GM/10ML UD PO ONE (17:09)
[2024-10-21] MEDS: MAALOX 30 ML SUSP *UDC PO ONE (17:10)
[2024-10-21] MEDS: LIDOCAINE VISCOUS 2% SOLN 15ML UDC PO ONE (17:11)
[2024-10-21] MEDS: MORPHINE 4 MG/ML 1ML VIAL IV ONE (18:04)
[2024-10-21] MEDS: lisinopriL 5 MG TAB PO SCH (21:00)
[2024-10-21] MEDS: METOPROLOL SUCC (TopROL XL) 100MG *XL* TAB PO SCH (21:00)
[2024-10-21] MEDS ORDERED: LISI30TA4 PO (21:17)
[2024-10-21] MEDS ORDERED: BUPR150T12 PO (21:17)
[2024-10-21] MEDS ORDERED: HOME MED LIST COMPLETE! XX SCH (21:20)
[2024-10-21] MEDS: CIPROFLOXACIN 400 MG in IV 1 EA IV ONE (23:02)
[2024-10-21] MEDS: NS (Normal Saline) 0.9% 1,000 ML IV SCH (23:02)
[2024-10-21] MEDS: OMEPRAZOLE 20MG CAP PO SCH (23:03)
[2024-10-22] MEDS: metroNIDAZOLE 500 MG in IV 1 EA IV ONE (00:10)
[2024-10-22] MEDS: ONDANSETRON 4MG 2ML VIAL IV PRN (02:25)
[2024-10-22] MEDS: HEPARIN SOD (PORCINE) 5000UNITS/ML 1ML VIAL/SYRINGE SC SCH (06:46)
[2024-10-22] MEDS: MORPHINE 2 MG/ML 1ML VIAL IV PRN (06:48)
[2024-10-22 07:34] LABS: HEMATOCRIT 37.5 % (36.0-47.0); HEMOGLOBIN 12.1 g/dl (12.0-15.5); MEAN CORPUSCULAR HEMOGLOBIN 28.4 pg (27.0-33.0); MEAN CORPUSCULAR HGB CONC 32.3 g/dl (32.0-36.5); PLATELET COUNT, AUTOMATED 283 10^3/uL (150-450); RED BLOOD COUNT 4.26 10^6/uL (4.00-5.40); WHITE BLOOD COUNT 14.5 10^3/uL (4.0-10.0)
[2024-10-22 08:01] LABS: ALBUMIN 3.2 G/DL (3.2-5.2); ALKALINE PHOSPHATASE 64 U/L (35-104); ALT/SGPT 16 U/L (7.0-40); AST/SGOT 17 U/L (<34); BILIRUBIN,TOTAL 0.3 MG/DL (0.3-1.2); BLOOD UREA NITROGEN 11 MG/DL (9-23); CALCIUM LEVEL 8.8 MG/DL (8.3-10.6); CARBON DIOXIDE LEVEL 25 MMOL/L (20-31); CHLORIDE LEVEL 104 MMOL/L (98-107); CREATININE FOR GFR 0.57 MG/DL (0.55-1.30); GLOMERULAR FILTRATION RATE > 60.0 (>45); GLUCOSE, FASTING 81 MG/DL (74-106); POTASSIUM SERUM 4.2 MMOL/L (3.5-5.1); SODIUM LEVEL 139 MMOL/L (136-145); TOTAL PROTEIN 6.2 G/DL (5.7-8.2)
[2024-10-22] MEDS: metroNIDAZOLE 500 MG in IV 1 EA IV SCH (09:06)
[2024-10-22] MEDS: buPROPion **XL** TABLET 150MG (WELLBUTRIN XL) PO SCH (09:06)
[2024-10-22] MEDS: SPIRONOLACTONE 12.5MG PER 1/2 TABLET PO SCH (09:06)
[2024-10-22] MEDS: HYDROXYCHLOROQUINE 200 MG TAB PO SCH (09:08)
[2024-10-22] MEDS: CIPROFLOXACIN 400 MG in IV 1 EA IV SCH (11:22)
[2024-10-22] MEDS: METOCLOPRAMIDE INJ 10MG/2ML VIAL IV SCH (15:02)
[2024-10-23] VITALS (8 sets, daily range): BP systolic 118–147; BP diastolic 64–92; TEMP 97.5–98.9; O2SAT 94–100
[2024-10-23 05:31] LABS: HEMOGLOBIN 11.4 g/dl (12.0-15.5); MEAN CORPUSCULAR HEMOGLOBIN 28.1 pg (27.0-33.0); MEAN CORPUSCULAR HGB CONC 32.6 g/dl (32.0-36.5); MEAN CORPUSCULAR VOLUME 86.2 fl (80.0-96.0); PLATELET COUNT, AUTOMATED 295 10^3/uL (150-450); RED BLOOD COUNT 4.06 10^6/uL (4.00-5.40); WHITE BLOOD COUNT 15.6 10^3/uL (4.0-10.0)
[2024-10-23 05:41] LABS: ERYTHROCYTE SEDIMENTATION RATE 29 mm/hr (0-30)
[2024-10-23 05:42] LABS: C REACTIVE PROTEIN QUANTITATIV 11.49 MG/DL (<1.0)
[2024-10-23 05:50] LABS: ALBUMIN 2.8 G/DL (3.2-5.2); ALKALINE PHOSPHATASE 61 U/L (35-104); ALT/SGPT 15 U/L (7.0-40); AST/SGOT 17 U/L (<34); BILIRUBIN,TOTAL 0.3 MG/DL (0.3-1.2); BLOOD UREA NITROGEN 7 MG/DL (9-23); CALCIUM LEVEL 8.3 MG/DL (8.3-10.6); CARBON DIOXIDE LEVEL 25 MMOL/L (20-31); CHLORIDE LEVEL 101 MMOL/L (98-107); GLOMERULAR FILTRATION RATE > 60.0 (>45); GLUCOSE, FASTING 78 MG/DL (74-106); POTASSIUM SERUM 4.1 MMOL/L (3.5-5.1); SODIUM LEVEL 136 MMOL/L (136-145); TOTAL PROTEIN 5.7 G/DL (5.7-8.2)
[2024-10-23] MEDS ORDERED: PILL CUTTER 1 EACH XX ONE (10:05)
[2024-10-23] MEDS ORDERED: propofoL 200 MG/20 ML VIAL As Ordered ONE (13:16)
[2024-10-23] MEDS ORDERED: ROCURONIUM BROMIDE 50MG/5ML VIAL As Ordered ONE (13:16)
[2024-10-23] MEDS ORDERED: ONDANSETRON 4MG 2ML VIAL As Ordered ONE (13:16)
[2024-10-23] MEDS ORDERED: dexmedeTOMIDine (4MCG/ML)200MCG/50ML BTL (PRECEDEX) As Ordered ONE (13:16)
[2024-10-23] MEDS ORDERED: KETOROLAC 60MG 2ML VIAL As Ordered ONE (13:16)
[2024-10-23] MEDS ORDERED: MIDAZOLAM INJ 2MG/2ML VIAL As Ordered ONE (13:16)
[2024-10-23] MEDS ORDERED: LIDOCAINE 2% 100MG/5ML SDV (FOR ANES.) As Ordered ONE (13:16)
[2024-10-23] MEDS ORDERED: METOCLOPRAMIDE INJ 10MG/2ML VIAL As Ordered ONE (13:16)
[2024-10-23] MEDS ORDERED: SUGAMMADEX SODIUM 500 MG/5 ML VIAL (BRIDION) As Ordered ONE (13:16)
[2024-10-23] MEDS ORDERED: fentaNYL 250 MCG/5 ML INJECTION As Ordered ONE (13:16)
[2024-10-23] MEDS: INDOCYANINE GREEN 25MG VIAL (IC-GREEN) IV ONE (13:47)
[2024-10-23] MEDS ORDERED: ACETAMINOPHEN 1000MG/100ML IV BAG As Ordered ONE (14:06)
[2024-10-23] MEDS ORDERED: PHENYLephrine 500MCG 5ML (100MCG/ML) SYRINGE As Ordered ONE (14:11)
[2024-10-23] MEDS: INDOCYANINE GREEN 25MG VIAL (IC-GREEN) As Ordered ONE (14:30)
[2024-10-23] MEDS: LIDOCAINE 1% SDV 30ML VIAL As Ordered ONE (16:05)
[2024-10-23] MEDS: NS (Normal Saline) 0.9% 1,000 ML IV SCH (16:15)
[2024-10-23] MEDS ORDERED: oxyCODONE 5MG TAB PO PRN (16:15)
[2024-10-23] MEDS ORDERED: HYDROMORPHONE HCL 0.5 MG/ 0.5 ML SYRINGE IV PRN (16:15)
[2024-10-23] MEDS ORDERED: fentaNYL 100 MCG/2 ML INJECTION IV PRN (16:15)
[2024-10-23] MEDS ORDERED: ONDANSETRON 4MG 2ML VIAL IV PRN (16:15)
[2024-10-24] VITALS (7 sets, daily range): BP systolic 107–124; BP diastolic 62–78; TEMP 97.8–99.1; O2SAT 95–99
[2024-10-24] MEDS: ACETAMINOPHEN 325 MG TAB PO PRN (01:45)
[2024-10-24 06:07] LABS: BASO % 0.1 % (0.0-1.0); EOS # 0.1 10^3/uL (0.0-0.5); EOS % 0.4 % (0.0-3.0); HEMATOCRIT 28.5 % (36.0-47.0); HEMOGLOBIN 9.5 g/dl (12.0-15.5); LYMPH # 0.6 10^3/uL (1.5-5.0); MEAN CORPUSCULAR HEMOGLOBIN 28.9 pg (27.0-33.0); MEAN CORPUSCULAR HGB CONC 33.3 g/dl (32.0-36.5); MEAN CORPUSCULAR VOLUME 86.6 fl (80.0-96.0); MONO # 1.4 10^3/uL (0.0-0.8); MONO % 9.3 % (2.0-8.0); NEUTROPHILS % 85.7 % (36.0-66.0); PLATELET COUNT, AUTOMATED 251 10^3/uL (150-450); RED BLOOD COUNT 3.29 10^6/uL (4.00-5.40); WHITE BLOOD COUNT 15.1 10^3/uL (4.0-10.0)
[2024-10-24 06:33] LABS: ALBUMIN 2.4 G/DL (3.2-5.2); ALKALINE PHOSPHATASE 54 U/L (35-104); ALT/SGPT 41 U/L (7.0-40); AST/SGOT 47 U/L (<34); BILIRUBIN,TOTAL 0.4 MG/DL (0.3-1.2); BLOOD UREA NITROGEN 9 MG/DL (9-23); CALCIUM LEVEL 8.1 MG/DL (8.3-10.6); CARBON DIOXIDE LEVEL 24 MMOL/L (20-31); CHLORIDE LEVEL 103 MMOL/L (98-107); CREATININE FOR GFR 0.68 MG/DL (0.55-1.30); GLOMERULAR FILTRATION RATE > 60.0 (>45); GLUCOSE, FASTING 86 MG/DL (74-106); POTASSIUM SERUM 4.1 MMOL/L (3.5-5.1); SODIUM LEVEL 137 MMOL/L (136-145); TOTAL PROTEIN 5.1 G/DL (5.7-8.2)
[2024-10-24] MEDS: DOCUSATE SODIUM 100MG CAPSULE PO SCH (21:00)
[2024-10-24] MEDS: LevoFLOXacin IV 750 MG in IV 1 EA IV SCH (22:01)
[2024-10-25 04:10] VITALS: BP_SYST 119; BP_SYST 122; BP_DIAS 71; BP_DIAS 72; TEMP 99.3; O2SAT 96
[2024-10-25] MEDS: CYCLOBENZAPRINE 10MG TABLET PO PRN (05:47)
[2024-10-25 06:33] LABS: BASO % 0.2 % (0.0-1.0); EOS # 0.7 10^3/uL (0.0-0.5); EOS % 5.7 % (0.0-3.0); HEMATOCRIT 30.9 % (36.0-47.0); HEMOGLOBIN 9.9 g/dl (12.0-15.5); LYMPH # 0.7 10^3/uL (1.5-5.0); LYMPH % 5.8 % (24.0-44.0); MEAN CORPUSCULAR VOLUME 87.3 fl (80.0-96.0); MONO # 1.3 10^3/uL (0.0-0.8); MONO % 10.5 % (2.0-8.0); NEUTROPHILS # 9.7 10^3/uL (1.5-8.5); NEUTROPHILS % 77.2 % (36.0-66.0); PLATELET COUNT, AUTOMATED 261 10^3/uL (150-450); RED BLOOD COUNT 3.54 10^6/uL (4.00-5.40); WHITE BLOOD COUNT 12.5 10^3/uL (4.0-10.0)
[2024-10-25 07:03] LABS: ALBUMIN 2.7 G/DL (3.2-5.2); ALKALINE PHOSPHATASE 61 U/L (35-104); ALT/SGPT 49 U/L (7.0-40); AST/SGOT 40 U/L (<34); BILIRUBIN,TOTAL 0.4 MG/DL (0.3-1.2); BLOOD UREA NITROGEN 7 MG/DL (9-23); C REACTIVE PROTEIN QUANTITATIV 18.89 MG/DL (<1.0); CALCIUM LEVEL 8.1 MG/DL (8.3-10.6); CARBON DIOXIDE LEVEL 24 MMOL/L (20-31); CHLORIDE LEVEL 102 MMOL/L (98-107); CREATININE FOR GFR 0.62 MG/DL (0.55-1.30); GLOMERULAR FILTRATION RATE > 60.0 (>45); GLUCOSE, FASTING 83 MG/DL (74-106); POTASSIUM SERUM 4.1 MMOL/L (3.5-5.1); SODIUM LEVEL 137 MMOL/L (136-145); TOTAL PROTEIN 5.8 G/DL (5.7-8.2)
[2024-10-25] MEDS ORDERED: METR-369 PO (09:57)
[2024-10-25] MEDS ORDERED: CIPR-249 PO (09:57)
[2024-10-25] MEDS ORDERED: LEVO1TAB40 PO (10:26)
[2024-10-25] MEDS ORDERED: METR-265 PO (10:26)
== END 2024-10-25 11:42 | disposition home or self-care (01) | DRG 263 ==
LOC: M ED 14:14 → M ED INP 20:35 → M MSPAV 10-23 00:08
PROVIDERS: ADMIT Family Medicine; ATTEND Internal Medicine
PROC: 8E0W4CZ Robotic Assisted Procedure of Trunk Region, Percutaneous Endoscopic Approach (ICD-10-PCS; 2024-10-23)
PROC: 4A1BXSH Monitoring of Gastrointestinal Vascular Perfusion using Indocyanine Green Dye, External Approach (ICD-10-PCS; 2024-10-23)
PROC: 0FT44ZZ Resection of Gallbladder, Percutaneous Endoscopic Approach (ICD-10-PCS; principal; 2024-10-23 13:00)
DX: K80.62 Calculus of gallbladder and bile duct with acute cholecystitis without obstruction (principal); N28.1 Cyst of kidney, acquired; I10 Essential (primary) hypertension; E78.5 Hyperlipidemia, unspecified; K21.9 Gastro-esophageal reflux disease without esophagitis; M79.7 Fibromyalgia; M19.90 Unspecified osteoarthritis, unspecified site; F41.9 Anxiety disorder, unspecified; M54.50 Low back pain, unspecified; G89.29 Other chronic pain; F39 Unspecified mood [affective] disorder; L30.9 Dermatitis, unspecified; Z98.1 Arthrodesis status; Z90.49 Acquired absence of other specified parts of digestive tract; Z79.899 Other long term (current) drug therapy; Z88.0 Allergy status to penicillin; Z88.6 Allergy status to analgesic agent; Z91.013 Allergy to seafood; Z91.018 Allergy to other foods; Z91.010 Allergy to peanuts; Z91.048 Other nonmedicinal substance allergy status

== ENCOUNTER → 2024-10-27 | Outpatient (REF) | payer BC ==
[~2024-10-27] MED LIST changes: +BUPR150T12 PO; +CIPR-249 PO; +LEVO1TAB40 PO; +LISI30TA4 PO; +METR-265 PO; +METR-369 PO
== END ==
LOC: M LAB REF 13:00
PROVIDERS: ATTEND Internal Medicine
DX: R78.81 Bacteremia (principal)

== ENCOUNTER → 2024-11-25 | Outpatient (REF) | payer BC | LOC: M LAB REF 15:13 | PROVIDERS: ATTEND Internal Medicine | DX: M06.9 Rheumatoid arthritis, unspecified (principal); M79.7 Fibromyalgia ==

== ENCOUNTER → 2024-12-01 | Outpatient (CLI) | payer BC ==
[~2024-12-01] MED LIST changes: +E-Z-GAS II EFFERVESCENT PACKET (SODIUM BICARB./CITRIC ACID/SIMETHICONE) As Ordered ONE; +E-Z-HD 98% w/w 340GM SUSP BTL As Ordered ONE; +E-Z-PAQUE 96% w/w SUSP 176GM BTL As Ordered ONE
== END ==
LOC: M RAD 07:58
PROVIDERS: ATTEND Internal Medicine
DX: K30 Functional dyspepsia (principal); K44.9 Diaphragmatic hernia without obstruction or gangrene; K21.9 Gastro-esophageal reflux disease without esophagitis

== ENCOUNTER 2024-12-11 11:42 | Day surgery (SDC) | payer BC ==
[~2024-12-11] VITALS: Ht 162.6 cm; Wt 80.1 kg
[~2024-12-11 11:42] MED LIST changes: -E-Z-GAS II EFFERVESCENT PACKET (SODIUM BICARB./CITRIC ACID/SIMETHICONE) As Ordered ONE; -E-Z-HD 98% w/w 340GM SUSP BTL As Ordered ONE; -E-Z-PAQUE 96% w/w SUSP 176GM BTL As Ordered ONE; +LIDOCAINE 2% 100MG/5ML SDV (FOR ANES.) As Ordered ONE; +ONDA-83 PO; +dexmedeTOMIDine (4MCG/ML)200MCG/50ML BTL (PRECEDEX) As Ordered ONE; +fentaNYL 100 MCG/2 ML INJECTION As Ordered ONE; +propofoL 200 MG/20 ML VIAL As Ordered ONE
[2024-12-11 14:20] VITALS: TEMP 98.2
[2024-12-11 14:45] VITALS: BP 113/68; O2SAT 97
== END 2024-12-11 14:49 | disposition home or self-care (01) ==
LOC: M OPP 11:42
PROVIDERS: ATTEND Surgery
DX: K21.00 Gastro-esophageal reflux disease with esophagitis, without bleeding (principal); K31.89 Other diseases of stomach and duodenum; K44.9 Diaphragmatic hernia without obstruction or gangrene; R13.10 Dysphagia, unspecified; R93.3 Abnormal findings on diagnostic imaging of other parts of digestive tract; Z88.0 Allergy status to penicillin; Z88.6 Allergy status to analgesic agent; Z91.013 Allergy to seafood; Z91.010 Allergy to peanuts; Z91.018 Allergy to other foods; Z79.899 Other long term (current) drug therapy; Z90.49 Acquired absence of other specified parts of digestive tract
CPT/HCPCS: 43235; J3010

== ENCOUNTER → 2025-01-12 | Outpatient (CLI) | payer BC ==
[~2025-01-12] MED LIST changes: -LIDOCAINE 2% 100MG/5ML SDV (FOR ANES.) As Ordered ONE; -dexmedeTOMIDine (4MCG/ML)200MCG/50ML BTL (PRECEDEX) As Ordered ONE; -fentaNYL 100 MCG/2 ML INJECTION As Ordered ONE; -propofoL 200 MG/20 ML VIAL As Ordered ONE
== END ==
LOC: M RAD 11:59
PROVIDERS: ATTEND Urology
DX: Z87.898 Personal history of other specified conditions (principal); N28.89 Other specified disorders of kidney and ureter

== ENCOUNTER → 2025-03-23 | Outpatient (REF) | payer BC ==
[~2025-03-23] MED LIST changes: +CEVI1CAP PO; -ESSE250T PO; +MAGN250T17 PO; +OMEP40CA5 PO; +REGL5TAB2 PO; +STOO100C30 PO
== END ==
LOC: M LAB REF 12:08
PROVIDERS: ATTEND Internal Medicine
DX: D50.9 Iron deficiency anemia, unspecified (principal)

== ENCOUNTER 2025-05-20 07:17 | Day surgery (SDC) | payer BC ==
[~2025-05-20] VITALS: Ht 162.6 cm; Wt 74.5 kg
[2025-05-20] MEDS ORDERED: LIDOCAINE 2% 100 MG/5 ML SDV (FOR ANES.) As Ordered ONE (08:25)
[2025-05-20 08:56] VITALS: TEMP 97.3
[2025-05-20 09:07] VITALS: BP 103/58; O2SAT 96
== END 2025-05-20 09:13 | disposition home or self-care (01) ==
LOC: M OPP 07:17
PROVIDERS: ATTEND Internal Medicine Gastroenterology
DX: D12.4 Benign neoplasm of descending colon (principal); D12.2 Benign neoplasm of ascending colon; Z98.0 Intestinal bypass and anastomosis status; K57.30 Diverticulosis of large intestine without perforation or abscess without bleeding; K64.8 Other hemorrhoids; Z86.0100 Personal history of colon polyps, unspecified; Z88.0 Allergy status to penicillin; Z91.010 Allergy to peanuts; Z91.013 Allergy to seafood; Z91.018 Allergy to other foods; Z91.048 Other nonmedicinal substance allergy status; Z79.899 Other long term (current) drug therapy

== ENCOUNTER → 2025-05-24 | Outpatient (REF) | payer BC ==
[2025-05-26 15:03] LABS: HPV APTIMA Not Detected (Not Detected)
== END ==
LOC: M SFHCWAGY 17:54
PROVIDERS: ATTEND Nurse Practitioner Family
DX: Z12.4 Encounter for screening for malignant neoplasm of cervix (principal); Z11.51 Encounter for screening for human papillomavirus (HPV)

== ENCOUNTER → 2025-07-06 | Outpatient (REF) | payer BC | LOC: M LAB REF 15:21 | PROVIDERS: ATTEND Internal Medicine | DX: D50.9 Iron deficiency anemia, unspecified (principal) ==